=== PATIENT | male | born 1965 | race Two or more races ===

== ENCOUNTER 2016-11-27 05:22 | Observation (INO) | payer OTHER ==
[2016-11-27] MEDS ORDERED: NS 1,000 ML IV ONE (05:38)
[2016-11-27] MEDS ORDERED: HALOPERIDOL LACT 5 MG/ML INJ IVP ONE (05:38)
--- NOTE | 2016-11-27 05:39 | EDPHY ---
H & P Stated Complaint: NAUSE VOMITING PAST 5 HRS, HX GASTROPHORISSI - Personal History Current Tetanus/Diphtheria Vaccine: Yes Current Tetanus Diphtheria and Acellular Pertussis (TDAP): Yes - Medical/Surgical History Hx Asthma: No Hx Chronic Respiratory Disease: No Hx Diabetes: Yes Hx Cardiac Disease: No Hx Renal Disease: No Hx Cirrhosis: No Hx Alcoholism: No Hx HIV/AIDS: No Other PMH: GASTROPARISIS - Social History Smoking Status: Never smoked HPI/ROS: Chief Complaint: Abdominal pain, nausea, vomiting HPI: 51-year-old male with a history of type 2 diabetes and gastroparesis is presenting worsening nausea vomiting this morning which is similar to her prior episodes. Patient states that he moved to [place] 1 week ago from [facility]. He states that he often has to be to be admitted to the hospital every several months for episodes of nausea and vomiting. Has gastroparesis secondary to his type 2 diabetes. States that he has been having issues for about 6 years. No fevers or chills. Does use medical marijuana which he states helps his symptoms. No hematemesis. No diarrhea or constipation. No melena. No chest pain or shortness of breath ROS: 10 point Review of Systems is negative except as noted in the HPI. PMH: Gastroparesis, type 2 diabetes Medications: Insulin, marijuana Allergies: Penicillin Social History: No smoking, no alcohol, daily medical marijuana Family History: non-contributory Physical Exam: Gen: Awake, Alert, No Distress HEENT: Nose: no rhinorrhea Eyes: PERRLA, EOMI Mouth: Moist mucosa Neck: Supple, no JVD Chest: nontender, lungs clear to auscultation Heart: S1, S2 normal, no murmur Abd: Soft, mild diffuse tenderness, nonsurgical, no guarding Back: no CVA tenderness, no midline tenderness Ext: no edema, non-tender Skin: no rash Neuro: CN II-XII intact, Sensation grossly intact, Strength 5/5 in bilateral upper and lower extremities (Derrell Bowen) Constitutional: Initial Vital Signs Temperature (C) 36.9 C 11/27/16 05:23 Heart Rate 93 11/27/16 05:23 Respiratory Rate 20 11/27/16 05:23 Blood Pressure 141/93 H 11/27/16 05:23 O2 Sat (%) 95 11/27/16 05:23 O2 Delivery Mode Room Air Allergies/Adverse Reactions: penicillin G Allergy (Verified 11/27/16 05:26) Home Medications: Medication Instructions Recorded Medical Marijuana 11/27/16 Medical Decision Making ED Course/Re-evaluation: 51-year-old male with a history of gastroparesis and vomiting syndrome. Patient will be given Haldol and IV fluids initially and reassess. Patient is continuing to complain of nausea after receiving Haldol but he did have a. Where he was resting and sleeping comfortably. I have ordered Zofran for him. Patient will be signed out to Dr. Ruiz pending improvement if his symptoms or final disposition. (Derrell Bowen) This patient was signed over to me at shift change. He has already received Haldol and Zofran IV for persistent vomiting. 7:45 a.m.- Reglan and Benadryl IV given for persistent dry heaves. 8:35 am- still vomiting, Ativan 1 mg IV ordered. Regular insulin 6 units IV given for hyperglycemia. Will admit to the hospitalist service. (Lyn Ruiz ) Differential Diagnosis: Differential diagnosis includes though it is not limited to DKA, appendicitis, cholecystitis, diverticulitis, pyelonephritis, bowel perforation, small bowel obstruction. (Lyn Ruiz) - Data Points Laboratory Results: Laboratory Results 11/27/16 06:05 11/27/16 06:05 11/27/16 11/27/16 06:05 06:05 WBC 11.14 10^3/uL H 10^3/uL (3.80-9.50) RBC 5.34 10^6/uL 10^6/uL (4.40-6.38) Hgb 16.4 g/dL g/dL (13.7-17.5) Hct 47.0 % % (40.0-51.0) MCV 88.0 fL fL (81.5-99.8) MCH 30.7 pg pg (27.9-34.1) MCHC 34.9 g/dL g/dL (32.4-36.7) RDW 12.9 % % (11.5-15.2) Plt Count 218 10^3/uL 10^3/uL (150-400) MPV 12.6 fL H fL (8.7-11.7) Neut % (Auto) 66.3 % % (39.3-74.2) Lymph % (Auto) 22.8 % % (15.0-45.0) [place] % (Auto) 8.3 % % (4.5-13.0) Eos % (Auto) 1.4 % % (0.6-7.6) Baso % (Auto) 0.8 % % (0.3-1.7) Nucleat RBC Rel Count 0.0 % % (0.0-0.2) Absolute Neuts (auto) 7.38 10^3/uL H 10^3/uL (1.70-6.50) Absolute Lymphs (auto) 2.54 10^3/uL 10^3/uL (1.00-3.00) Absolute Monos (auto) 0.93 10^3/uL H 10^3/uL (0.30-0.80) Absolute Eos (auto) 0.16 10^3/uL 10^3/uL (0.03-0.40) Absolute Basos (auto) 0.09 10^3/uL 10^3/uL (0.02-0.10) Absolute Nucleated RBC 0.00 10^3/uL 10^3/uL (0-0.01) Immature Gran % 0.4 % % (0.0-1.1) Immature Gran # 0.04 10^3/uL 10^3/uL (0.00-0.10) Sodium 139 mEq/L mEq/L (134-144) Potassium 3.7 mEq/L mEq/L (3.5-5.2) Chloride 103 mEq/L mEq/L (97-110) Carbon Dioxide 22 mEq/l mEq/l (22-31) Anion Gap 14 mEq/L mEq/L (8-16) BUN 16 mg/dL mg/dL (7-23) Creatinine 0.7 mg/dL mg/dL (0.7-1.3) Estimated GFR > 60 Glucose 374 mg/dL H mg/dL (70-100) Calcium 9.7 mg/dL mg/dL (8.5-10.4) Medications Given: Discontinued Medications Diphenhydramine HCl (Benadryl Injection) 25 mg IVP EDNOW ONE Stop: 11/27/16 07:47 Last Admin: 11/27/16 08:07 Dose: 25 mg Haloperidol Lactate (Haldol Injection) 2.5 mg IVP EDNOW ONE Stop: 11/27/16 05:39 Last Admin: 11/27/16 06:00 Dose: 2.5 mg Sodium Chloride (Ns) 1,000 mls @ 0 mls/hr IV ONCE ONE PRN Reason: Wide Open Stop: 11/27/16 05:39 Last Admin: 11/27/16 06:00 Dose: 1,000 mls Lorazepam (Ativan Injection) 1 mg IVP EDNOW ONE Stop: 11/27/16 08:38 Last Admin: 11/27/16 08:44 Dose: 1 mg Metoclopramide HCl (Reglan Injection) 10 mg IVP EDNOW ONE Stop: 11/27/16 07:47 Last Admin: 11/27/16 08:09 Dose: 10 mg Ondansetron HCl (Zofran) 4 mg IVP EDNOW ONE Stop: 11/27/16 06:53 Last Admin: 11/27/16 06:55 Dose: 4 mg Departure - Departure Disposition: [facility] Inpatient Acute Clinical Impression: Intractable vomiting Qualifiers: Vomiting type: cyclical vomiting Nausea presence: with nausea Qualified Code(s) : G43.A1 - Cyclical vomiting, intractable Diabetes Qualifiers: Diabetes mellitus type: type 2 Diabetes mellitus complication status: with hyperglycemia Condition: Fair Referrals: NONE *PRIMARY CARE P,. [Primary Care Provider] - As per Instructions
[2016-11-27 06:12] LABS: % IMMATURE GRANULYOCYTES 0.4 % (0.0-1.1); ABSOLUTE IMMATURE GRANULOCYTES 0.04 10^3/uL (0.00-0.10); ADD DIFF? NO; ADD MORPH? NO; ADD SCAN? NO; ATYPICAL LYMPHOCYTE FLAG 0 (0-99); FRAGMENT RBC FLAG 0 (0-99); HEMOGLOBIN 16.4 g/dL (13.7-17.5); LEFT SHIFT FLG 0 (0-99); LIPEMIA HEMOLYSIS FLAG 90 (0-99); MEAN CELL HEMOGLOBIN 30.7 pg (27.9-34.1); MEAN CELL HEMOGLOBIN CONCENTR. 34.9 g/dL (32.4-36.7); MEAN PLATELET VOLUME 12.6 fL (8.7-11.7); PLATELET CLUMPS FLAG 0 (0-99); PLATELET COUNT 218 10^3/uL (150-400); RED BLOOD CELL COUNT 5.34 10^6/uL (4.40-6.38); RED CELL DISTRIBUTION WIDTH 12.9 % (11.5-15.2)
[2016-11-27 06:25] LABS: ANION GAP 14 mEq/L (8-16); CALCIUM 9.7 mg/dL (8.5-10.4); CARBON DIOXIDE 22 mEq/l (22-31); CHLORIDE 103 mEq/L (97-110); CREATININE 0.7 mg/dL (0.7-1.3); GLOMERULAR FILTRATION RATE > 60; GLUCOSE 374 mg/dL (70-100); POTASSIUM 3.7 mEq/L (3.5-5.2); SODIUM 139 mEq/L (134-144)
[2016-11-27] MEDS ORDERED: ONDANSETRON 4 MG/2 ML VIAL IVP ONE (06:52)
[2016-11-27] MEDS ORDERED: METOCLOPRAMIDE 10 MG/2 ML VIAL IVP ONE (07:46)
[2016-11-27] MEDS ORDERED: LORazepam 2 MG/ML INJ IVP ONE (08:37)
[2016-11-27] MEDS ORDERED: INSULIN REGULAR HUMAN 100 UNIT/ML IVP ONE (09:00)
[2016-11-27] MEDS ORDERED: OLANZapine DISINTEGR 5 MG TAB PO ONE (09:27)
--- NOTE | 2016-11-27 11:33 | PDGENHP ---
History and Physical History and Physical: Chief complaint: Intractable nausea and vomiting History of present illness: The patient is a 51-year-old male w/ PMH diabetes mellitus and gastroparesis and medical noncompliance who is being admitted for intractable nausea, vomiting , abdominal pain, and diarrhea that started yesterday. He cannot quantify episodes of vomiting, saying they have been "countless." Vomitus is described as yellow and brown. Denies blood in stool. Denies eating bad or questionable food such as mayonnaise dishes. Had chicken and pasta yesterday. Abdominal pain is worst in midepigastrium but is diffuse. Characterized as crampy and severe. Symptoms are better w/ "Dilaudid, Zofran, and compazine all at the same time." Symptoms are worse with hot, spicy food. He says this is a recurrent issue that started recurrently 5 years ago (but he did not always have diarrhea). He has gone to other hospitals for this in the past, mostly [facility] in [place]. Pt started smoking marijuana about 3 yrs ago to try to help w/ the recurrent vomiting. When he was told marijuana could contribute to his vomiting, he had tried abstaining from marijuana use 3 separate times in the past for up to 1.5 weeks at a time. He has had similar episodes in the past. Twice a month x 6 years. Has tried Reglan, which does not help. Has not tried using antidepressants. Has not seen a GI doctor for this. Has seen PCP in [place] in the past. He has not established a new doctor here. Past medical history: diabetes mellitus type 2 w/ peripheral neuropathy and gastroparesis and vision loss. Past surgical history: none. Medications: none. Was taking 75/25 insulin, but ran out of it a month ago. Denies having been on HTN or cholesterol medicine. Allergies: PCN - itching. Social history: denies alcohol use, tobacco use. Uses marijuana daily. Family history: all are healthy. , lives with and teenage son. They moved to [place] this last week. Review of systems: Gen: +fatigue, fever/chills. Head: no CASAS. No head trauma. Eyes: No vision changes. +chronic vision impairment from diabetes. Throat: +mild sore throat. +mild cough. (from vomiting). CV: no CP. no tachycardia. Resp: no SOB. no wheeze. GI: +abd pain, nausea, vomiting, diarrhea. no blood in stool. : no blood in urine or pain w/ urination. Heme/lymph: no leg swelling or swollen LNs. Skin: no rash or new lesions. Physical exam: General: The patient is a middle-aged male who is somnolent and in no acute distress. HEENT: normocephalic, extraocular movements intact, conjunctivae clear, no lesions on face. Nares and oral mucosa pink and dry. Neck: trachea midline, no visible masses, no external lesions. CV: +S1/S2, RRR, no MRG. Resp: unlabored, CTAB no RRW. Abd: soft and nondistended. Bowel sounds are present. Diffusely tender, worse in mid epigastrium. No rebound tenderness or guarding. No rigidity. Musculoskeletal: Slow, unsteady gait. Normal muscle bulk and tone. Neuro: cranial nerves II XII grossly intact. Intact gross motor and sensory function. Psych: appropriate mood/ blunted affect. Skin: no pallor. Vitals: Reviewed Labs: personally reviewed and interpreted. Other Data: none. Impression and plan: Abdominal pain w/ intractable nausea, vomiting, and diarrhea - likely Acute Gastroenteritis Dehydration, 2/2 above Generalized weakness, 2/2 above Diabetes Mellitus type 2 with gastroparesis, peripheral neuropathy, retinopathy Medical noncompliance Marijuana use -IVF. -Clear liquid diet, ADAT. -prn antiemetics, analgesics. -counseled pt on the importance of medical compliance. -restarting insulin - pt cannot remember how much he used to take. Starting low , will likely need adjustment. -Check lipase and LFT. -Counseled pt about how marijuana can cause hyperemesis and that it takes at least 2 weeks of not consuming marijuana to notice an effect. -VTE ppx - ambulatory. -Code status - full. DISPO: Observation in [facility] for <2 midnight stay anticipated.
[2016-11-27] MEDS ORDERED: OXYCODONE/APAP 5/325 TAB PO PRN (12:13)
[2016-11-27] MEDS ORDERED: METOCLOPRAMIDE 10 MG/2 ML VIAL IVP PRN (12:13)
[2016-11-27] MEDS ORDERED: D50W 25 GM/50 ML SYR IVP PRN (12:13)
[2016-11-27] MEDS ORDERED: ACETAMINOPHEN 325 MG TAB PO PRN (12:13)
[2016-11-27] MEDS ORDERED: ONDANSETRON DISINTEGRATING 4 MG TAB PO PRN (12:13)
[2016-11-27] MEDS ORDERED: PROTOCOL MAGNESIUM 1 DOSE IV PRN (12:39)
[2016-11-27] MEDS ORDERED: PROTOCOL POTASSIUM 1 DOSE MISC PRN (12:39)
[2016-11-27] MEDS: HYDROmorphONE/DILAUDID 1 MG/ML SYR IVP PRN ×3 (13:43→21:44)
[2016-11-27] MEDS: ONDANSETRON 4 MG/2 ML VIAL IVP PRN ×3 (13:43→21:44)
[2016-11-27 15:52] LABS: ALBUMIN 4.5 g/dL (3.5-5.0); BILIRUBIN,TOTAL 0.5 mg/dL (0.1-1.4); BILIRUBIN-CONJUGATED 0.3 mg/dL (0.0-0.5); BILIRUBIN-UNCONJUGATED 0.2 mg/dL (0.0-1.1); MAGNESIUM 1.7 mg/dL (1.6-2.3); TOTAL PROTEIN 7.6 g/dL (6.3-8.2)
[2016-11-27] MEDS: INSULIN LISPRO 100 UNIT/ML SC SCH (17:33)
[2016-11-27 18:29] LABS: POTASSIUM 4.3 mEq/L (3.5-5.2)
[2016-11-27] MEDS ORDERED: INSULIN GLARGINE 100 UNITS/ML SYRINGE SC SCH (21:00)
[2016-11-27] MEDS: NS W/ 20 KCl/L 1,000 ML IV SCH (21:45)
[2016-11-28] MEDS: HYDROmorphONE/DILAUDID 1 MG/ML SYR IVP PRN (03:05)
[2016-11-28] MEDS: ONDANSETRON 4 MG/2 ML VIAL IVP PRN (03:06)
[2016-11-28] MEDS: NS W/ 20 KCl/L 1,000 ML IV SCH (06:11)
[2016-11-28 06:15] LABS: % IMMATURE GRANULYOCYTES 0.3 % (0.0-1.1); ABSOLUTE IMMATURE GRANULOCYTES 0.04 10^3/uL (0.00-0.10); ADD DIFF? NO; ADD MORPH? NO; ADD SCAN? NO; ATYPICAL LYMPHOCYTE FLAG 0 (0-99); FRAGMENT RBC FLAG 0 (0-99); HEMATOCRIT 42.4 % (40.0-51.0); HEMOGLOBIN 14.6 g/dL (13.7-17.5); LEFT SHIFT FLG 0 (0-99); LIPEMIA HEMOLYSIS FLAG 90 (0-99); MEAN CELL HEMOGLOBIN 30.9 pg (27.9-34.1); MEAN CELL HEMOGLOBIN CONCENTR. 34.4 g/dL (32.4-36.7); MEAN CELL VOLUME 89.8 fL (81.5-99.8); MEAN PLATELET VOLUME 12.5 fL (8.7-11.7); PLATELET CLUMPS FLAG 0 (0-99); PLATELET COUNT 162 10^3/uL (150-400); RED BLOOD CELL COUNT 4.72 10^6/uL (4.40-6.38); RED CELL DISTRIBUTION WIDTH 12.8 % (11.5-15.2)
[2016-11-28 06:36] LABS: ANION GAP 9 mEq/L (8-16); CALCIUM 8.8 mg/dL (8.5-10.4); CARBON DIOXIDE 22 mEq/l (22-31); CHLORIDE 105 mEq/L (97-110); CREATININE 0.7 mg/dL (0.7-1.3); GLOMERULAR FILTRATION RATE > 60; GLUCOSE 175 mg/dL (70-100); MAGNESIUM 1.6 mg/dL (1.6-2.3); POTASSIUM 4.2 mEq/L (3.5-5.2); SODIUM 136 mEq/L (134-144)
[2016-11-28] MEDS: INSULIN LISPRO 100 UNIT/ML SC SCH ×2 (07:52→11:54)
[2016-11-28] MEDS ORDERED: MAGNESIUM SULF 1 GM/DEXTROSE 100 ML IV ONE (08:13)
[2016-11-28 11:47] VITALS: BP 113/76; PULSE 82; RESP 16; TEMP 98.6; O2SAT 99
--- NOTE | 2016-11-28 12:56 | PDDCSUM ---
Discharge Summary Discharge Summary: Date of Admission: [] Date of Discharge: [] Discharge Diagnoses: [] Admission Diagnoses: [] Consultants: [] Hospital Course: [] Physical Exam: [] Condition: [] Discharged to: [] Pertinent tests/labs/imaging: [] Medications: [] Special instructions: [] Follow up: [] [</>] 30 minutes of total time was spent on counseling and coordination of care for this patient's discharge.
== END 2016-11-28 13:46 | disposition home or self-care (01) ==
LOC: F3E 11:26
PROVIDERS: ADMIT Internal Medicine; ATTEND Internal Medicine
DX: E11.43 Type 2 diabetes mellitus with diabetic autonomic (poly)neuropathy (principal); K31.84 Gastroparesis; E86.0 Dehydration; E11.319 Type 2 diabetes mellitus with unspecified diabetic retinopathy without macular edema; H35.00 Unspecified background retinopathy; E11.42 Type 2 diabetes mellitus with diabetic polyneuropathy; G62.9 Polyneuropathy, unspecified; F12.90 Cannabis use, unspecified, uncomplicated; Z79.4 Long term (current) use of insulin; Z91.14 Patient's other noncompliance with medication regimen
CPT/HCPCS: 96361; 96374; 96375; 99285; G0378; J1170; J1200; J1815; J2060; J2405; J2765; J3475

== ENCOUNTER 2016-11-29 16:57 | Observation (INO) | payer OTHER ==
[2016-11-29] MEDS ORDERED: HALOPERIDOL LACT 5 MG/ML INJ IVP ONE (17:13)
--- NOTE | 2016-11-29 17:36 | EDPHY ---
H & P Stated Complaint: Gastroperisis dc'd yesterday Time Seen by Provider: 11/29/16 17:10 HPI/ROS: CHIEF COMPLAINT: nausea, vomiting HISTORY OF PRESENT ILLNESS: 51-year-old male who was discharged from the hospital yesterday for intractable nausea and vomiting with history of type 2 diabetes and gastroparesis noncompliant with his medications. Patient moved to [place] from [place] 1 week ago, he has not taken his insulin for 1 month. Patient reports episodes of intractable nausea, vomiting and abdominal pain that occur almost monthly requiring a 3 day stay in the hospital usually. Patient reports he was discharged home yesterday and was feeling fine until he ate which made his symptoms return. Pt denies fevers. He reports his pain is typical and no different than it usually is. He is requesting IV Dilaudid, Zofran and Compazine all at the same time. Patient reports he started smoking marijuana for these symptoms 2 years ago. He smokes daily. It helps with his nausea. REVIEW OF SYSTEMS: A comprehensive 10 point review of systems is otherwise negative aside from elements mentioned in the history of present illness. Source: Patient Exam Limitations: No limitations - Personal History Current Tetanus/Diphtheria Vaccine: Unsure Current Tetanus Diphtheria and Acellular Pertussis (TDAP): Unsure - Medical/Surgical History Hx Asthma: No Hx Chronic Respiratory Disease: No Hx Diabetes: Yes Hx Cardiac Disease: No Hx Renal Disease: No Hx Cirrhosis: No Hx Alcoholism: No Hx HIV/AIDS: No Hx Splenectomy or Spleen Trauma: No Other PMH: GASTROPARISIS r/t dm 2 poorly controlled - Social History Smoking Status: Never smoked Constitutional: Initial Vital Signs Temperature (C) 37.2 C 11/29/16 17:01 Heart Rate 75 11/29/16 17:01 Respiratory Rate 16 11/29/16 17:01 Blood Pressure 127/76 H 11/29/16 17:01 O2 Sat (%) 99 11/29/16 17:01 O2 Delivery Mode Room Air Allergies/Adverse Reactions: penicillin G Allergy (Verified 11/27/16 05:26) Home Medications: Medication Instructions Recorded Insulin NPH Hum/Reg Insulin Hm 7 unit SQ BID #10 ml 11/28/16 [Novolin 70-30 100 Unit/ml Vial] [place], Insulin Disposable 1 each MC BID #100 dis.needle 11/28/16 [Unifine Pentips] Syringe [Syringe, Insulin] 1 syr SQ BID #100 ea 11/28/16 Medical Decision Making ED Course/Re-evaluation: IV established, CBC and chemistry panel obtained, blood sugars 265, otherwise labs are unremarkable. Patient is given 5 mg of IV Haldol. He reports he is still having significant nausea and pain and is requesting Dilaudid. I have discussed the patient that I do not give narcotics for chronic abdominal pain and vomiting. Patient was given 25 mg of Benadryl and 50 mcg of intranasal ketamine. On re-examination he reports he is feeling better. I discussed discharging him in sending him home oral medications and patient reports he will be right back in the emergency department if I discharge him home. Patient says he has had this happen to him for many years and he is positive he will not be okay if I discharge him home. Patient will be admitted to the hospitalist. I have spoken with Dr. Costa. 1 L normal saline is hanging. - Data Points Laboratory Results: Laboratory Results 11/29/16 17:31 11/29/16 17:31 11/29/16 11/29/16 17:31 17:31 WBC 11.54 10^3/uL H 10^3/uL (3.80-9.50) RBC 5.28 10^6/uL 10^6/uL (4.40-6.38) Hgb 16.3 g/dL g/dL (13.7-17.5) Hct 46.0 % % (40.0-51.0) MCV 87.1 fL fL (81.5-99.8) MCH 30.9 pg pg (27.9-34.1) MCHC 35.4 g/dL g/dL (32.4-36.7) RDW 12.9 % % (11.5-15.2) Plt Count 183 10^3/uL 10^3/uL (150-400) MPV 12.4 fL H fL (8.7-11.7) Neut % (Auto) 71.3 % % (39.3-74.2) Lymph % (Auto) 18.0 % % (15.0-45.0) [place] % (Auto) 9.9 % % (4.5-13.0) Eos % (Auto) 0.1 % L % (0.6-7.6) Baso % (Auto) 0.4 % % (0.3-1.7) Nucleat RBC Rel Count 0.0 % % (0.0-0.2) Absolute Neuts (auto) 8.22 10^3/uL H 10^3/uL (1.70-6.50) Absolute Lymphs (auto) 2.08 10^3/uL 10^3/uL (1.00-3.00) Absolute Monos (auto) 1.14 10^3/uL H 10^3/uL (0.30-0.80) Absolute Eos (auto) 0.01 10^3/uL L 10^3/uL (0.03-0.40) Absolute Basos (auto) 0.05 10^3/uL 10^3/uL (0.02-0.10) Absolute Nucleated RBC 0.00 10^3/uL 10^3/uL (0-0.01) Immature Gran % 0.3 % % (0.0-1.1) Immature Gran # 0.04 10^3/uL 10^3/uL (0.00-0.10) Sodium 134 mEq/L mEq/L (134-144) Potassium 3.9 mEq/L mEq/L (3.5-5.2) Chloride 96 mEq/L L mEq/L (97-110) Carbon Dioxide 23 mEq/l mEq/l (22-31) Anion Gap 15 mEq/L mEq/L (8-16) BUN 11 mg/dL mg/dL (7-23) Creatinine 0.8 mg/dL mg/dL (0.7-1.3) Estimated GFR > 60 Glucose 265 mg/dL H mg/dL (70-100) Calcium 10.3 mg/dL D mg/dL (8.5-10.4) Total Bilirubin 1.5 mg/dL H D mg/dL (0.1-1.4) Conjugated Bilirubin 0.3 mg/dL mg/dL (0.0-0.5) Unconjugated Bilirubin 1.2 mg/dL H mg/dL (0.0-1.1) AST 18 IU/L IU/L (17-59) ALT 33 IU/L IU/L (21-72) Alkaline Phosphatase 85 IU/L IU/L (38-126) Total Protein 7.7 g/dL g/dL (6.3-8.2) Albumin 4.6 g/dL g/dL (3.5-5.0) Lipase 33.0 IU/L IU/L (23-300) Medications Given: Discontinued Medications Diphenhydramine HCl (Benadryl Injection) 25 mg IVP EDNOW ONE Stop: 11/29/16 17:45 Last Admin: 11/29/16 17:56 Dose: 25 mg Haloperidol Lactate (Haldol Injection) 5 mg IVP EDNOW ONE Stop: 11/29/16 17:14 Last Admin: 11/29/16 17:33 Dose: 5 mg Sodium Chloride (Ns) 1,000 mls @ 0 mls/hr IV ONCE ONE; Wide Open PRN Reason: Protocol Stop: 11/29/16 19:22 Last Admin: 11/29/16 19:30 Dose: 1,000 mls Ketamine HCl (Ketamine) 50 mg NASAL EDNOW ONE Stop: 11/29/16 17:45 Last Admin: 11/29/16 17:56 Dose: 50 mg Departure - Departure Disposition: [facility] Inpatient Acute Clinical Impression: Intractable vomiting Qualifiers: Vomiting type: cyclical vomiting Nausea presence: with nausea Qualified Code(s) : G43.A1 - Cyclical vomiting, intractable Condition: Fair Referrals: NONE *PRIMARY CARE P,. [Primary Care Provider] - As per Instructions
[2016-11-29] MEDS ORDERED: KETAMINE 500 MG/10 ML VIAL NASAL ONE (17:44)
[2016-11-29 17:51] LABS: % IMMATURE GRANULYOCYTES 0.3 % (0.0-1.1); ABSOLUTE IMMATURE GRANULOCYTES 0.04 10^3/uL (0.00-0.10); ADD DIFF? NO; ADD MORPH? NO; ADD SCAN? NO; ATYPICAL LYMPHOCYTE FLAG 0 (0-99); FRAGMENT RBC FLAG 0 (0-99); HEMOGLOBIN 16.3 g/dL (13.7-17.5); LEFT SHIFT FLG 0 (0-99); LIPEMIA HEMOLYSIS FLAG 90 (0-99); MEAN CELL HEMOGLOBIN 30.9 pg (27.9-34.1); MEAN CELL HEMOGLOBIN CONCENTR. 35.4 g/dL (32.4-36.7); MEAN CELL VOLUME 87.1 fL (81.5-99.8); MEAN PLATELET VOLUME 12.4 fL (8.7-11.7); PLATELET CLUMPS FLAG 0 (0-99); PLATELET COUNT 183 10^3/uL (150-400); RED BLOOD CELL COUNT 5.28 10^6/uL (4.40-6.38); RED CELL DISTRIBUTION WIDTH 12.9 % (11.5-15.2)
[2016-11-29 18:11] LABS: ALANINE AMINOTRANSFERASE 33 IU/L (21-72); ALBUMIN 4.6 g/dL (3.5-5.0); ALKALINE PHOSPHATASE 85 IU/L (38-126); ANION GAP 15 mEq/L (8-16); ASPARTATE AMINOTRANSFERASE 18 IU/L (17-59); BILIRUBIN,TOTAL 1.5 mg/dL (0.1-1.4); BILIRUBIN-CONJUGATED 0.3 mg/dL (0.0-0.5); BILIRUBIN-UNCONJUGATED 1.2 mg/dL (0.0-1.1); CALCIUM 10.3 mg/dL (8.5-10.4); CARBON DIOXIDE 23 mEq/l (22-31); CHLORIDE 96 mEq/L (97-110); CREATININE 0.8 mg/dL (0.7-1.3); GLOMERULAR FILTRATION RATE > 60; GLUCOSE 265 mg/dL (70-100); POTASSIUM 3.9 mEq/L (3.5-5.2); SODIUM 134 mEq/L (134-144); TOTAL PROTEIN 7.7 g/dL (6.3-8.2)
[2016-11-29] MEDS ORDERED: NS 1,000 ML IV ONE ×2 (19:21→20:49)
[2016-11-29] MEDS ORDERED: LORazepam 2 MG/ML INJ IVP PRN (20:49)
[2016-11-29] MEDS ORDERED: ACETAMINOPHEN 325 MG TAB PO PRN (20:49)
[2016-11-29] MEDS ORDERED: NS 1,000 ML IV SCH (21:00)
[2016-11-29 21:32] LABS: ANION GAP 10 mEq/L (8-16); CALCIUM 8.8 mg/dL (8.5-10.4); CARBON DIOXIDE 23 mEq/l (22-31); CHLORIDE 102 mEq/L (97-110); CREATININE 0.6 mg/dL (0.7-1.3); GLOMERULAR FILTRATION RATE > 60; GLUCOSE 231 mg/dL (70-100); POTASSIUM 3.9 mEq/L (3.5-5.2); SODIUM 135 mEq/L (134-144)
[2016-11-29] MEDS: ONDANSETRON DISINTEGRATING 4 MG TAB PO SCH (22:08)
[2016-11-29] MEDS: PROMETHAZINE HCL 25 MG/ML INJ IVP SCH (23:16)
--- NOTE | 2016-11-29 23:20 | PDGENHP ---
History and Physical - Chief Complaint Vomiting - History of Present Illness 51 yo M w/ IDDM dx'd 12 years ago c/b gastroparesis and neuropathy readmitted after recent discharge for intractable nausea and vomiting. Patient recently admitted for his usual N/V symptoms. He was discharged yesterday but was unable to tolerate PO at home. He continues to have nausea, frequent non-bloody vomiting, and diffuse abdominal pain. He reports having similar symptoms twice per month for the last 6 years. He has had numerous tests in the past and states the only thing he remembers being abnormal is a gastric emptying study that showed gastroparesis. He smokes significant amounts of MJ daily and consumes about 1 oz per week. History Information - Allergies/Home Medication List Allergies/Adverse Reactions: penicillin G Allergy (Verified 11/29/16 19:42) Unknown Home Medications: Esomeprazole Magnesium [Nexium] 20 mg PO DAILY 11/29/16 [Last Taken 11/27/16] Insulin NPH Hum/Reg Insulin Hm [Novolin 70-30 100 Unit/ml Vial] 10 unit SQ BID 11/29/16 [Last Taken 11/27/16] I have personally reviewed and updated: family history, medical history - Past Medical History diabetes type 2 Additional medical history: Cyclical N/V - Surgical History Reports: no pertinent surgical hx - Family History Positive for: cancer, diabetes type II Additional family history: Denies family hx of gastrointestinal disease - Social History Smoking Status: Never smoked Alcohol Use: None Drug Use: Marijuana (1 oz weekly) Review of Systems ROS: 10pt was reviewed & negative except for what was stated in HPI & below Physical Exam Temp Pulse Resp BP Pulse Ox 37.3 C 88 16 152/84 H 96 11/29/16 20:25 11/29/16 20:25 11/29/16 20:25 11/29/16 20:25 11/29/16 20:25 Constitutional: appears nourished, uncomfortable Eyes: PERRL, EOMI Ears, Nose, Mouth, Throat: moist mucous membranes, hearing normal Cardiovascular: regular rate and rhythym, no murmur, rub, or gallop Respiratory: no respiratory distress, clear to auscultation Gastrointestinal: normoactive bowel sounds, tenderness (Diffuse), No guarding, No rebound Skin: warm, no rashes or abrasions Musculoskeletal: full muscle strength, no muscle tenderness Neurologic: AAOx3, CN II-XII Intact Psychiatric: interacting appropriately, not anxious Lab Data & Imaging Review 11/29/16 17:31 11/29/16 21:02 WBC 11.54 10^3/uL (3.80-9.50) H 11/29/16 17:31 RBC 5.28 10^6/uL (4.40-6.38) 11/29/16 17:31 Hgb 16.3 g/dL (13.7-17.5) 11/29/16 17:31 Hct 46.0 % (40.0-51.0) 11/29/16 17:31 MCV 87.1 fL (81.5-99.8) 11/29/16 17:31 MCH 30.9 pg (27.9-34.1) 11/29/16 17:31 MCHC 35.4 g/dL (32.4-36.7) 11/29/16 17:31 RDW 12.9 % (11.5-15.2) 11/29/16 17:31 Plt Count 183 10^3/uL (150-400) 11/29/16 17:31 MPV 12.4 fL (8.7-11.7) H 11/29/16 17:31 Neut % (Auto) 71.3 % (39.3-74.2) 11/29/16 17:31 Lymph % (Auto) 18.0 % (15.0-45.0) 11/29/16 17:31 [place] % (Auto) 9.9 % (4.5-13.0) 11/29/16 17:31 Eos % (Auto) 0.1 % (0.6-7.6) L 11/29/16 17:31 Baso % (Auto) 0.4 % (0.3-1.7) 11/29/16 17:31 Nucleat RBC Rel Count 0.0 % (0.0-0.2) 11/29/16 17:31 Absolute Neuts (auto) 8.22 10^3/uL (1.70-6.50) H 11/29/16 17:31 Absolute Lymphs (auto) 2.08 10^3/uL (1.00-3.00) 08/07/17 17:31 Absolute Monos (auto) 1.14 10^3/uL (0.30-0.80) H 11/29/16 17:31 Absolute Eos (auto) 0.01 10^3/uL (0.03-0.40) L 11/29/16 17:31 Absolute Basos (auto) 0.05 10^3/uL (0.02-0.10) 11/29/16 17:31 Absolute Nucleated RBC 0.00 10^3/uL (0-0.01) 11/29/16 17:31 Immature Gran % 0.3 % (0.0-1.1) 11/29/16 17:31 Immature Gran # 0.04 10^3/uL (0.00-0.10) 11/29/16 17:31 Sodium 135 mEq/L (134-144) 11/29/16 21:02 Potassium 3.9 mEq/L (3.5-5.2) 11/29/16 21:02 Chloride 102 mEq/L (97-110) 11/29/16 21:02 Carbon Dioxide 23 mEq/l (22-31) 11/29/16 21:02 Anion Gap 10 mEq/L (8-16) 11/29/16 21:02 BUN 9 mg/dL (7-23) 11/29/16 21:02 Creatinine 0.6 mg/dL (0.7-1.3) L 11/29/16 21:02 Estimated GFR > 60 11/29/16 21:02 Glucose 231 mg/dL (70-100) H 11/29/16 21:02 Calcium 8.8 mg/dL (8.5-10.4) 11/29/16 21:02 Total Bilirubin 1.5 mg/dL (0.1-1.4) H D 11/29/16 17:31 Conjugated Bilirubin 0.3 mg/dL (0.0-0.5) 11/29/16 17:31 Unconjugated Bilirubin 1.2 mg/dL (0.0-1.1) H 11/29/16 17:31 AST 18 IU/L (17-59) 11/29/16 17:31 ALT 33 IU/L (21-72) 11/29/16 17:31 Alkaline Phosphatase 85 IU/L (38-126) 11/29/16 17:31 Total Protein 7.7 g/dL (6.3-8.2) 11/29/16 17:31 Albumin 4.6 g/dL (3.5-5.0) 11/29/16 17:31 Lipase 33.0 IU/L (23-300) 11/29/16 17:31 Assessment & Plan Assessment: 51 yo M w/ IDDM readmitted after recent discharge with ongoing nausea and vomiting. Plan: 1. Intractable nausea/vomiting - Reviewed recent admission records where patient was treated supportively with IVF and anti-emetics. Considerations of diagnosis include cyclical vomiting syndrome, gastroparesis, and cannabis hyperemesis syndrome. Patient does state that gastric emptying study was abnormal in the past. Noting long history of diabetes, this seems reasonable. However, he does smoke marijuana heavily as well, which is surely not helping. Of note, he says he was previously on metoclopramide but this was discontinued due to dystonic reaction. - IVF, anti-emetics scheduled + PRN - May benefit from erythromycin and/or GI consultation 2. IDDM - Takes insulin 70/30 10u BID as an outpatient. Will manage here with sliding scale for now noting minimal PO intake. Diet - Clears, ADAT Code - Full Ppx - Low risk, ambulate TID Dispo - Admit to observation
[2016-11-30] MEDS: ONDANSETRON DISINTEGRATING 4 MG TAB PO SCH ×4 (01:35→14:45)
[2016-11-30 05:06] VITALS: TEMP 98.8
[2016-11-30] MEDS: PROMETHAZINE HCL 25 MG/ML INJ IVP SCH ×2 (05:10→16:33)
[2016-11-30] MEDS ORDERED: HALOPERIDOL 0.5 MG TAB PO PRN (08:47)
[2016-11-30] MEDS ORDERED: HALOPERIDOL LACT 5 MG/ML INJ IVP PRN (08:47)
[2016-11-30] MEDS ORDERED: POLYETHYLENE GLYCOL 3350 17 GM PKT PO PRN (08:48)
[2016-11-30] MEDS ORDERED: BISACODYL 10 MG SUPP PR PRN (08:48)
[2016-11-30] MEDS ORDERED: MAGNESIUM HYDROXIDE 30 ML UDCUP PO PRN (08:48)
[2016-11-30] MEDS ORDERED: LACTULOSE 20 GM/30 ML UDCUP PO PRN (08:48)
[2016-11-30] MEDS ORDERED: INSULIN 70/30 HUMAN 100 UNITS/ML SYR SC SCH (09:00)
[2016-11-30] MEDS ORDERED: SENNOSIDES/DOCUSATE SODIUM TAB PO SCH (09:00)
[2016-11-30] MEDS ORDERED: NON-FORMULARY NEW DRUG (Esomeprazole Magnesium [Nexium] 20 MG) PO SCH (09:00)
[2016-11-30] MEDS ORDERED: PANTOPRAZOLE SODIUM 40 MG TAB PO SCH (09:00)
[2016-11-30] MEDS ORDERED: PROCHLORPERAZINE MALEATE 10 MG TAB PO PRN (09:03)
[2016-11-30] MEDS ORDERED: MAGNESIUM CITRATE 300 ML BOTTLE PO ONE (09:03)
[2016-11-30] MEDS ORDERED: BISACODYL 5 MG EC TAB PO ONE (09:06)
[2016-11-30] MEDS ORDERED: BISACODYL 5 MG EC TAB PO PRN (09:06)
[2016-11-30 13:04] LABS: % IMMATURE GRANULYOCYTES 0.3 % (0.0-1.1); ABSOLUTE IMMATURE GRANULOCYTES 0.03 10^3/uL (0.00-0.10); ADD DIFF? NO; ADD MORPH? NO; ADD SCAN? NO; ATYPICAL LYMPHOCYTE FLAG 0 (0-99); FRAGMENT RBC FLAG 0 (0-99); HEMATOCRIT 43.9 % (40.0-51.0); HEMOGLOBIN 15.6 g/dL (13.7-17.5); LEFT SHIFT FLG 0 (0-99); LIPEMIA HEMOLYSIS FLAG 90 (0-99); MEAN CELL HEMOGLOBIN 31.3 pg (27.9-34.1); MEAN CELL HEMOGLOBIN CONCENTR. 35.5 g/dL (32.4-36.7); MEAN CELL VOLUME 88.2 fL (81.5-99.8); MEAN PLATELET VOLUME 12.1 fL (8.7-11.7); PLATELET CLUMPS FLAG 0 (0-99); PLATELET COUNT 149 10^3/uL (150-400); RED BLOOD CELL COUNT 4.98 10^6/uL (4.40-6.38); RED CELL DISTRIBUTION WIDTH 12.9 % (11.5-15.2)
[2016-11-30 13:25] LABS: ALANINE AMINOTRANSFERASE 30 IU/L (21-72); ALBUMIN 4.1 g/dL (3.5-5.0); ALKALINE PHOSPHATASE 64 IU/L (38-126); ANION GAP 13 mEq/L (8-16); ASPARTATE AMINOTRANSFERASE 16 IU/L (17-59); BILIRUBIN,TOTAL 1.5 mg/dL (0.1-1.4); BILIRUBIN-CONJUGATED 0.3 mg/dL (0.0-0.5); BILIRUBIN-UNCONJUGATED 1.2 mg/dL (0.0-1.1); CALCIUM 9.2 mg/dL (8.5-10.4); CARBON DIOXIDE 22 mEq/l (22-31); CHLORIDE 102 mEq/L (97-110); CREATININE 0.7 mg/dL (0.7-1.3); GLOMERULAR FILTRATION RATE > 60; GLUCOSE 189 mg/dL (70-100); POTASSIUM 3.6 mEq/L (3.5-5.2); SODIUM 137 mEq/L (134-144)
--- NOTE | 2016-11-30 16:11 | PDDCSUM ---
Discharge Summary Discharge Summary: DISCHARGE SUMMARY FOLLOW-UP ITEMS: Establish outpatient gastroenterology care DATE OF ADMISSION: 11/29/2016 DATE OF DISCHARGE: 11/30/2016 DISCHARGE DIAGNOSES: 1. Acute nausea and vomiting 2. Suspected gastroparesis 3. Suspected Gilbert's syndrome CONSULTATIONS: None PROCEDURES / IMAGING: None CHIEF COMPLAINT: Acute nausea and vomiting SUBJECTIVE: Patient is feeling well at time of discharge, he has moved his bowels, his nausea and vomiting have stabilized PHYSICAL EXAM ON DISCHARGE: Systolic blood pressure is 100, heart rate 70, afebrile overnight, satting well on room air, alert awake oriented x3, bowel sounds are present, there is no abdominal guarding LABS ON DISCHARGE: White blood cell count 54923, hemoglobin 15.6, creatinine 0.7, potassium 3.6, total bilirubin 1.5, unconjugated bilirubin 1.2, rest of liver panel unremarkable HOSPITAL COURSE BY PROBLEM: 1. Acute nausea and vomiting. The patient presented with acute nausea and vomiting most likely secondary to gastroparesis in the setting of diabetes mellitus. The patient reports that he has had extensive GI workup in the outpatient setting, and he recently relocated here from [place]. The patient's physical exam was not concerning for peritonitis, and no additional imaging was indicated. Received supportive management with IV fluids, oral and IV antiemetics and pain medications. This is his 2nd presentation for the same issue over the past 4 days. Situation was initially stabilized and he was discharged by Dr. Whatley over the weekend. On this presentation, his situation rapidly stabilized, by including extensive array of antiemetic medications. After trial in air, the patient has stabilized on oral Zofran, oral Compazine, oral Ativan. We have recommended that he take these medications in this order, respectively. We have off so recommended that he utilize a laxative daily so that he has regular bowel movements and constipation does not exacerbate his issue. He has moved his bowels prior to discharge, and he will utilize MiraLax daily at home. It should be noted that the patient is voiding Reglan given that it produced a dystonic reaction in the past. With the patient really needs is consistent outpatient follow-up and to be established with both the primary care provider and co founder and ceo. We have provided the patient with referrals and he is very interested in establishing care. It should be noted that the patient reports experiences these symptoms once or twice per month, and that historically he has had a primary care provider who would bring him into the office for IV fluids, and then discharge back home, in order to support the patient and avoid hospitalizations. The patient is interested in a similar care plan if 1 is able to be provided to him. DISCHARGE MEDICATIONS: Please see official discharge medication reconciliation sheet in chart , Zofran as needed, Compazine as needed, low-dose Ativan as needed, 20 tablets prescribed. MiraLax daily. DISCHARGE INSTRUCTIONS: Please establish care at [facility] will lamonte Dorsey the [facility].
[2016-11-30 16:35] VITALS: BP 113/68; PULSE 91; RESP 16; O2SAT 96
== END 2016-11-30 17:45 | disposition home or self-care (01) ==
LOC: F3E 20:22
PROVIDERS: ADMIT Internal Medicine; ATTEND Internal Medicine
DX: R11.2 Nausea with vomiting, unspecified (principal); F12.90 Cannabis use, unspecified, uncomplicated; Z88.0 Allergy status to penicillin
CPT/HCPCS: G0378; J1200; J1815; J2060; J2550; 96374

== ENCOUNTER 2017-01-19 10:44 | Inpatient (IN) | payer OTHER ==
[2017-01-19] MEDS ORDERED: PROMETHAZINE HCL 25 MG/ML INJ IVP ONE (11:16)
[2017-01-19] MEDS ORDERED: ONDANSETRON 4 MG/2 ML VIAL IVP ONE (11:16)
[2017-01-19] MEDS ORDERED: METOCLOPRAMIDE 10 MG/2 ML VIAL IVP ONE (11:16)
[2017-01-19] MEDS ORDERED: NS 1,000 ML IV ONE ×2 (11:16)
--- NOTE | 2017-01-19 11:23 | EDPHY ---
H & P Time Seen by Provider: 01/19/17 10:57 HPI/ROS: CHIEF COMPLAINT: Vomiting, abdominal pain Limitations: pt is reluctant or feels too bad to provide clinical history HISTORY OF PRESENT ILLNESS: 51-year-old male with a history of diabetes and cyclic vomiting syndrome presents with vomiting and abdominal pain. Onset of generalized abdominal pain last evening, associated with multiple episodes of vomiting. The pain is constant and severe, similar to prior episodes of cyclic vomiting syndrome. Compazine and Dilaudid usually helps his symptoms. Multiple prior emergency department visits and admissions in [place] for similar symptoms. Admitted to [facility] in 11/2016 for gastroparesis. Discharged home on Compazine, Zofran and Ativan. He is a daily marijuana user. REVIEW OF SYSTEMS: Constitutional: No fever, no chills, no recent illness Eyes: No visual changes ENT: No sore throat Respiratory: No cough, no shortness of breath Cardiac: No chest pain Genitourinary: no dysuria Musculoskeletal: No leg pain or swelling Skin: No rash Neurological: No headache Psychiatric: no agitation Past Medical/Surgical History: Diabetes, type II Gastroparesis Cyclic vomiting syndrome Social History: Recently moved to [place]. Smoking Status: Never smoked Physical Exam: General Appearance: Alert, eyes closed, mumbling speech Eyes: Pupils equal and round, no conjunctival pallor or injection ENT, Mouth: Mucous membranes moist Neck: Normal inspection Respiratory: Lungs are clear to auscultation Cardiovascular: Regular rate and rhythm Gastrointestinal: Abdomen is soft, diffuse tenderness, normal bowel sounds Neurological: A&O, nonfocal exam Skin: Warm and dry, no rash Extremities: Nontender, no pedal edema Psychiatric: flat affect Constitutional: Initial Vital Signs Temperature (C) 36.6 C 01/19/17 10:45 Heart Rate 101 H 01/19/17 10:45 Respiratory Rate 18 01/19/17 10:45 Blood Pressure 131/95 H 01/19/17 10:45 O2 Sat (%) 99 01/19/17 10:45 O2 Delivery Mode Room Air Allergies/Adverse Reactions: penicillin G Allergy (Verified 11/29/16 19:42) Unknown Home Medications: Medication Instructions Recorded Insulin NPH Hum/Reg Insulin Hm 5 unit SQ BID@,11/29/16 [Novolin 70-30 100 Unit/ml Vial] Medical Decision Making ED Course/Re-evaluation: This patient presents with gastroparesis/cyclic vomiting syndrome. IV normal saline 2 L given, as well as Reglan, Phenergan and Zofran IV. I do not feel that abdominal imaging is indicated at this point. Persistent dry heaves and feeling miserable. Ativan 1mg IV given. Abd exam unchanged. Laboratory tests reviewed and reveal metabolic acidosis and hyperglycemia. He is a type 2 diabetic and these laboratory findings are likely secondary to dehydration; doubt DKA given that he is a type 2 diabetic. An ABG was performed to rule out DKA. Arterial pH is 7.38; no evidence of DKA. Regular Insulin 10 units IV given. The 2nd L of IV fluids infusing. I will repeat Chem 7 after the ABG and insulin. Abd exam remains benign. Pt continues to feel very nauseated and weak. Abd exam unchanged. The hospitalist service was consulted for admission. Pt has difficult IV access. PICC line ordered for IVF/medication needs during hospitalization. Differential Diagnosis: Differential diagnosis includes though it is not limited to DKA, hypoglycemia, appendicitis, cholecystitis, diverticulitis, pyelonephritis, bowel perforation, small bowel obstruction. - Data Points Laboratory Results: Laboratory Results 01/19/17 11:20 01/19/17 11:20 Medications Given: Enoxaparin Sodium (Lovenox) 40 mg SC DAILY YAYO Stop: 07/19/17 08:59 Last Admin: 01/20/17 08:10 Dose: 40 mg Sodium Chloride (Ns) 1,000 mls @ 200 mls/hr IV CONT YAYO Stop: 01/20/17 20:14 Last Admin: 01/19/17 22:40 Dose: 1,000 mls Insulin Glargine (Lantus Syringe) 20 units SC DAILY YAYO Stop: 07/18/17 15:44 Last Admin: 01/20/17 08:08 Dose: 20 units Insulin Human Lispro (Humalog Lispro) 0 unit SC TIDMEAL YAYO PRN Reason: Protocol Stop: 07/18/17 17:59 Last Admin: 01/20/17 08:09 Dose: 8 i.unit Ondansetron HCl (Zofran) 4 mg IVP Q4HRS PRN PRN Reason: Nausea/Vomiting, Can't Take PO Stop: 07/18/17 15:07 Last Admin: 01/20/17 05:48 Dose: 4 mg Ondansetron HCl (Zofran Odt) 4 mg PO Q4HRS PRN PRN Reason: Nausea/Vomiting, Use 1st Stop: 07/18/17 15:07 Last Admin: 01/20/17 10:17 Dose: 4 mg Oxycodone HCl (Oxycodone Ir) 10 mg PO Q4HRS PRN PRN Reason: Pain, Severe Able to Take PO Stop: 01/30/17 09:33 Last Admin: 01/20/17 10:16 Dose: 10 mg Discontinued Medications Hydromorphone HCl (Dilaudid) 0.2 - 0.4 mg IVP Q4HRS PRN PRN Reason: Pain, Severe Unable to Take PO Stop: 01/29/17 15:07 Last Admin: 01/20/17 06:46 Dose: 0.4 mg Sodium Chloride (Ns) 1,000 mls @ 0 mls/hr IV EDNOW ONE; Wide Open PRN Reason: Protocol Stop: 01/19/17 11:17 Last Admin: 01/19/17 11:38 Dose: 1,000 mls Sodium Chloride (Ns) 1,000 mls @ 0 mls/hr IV EDNOW ONE; Wide Open PRN Reason: Protocol Stop: 01/19/17 11:17 Last Admin: 01/19/17 12:35 Dose: 1,000 mls Insulin Human Regular (Humulin R) 10 unit IVP EDNOW ONE Stop: 01/19/17 12:17 Last Admin: 01/19/17 12:34 Dose: 10 unit Lorazepam (Ativan Injection) 1 mg IVP EDNOW ONE Stop: 01/19/17 12:11 Last Admin: 01/19/17 12:30 Dose: 1 mg Lorazepam (Ativan Injection) 0.5 - 1 mg IVP Q6 PRN PRN Reason: Anxiety, Unable to Take PO Stop: 07/18/17 20:25 Last Admin: 01/19/17 21:07 Dose: 1 mg Metoclopramide HCl (Reglan Injection) 10 mg IVP EDNOW ONE Stop: 01/19/17 11:17 Last Admin: 01/19/17 11:39 Dose: 10 mg Ondansetron HCl (Zofran) 4 mg IVP EDNOW ONE Stop: 01/19/17 11:17 Last Admin: 01/19/17 11:39 Dose: 4 mg Promethazine HCl (Phenergan) 12.5 mg IVP EDNOW ONE Stop: 01/19/17 11:17 Last Admin: 01/19/17 11:39 Dose: 12.5 mg Promethazine HCl (Phenergan) 6.25 - 12.5 mg IVP Q6HRS PRN PRN Reason: Nausea/Vomiting, Use 2nd Stop: 07/18/17 15:07 Last Admin: 01/20/17 02:50 Dose: 12.5 mg Departure - Departure Disposition: [facility] In[facility] Acute Clinical Impression: Dehydration Cyclic vomiting syndrome Qualifiers: Vomiting Intractability: intractable Nausea presence: with nausea Qualified Code(s): G43.A1 - Cyclical vomiting, intractable Diabetes Qualifiers: Diabetes mellitus type: type 2 Diabetes mellitus complication status: with hyperglycemia Diabetes mellitus mcc insulin use: with mcc use Qualified Code(s): E11.65 - Type 2 diabetes mellitus with hyperglycemia Condition: Fair
[2017-01-19 11:54] LABS: ALANINE AMINOTRANSFERASE 28 IU/L (21-72); ALBUMIN 4.9 g/dL (3.5-5.0); ALKALINE PHOSPHATASE 104 IU/L (38-126); ANION GAP 23 mEq/L (8-16); ASPARTATE AMINOTRANSFERASE 30 IU/L (17-59); BILIRUBIN,TOTAL 1.1 mg/dL (0.1-1.4); BILIRUBIN-CONJUGATED 0.5 mg/dL (0.0-0.5); BILIRUBIN-UNCONJUGATED 0.6 mg/dL (0.0-1.1); CALCIUM 10.5 mg/dL (8.5-10.4); CARBON DIOXIDE 14 mEq/l (22-31); CHLORIDE 102 mEq/L (97-110); CREATININE 0.7 mg/dL (0.7-1.3); GLOMERULAR FILTRATION RATE > 60; GLUCOSE 500 mg/dL (70-100); POTASSIUM 5.1 mEq/L (3.5-5.2); SODIUM 139 mEq/L (134-144); SPECIMEN HEMOLYSIS 142; TOTAL PROTEIN 8.5 g/dL (6.3-8.2)
[2017-01-19] MEDS ORDERED: LORazepam 2 MG/ML INJ IVP ONE (12:10)
[2017-01-19] MEDS ORDERED: INSULIN REGULAR HUMAN 100 UNIT/ML IVP ONE (12:16)
[2017-01-19 12:34] LABS: BASE EXCESS -8.3 mEq/L (-2.5-2.5); BICARBONATE 15 mEq/L (22-26); MEASURED OXYGEN SATURATION 96 % (92-95); PCO2 25 mmHg (34-38); PO2 86 mmHg (65-75); TCO2 15 mEq/L (23-27)
[2017-01-19] MEDS ORDERED: ALTEPLASE 2 MG VIAL IVP PRN (13:44)
[2017-01-19] MEDS ORDERED: ACETAMINOPHEN 325 MG TAB PO PRN (15:08)
[2017-01-19 15:29] LABS: BASE EXCESS -6.3 mEq/L (-2.5-2.5); BICARBONATE 17 mEq/L (22-26); MEASURED OXYGEN SATURATION 95 % (92-95); PCO2 28 mmHg (34-38); PO2 76 mmHg (65-75); TCO2 17 mEq/L (23-27)
[2017-01-19] MEDS ORDERED: D50W 25 GM/50 ML SYR IVP PRN (15:33)
[2017-01-19] MEDS: INSULIN GLARGINE 100 UNITS/ML SYRINGE SC SCH (16:18)
--- NOTE | 2017-01-19 16:30 | GHP ---
[f rep st] HISTORY AND PHYSICAL DATE OF ADMISSION: 01/19/2017 HISTORY OF PRESENT ILLNESS: The patient is a 51-year-old gentleman with a history of diabetes and a few recent presentations to the ER for nausea and vomiting. He is relatively new to town. It sounds like this was a problem for him previously in [place]. The patient acknowledges daily marijuana use and multiple hot showers per day. It sounds like from a previous discharge summary, it was suggeste d the patient perhaps has cannabis hyperemesis syndrome. When I see the patient, the patient notes that he has not eaten. He has been having nausea and vomit ing for at least 2 days, has not eaten. The patient was in a position and not particularly ans wering questions with his eyes closed. This is similar to presentation how he was when the ER physic tristan saw him. Reviewing previous admissions, this sounds like it was similar presentation. The patie nt does note some abdominal pain. He has had no hematemesis or coffee-ground emesis. No shortness o f breath. Regarding his diabetes, his med recon says NPH twice a day. It is not clear if he has type 1 or type 2 diabetes from the notes or from the information the patient was giving me. REVIEW OF SYSTEMS: Complete 10-point review of systems conducted, negative except as noted in the HP I. PAST MEDICAL HISTORY: 1. Diabetes. A previous note suggests type 2. 2. Peripheral neuropathy. 3. Gastroparesis. 4. Vision loss. It sounds like a month ago, he went without insulin for a month. In fact, he did t hat without presenting for DKA so strongly suggestive of type 2 physiology. ALLERGIES: Penicillin. HOME MEDICATIONS: NPH insulin, esomeprazole, lorazepam, ondansetron. SOCIAL HISTORY: No alcohol. Daily marijuana. From [place], now living here. PHYSICAL EXAM: VITAL SIGNS: Temp 36.6, blood pressure 131/95, pulse 101, breathing 18 times a minut e, 99% on room air. GENERAL: No acute distress. Somnolent but arousable. HEENT: Sclerae are anic teric. Oropharynx clear. Mucous membranes moist. NECK: Supple without lymphadenopathy or JVD. JAMES NGS: Clear to auscultation bilaterally. HEART: S1, S2. Not tachycardic. ABDOMEN: Soft. Bowel s ounds are present. There is no rebound or guarding. LOWER EXTREMITIES: No edema. Calves are nonte nder. SKIN: Without rash. NEUROLOGIC: Nonfocal. LABS: The CBC was rejected. An ABG on presentation: His pH 7.39 with a pCO2 of 28, pO2 of 76, and a bicarb of 17. Repeat study showed a pH of 7.38 with a pCO2 of 25, a pO2 of 86, and a serum bicarb of 15. Sodium 139, potassium 5.1, chloride 102, bicarb 14. BUN , creatinine 0.7. Anion g ap is elevated at 23. Glucose is 500. Calcium is 10.5. I have discussed the case with Dr. Nelly Ruiz. ASSESSMENT/PLAN: A 51-year-old gentleman presents with abdominal pain, nausea, vomiting, anion gap a cidosis. 1. Anion gap acidosis. This is with hyperglycemia concerning for potential diabetic ketoacidosis. Noted, however, is a normal serum pH. I suspect the patient has ketoacidosis from not eating as oppo sed to diabetic ketoacidosis with metabolism of free fatty acids. We will repeat a metabolic panel. I think we can hold off on intensive care unit admission and insulin drip. I will administer him sl iding scale insulin and NPH insulin now. 2. Nausea, vomiting. I suspect that this is cannabis hyperemesis syndrome. We will provide intrave nous antiemetics. I would recommend moderation to cessation of use. Given his symptoms, we will pro vide intravenous Phenergan. 3. Abdominal pain. Probably secondary to vomiting. 4. Diabetes. I will check a hemoglobin A1c. I think it is also reasonable to check a C-peptide, ma y not come back during this admission. I have suspicion this patient will return to the hospital wit h some regularity, so we will go ahead and at least understand what type of diabetes he has. 5. Prophylaxis. Low molecular weight heparin. 6. Disposition. This patient will need greater than 2 midnights given anion gap acidosis and nausea , vomiting. /[id number]/MODL
[2017-01-19] MEDS: NS 1,000 ML IV SCH ×2 (17:30→22:40)
[2017-01-19] MEDS: INSULIN LISPRO 100 UNIT/ML SC SCH (17:34)
[2017-01-19] MEDS: ONDANSETRON DISINTEGRATING 4 MG TAB PO PRN (18:41)
[2017-01-19] MEDS: PROMETHAZINE HCL 25 MG/ML INJ IVP PRN (19:45)
[2017-01-19] MEDS ORDERED: LORazepam 2 MG/ML INJ IVP PRN (20:26)
[2017-01-19 21:43] LABS: % IMMATURE GRANULYOCYTES 0.5 % (0.0-1.1); ABSOLUTE IMMATURE GRANULOCYTES 0.08 10^3/uL (0.00-0.10); ADD DIFF? NO; ADD MORPH? NO; ADD SCAN? NO; ATYPICAL LYMPHOCYTE FLAG 0 (0-99); FRAGMENT RBC FLAG 0 (0-99); HEMATOCRIT 46.2 % (40.0-51.0); HEMOGLOBIN 16.2 g/dL (13.7-17.5); LEFT SHIFT FLG 0 (0-99); LIPEMIA HEMOLYSIS FLAG 90 (0-99); MEAN CELL HEMOGLOBIN 30.8 pg (27.9-34.1); MEAN CELL HEMOGLOBIN CONCENTR. 35.1 g/dL (32.4-36.7); MEAN CELL VOLUME 87.8 fL (81.5-99.8); MEAN PLATELET VOLUME 12.7 fL (8.7-11.7); PLATELET CLUMPS FLAG 0 (0-99); PLATELET COUNT 168 10^3/uL (150-400); RED BLOOD CELL COUNT 5.26 10^6/uL (4.40-6.38); RED CELL DISTRIBUTION WIDTH 12.5 % (11.5-15.2)
[2017-01-19 22:34] LABS: HEMOGLOBIN A1C 11.4 % (4.0-6.0)
[2017-01-19] MEDS: ONDANSETRON 4 MG/2 ML VIAL IVP PRN (22:42)
[2017-01-19 23:21] LABS: ANION GAP 15 mEq/L (8-16); CALCIUM 9.3 mg/dL (8.5-10.4); CARBON DIOXIDE 19 mEq/l (22-31); CHLORIDE 105 mEq/L (97-110); CREATININE 0.6 mg/dL (0.7-1.3); GLOMERULAR FILTRATION RATE > 60; GLUCOSE 222 mg/dL (70-100); POTASSIUM 3.8 mEq/L (3.5-5.2); SODIUM 139 mEq/L (134-144)
[2017-01-20] MEDS: PROMETHAZINE HCL 25 MG/ML INJ IVP PRN (02:50)
[2017-01-20] MEDS: HYDROmorphONE/DILAUDID 1 MG/ML INJ IVP PRN ×2 (02:57→06:46)
[2017-01-20 04:20] LABS: % IMMATURE GRANULYOCYTES 0.5 % (0.0-1.1); ABSOLUTE IMMATURE GRANULOCYTES 0.07 10^3/uL (0.00-0.10); ADD DIFF? NO; ADD MORPH? NO; ADD SCAN? NO; ATYPICAL LYMPHOCYTE FLAG 0 (0-99); FRAGMENT RBC FLAG 0 (0-99); HEMATOCRIT 41.8 % (40.0-51.0); HEMOGLOBIN 14.3 g/dL (13.7-17.5); LEFT SHIFT FLG 0 (0-99); LIPEMIA HEMOLYSIS FLAG 90 (0-99); MEAN CELL HEMOGLOBIN 30.8 pg (27.9-34.1); MEAN CELL HEMOGLOBIN CONCENTR. 34.2 g/dL (32.4-36.7); MEAN CELL VOLUME 90.1 fL (81.5-99.8); PLATELET CLUMPS FLAG 0 (0-99); PLATELET COUNT 150 10^3/uL (150-400); RED BLOOD CELL COUNT 4.64 10^6/uL (4.40-6.38); RED CELL DISTRIBUTION WIDTH 12.6 % (11.5-15.2)
[2017-01-20 04:28] LABS: ANION GAP 13 mEq/L (8-16); CALCIUM 8.5 mg/dL (8.5-10.4); CARBON DIOXIDE 18 mEq/l (22-31); CHLORIDE 108 mEq/L (97-110); CREATININE 0.7 mg/dL (0.7-1.3); GLOMERULAR FILTRATION RATE > 60; GLUCOSE 219 mg/dL (70-100); POTASSIUM 4.2 mEq/L (3.5-5.2); SODIUM 139 mEq/L (134-144)
[2017-01-20] MEDS: ONDANSETRON 4 MG/2 ML VIAL IVP PRN (05:48)
[2017-01-20] MEDS: INSULIN GLARGINE 100 UNITS/ML SYRINGE SC SCH (08:08)
[2017-01-20] MEDS: INSULIN LISPRO 100 UNIT/ML SC SCH ×3 (08:09→17:00)
[2017-01-20] MEDS: ENOXAPARIN 40 MG/0.4 ML SYR SC SCH (08:10)
--- NOTE | 2017-01-20 09:40 | HOSPPROG ---
Hospitalist Progress Note Assessment/Plan: 51 yo M w uncontrolled dm, suspected gastroparesis here w n/v/abd pain as well as anion gap metabolic acidosis AGMA: not dka gap normalized, acidosis remains suspect starvation ketosis that has improved abd pain: suspected gastroparesis per him, he has been diagonosed w this previously 1. blood sugar control 2. antiemetics 3. hold motility agents for now given improvement overnight pain: prn oxycodone dc IV dilaudid DM: uncontrolled continue lantus/lispro dietary consult proph: lmwh dispo: inpatient home when able to take adequate PO Subjective: much more alert. able to eat a bit Objective: Vital Signs Temp Pulse Resp BP Pulse Ox 36.6 C 108 H 18 95/73 L 94 01/20/17 08:34 01/20/17 08:34 01/20/17 08:34 01/20/17 08:34 01/20/17 08:34 Laboratory Results 01/20/17 03:45 01/20/17 03:45 01/19/17 01/20/17 01/21/17 05:59 05:59 05:59 Intake Total 4480 Output Total 2175 Balance 2305 - Physical Exam Constitutional: no apparent distress, appears nourished Eyes: PERRL, anicteric sclera Ears, Nose, Mouth, Throat: moist mucous membranes, hearing normal Cardiovascular: regular rate and rhythym, no murmur, rub, or gallop Respiratory: no respiratory distress, no rales or rhonchi Gastrointestinal: normoactive bowel sounds, soft, non-tender abdomen, No guarding, No rebound Genitourinary: No fernandez in urethra Skin: warm, normal color Musculoskeletal: full muscle strength, no muscle tenderness Neurologic: AAOx3 ICD10 Worksheet Patient Problems: Problems Problem Status Onset Cyclic vomiting syndrome Acute Diabetes Acute Intractable vomiting Acute
[2017-01-20] MEDS: oxyCODONE IR 5 MG TAB PO PRN ×4 (10:16→22:18)
[2017-01-20] MEDS: ONDANSETRON DISINTEGRATING 4 MG TAB PO PRN ×4 (10:17→22:18)
--- NOTE | 2017-01-20 10:25 | ASMTCASEMG ---
Living Arrangements What is your living Answers: With Spouse arrangement? Who do you live with? Type Of Residence What kind of residence do Answers: House you live in? Discharge Plan Comments Coordination Status Comments Notes: Chart reviewed and discussed POC w/ ANGEL Us, pt is a 51 y/o man admitted w/ intractable vomiting and hyperglycemia. Pt has moved here from [place] recently. Pt will most likely discharge independent when medically stable w/ supportive . No therapies ordered at this time. CM available for changes. Date Signed: 01/20/2017 10:24 AM Electronically Signed By:WILNER Smith
[2017-01-20] MEDS: PROMETHAZINE HCL 25 MG TAB PO PRN (19:41)
[2017-01-21] MEDS: PROMETHAZINE HCL 25 MG TAB PO PRN (02:32)
[2017-01-21] MEDS: oxyCODONE IR 5 MG TAB PO PRN ×2 (02:32→06:35)
[2017-01-21 05:41] VITALS: TEMP 98.2
[2017-01-21 07:12] VITALS: BP 146/86; PULSE 87; RESP 18; O2SAT 96
[2017-01-21] MEDS: INSULIN LISPRO 100 UNIT/ML SC SCH (07:55)
[2017-01-21] MEDS: INSULIN GLARGINE 100 UNITS/ML SYRINGE SC SCH (07:58)
[2017-01-21] MEDS: ENOXAPARIN 40 MG/0.4 ML SYR SC SCH (07:58)
--- NOTE | 2017-01-21 09:26 | HOSPPROG ---
Hospitalist Progress Note Assessment/Plan: 51 yo M w uncontrolled dm, suspected gastroparesis here w n/v/abd pain as well as anion gap metabolic acidosis AGMA: not dka gap normalized, acidosis remains suspect starvation ketosis that has improved abd pain: suspected gastroparesis per him, he has been diagonosed w this previously 1. blood sugar control 2. antiemetics 3. hold motility agents for now given improvement overnight pain: prn oxycodone dc IV dilaudid DM: uncontrolled continue lantus/lispro dietary consult proph: lmwh dispo: home today > 30 minutes Subjective: hungry. ready for dc Objective: Vital Signs Temp Pulse Resp BP Pulse Ox 36.8 C 87 18 146/86 H 96 01/21/17 07:08 01/21/17 07:08 01/21/17 07:08 01/21/17 07:08 01/21/17 07:08 Laboratory Results 01/20/17 03:45 01/20/17 03:45 01/20/17 01/21/17 01/22/17 05:59 05:59 05:59 Intake Total 4480 700 Output Total 2175 Balance 2305 700 - Physical Exam Constitutional: no apparent distress, appears nourished Eyes: PERRL, anicteric sclera Ears, Nose, Mouth, Throat: moist mucous membranes, hearing normal Cardiovascular: regular rate and rhythym, no murmur, rub, or gallop Respiratory: no respiratory distress, no rales or rhonchi Gastrointestinal: normoactive bowel sounds, soft, non-tender abdomen Genitourinary: No fernandez in urethra Skin: warm, normal color Musculoskeletal: no muscle tenderness Neurologic: AAOx3 ICD10 Worksheet Patient Problems: Problems Problem Status Onset Cyclic vomiting syndrome Acute Dehydration Acute Diabetes Acute Intractable vomiting Acute
--- NOTE | 2017-01-21 13:05 | GDS ---
[f rep st] DISCHARGE SUMMARY Please see admission history and physical by Dr. Kevin Wilson. DISCHARGE DIAGNOSES: 1. Suspected diabetic gastroparesis. 2. Uncontrolled diabetes. 3. Anion gap metabolic acidosis, now resolved. HOSPITAL COURSE: The patient presented with abdominal pain, anion gap acidosis. It was not felt to be DKA despite his hyperglycemia. He resolved with subcutaneous insulin. He received Phenergan. He has been given the diagnosis of gastroparesis, and I suspect this is the answer. He did not have a gastric emptying study here. Given the patient's A1c of 11, I increased his insulin Novolin 70/30 of 10 units b.i.d. to 12 units b .i.d. I encouraged him to follow up with a primary care physician. /[id number]/MODL
--- NOTE | 2017-01-21 16:18 | ASDISCHSUM ---
Discharge Information Plan Status:Home with No Needs Medically Cleared to Leave:01/21/2017 Discharge Date:01/21/2017 11:35 AM CM D/C Disposition: ADT D/C Disposition:Home, Routine, Self-Care Projected Discharge Date:01/21/2017 12:00 AM Transportation at D/C: Discharge Delay Reason: Follow-Up Date:01/21/2017 12:00 AM Discharge Slot: Final Diagnosis: Placement Information Patient Contact Information Contact Name:BELLE Relationship: Address:[address] [address] Work Phone: City:[place] Alternate Phone: [facility]/Zip Code:[place] [address] Email: Financial Information Financial Class: Primary Plan Desc:MEDICARE INPATIENT Primary Plan Number:[id number] Secondary Plan Desc: Secondary Plan Number: Assessment Information [facility] Initial CM Assessment Living Arrangements What is your living Answers: With Spouse arrangement? Who do you live with? Type Of Residence What kind of residence do Answers: House you live in? Discharge Plan Comments Coordination Status Comments Notes: Chart reviewed and discussed POC w/ ANGEL Us, pt is a 51 y/o man admitted w/ intractable vomiting and hyperglycemia. Pt has moved here from [place] recently. Pt will most likely discharge independent when medically stable w/ supportive . No therapies ordered at this time. CM available for changes. Date Signed: 01/20/2017 10:24 AM Electronically Signed By:WILNER Smith Intervention Information Intervention Type:*IM-Signed Date of Service:01/21/2017 04:10 PM Patient Type:Inpatient Staff Member:Destinee Schwartz Hours: Discipline: Severity: Comment:
== END 2017-01-21 11:35 | disposition home or self-care (01) | DRG 74 ==
LOC: F2W 16:02
PROVIDERS: ADMIT Internal Medicine; ATTEND Internal Medicine
PROC: 02HV33Z Insertion of Infusion Device into Superior Vena Cava, Percutaneous Approach (ICD-10-PCS; principal; 2017-01-19)
DX: E11.43 Type 2 diabetes mellitus with diabetic autonomic (poly)neuropathy (principal); E11.65 Type 2 diabetes mellitus with hyperglycemia; F12.90 Cannabis use, unspecified, uncomplicated; E87.2 Acidosis; Z79.4 Long term (current) use of insulin
CPT/HCPCS: 84681-90; 96374; C1751; J1170; J1650; J1815; J2060; J2405; J2550; J2765

== ENCOUNTER 2017-03-05 08:44 | Inpatient (IN) | payer OTHER ==
[2017-03-05] MEDS: ONDANSETRON DISINTEGRATING 4 MG TAB PO ONE ×2 (08:57→11:44)
[2017-03-05] MEDS ORDERED: PROMETHAZINE HCL 25 MG/ML INJ IVP ONE (09:14)
[2017-03-05] MEDS ORDERED: HYDROmorphONE/DILAUDID 1 MG/ML INJ IVP ONE (09:14)
--- NOTE | 2017-03-05 09:16 | EDPHY ---
H & P Stated Complaint: n/v/d diaphoresis. symptoms 24 hrs. iddm gastro paresis Time Seen by Provider: 03/05/17 09:05 HPI/ROS: CHIEF COMPLAINT: Vomiting HISTORY OF PRESENT ILLNESS: Patient is a 51-year-old man with a history of poorly controlled diabetes and gastroparesis admitted 2 months ago for the same. He is complaining of 2 days abdominal cramping and vomiting. He has been unable to take his insulin. He has done an able to eat or drink. He has not had a fever. No chest pain or shortness of breath. REVIEW OF SYSTEMS: Constitutional: denies: chills, fever, recent illness, recent injury EENTM: denies: blurred vision, double vision, nose congestion Respiratory: denies: cough, shortness of breath Cardiac: denies: chest pain, irregular heart rate, lightheadedness, palpitations Gastrointestinal/Abdominal: See HPI Genitourinary: denies: dysuria, frequency, hematuria, pain Musculoskeletal: denies: joint pain, muscle pain Skin: denies: lesions, rash, jaundice, bruising Neurological: denies: headache, numbness, paresthesia, tingling, dizziness, weakness Hematologic/Lymphatic: denies: blood clots, easy bleeding, easy bruising Immunologic/allergic: denies: HIV/AIDS, transplant EXAM: GENERAL: Moderate distress HEAD: Atraumatic, normocephalic. EYES: Pupils equal round and reactive to light, extraocular movements intact, sclera anicteric, conjunctiva are normal. ENT: TMs normal, nares patent, oropharynx clear without exudates. Moist mucous membranes. NECK: Normal range of motion, supple without lymphadenopathy or JVD. LUNGS: Breath sounds clear to auscultation bilaterally and equal. No wheezes rales or rhonchi. HEART: Regular rate and rhythm without murmurs, rubs or gallops. ABDOMEN: Soft, mild diffuse tenderness, normoactive bowel sounds. No guarding , no rebound. No masses appreciated. BACK: No CVA tenderness, no spinal tenderness, step-offs or deformities EXTREMITIES: Normal range of motion, no pitting or edema. No clubbing or cyanosis. NEUROLOGICAL: Cranial nerves II through XII grossly intact. Normal speech, normal gait. 5/5 strength, normal movement in all extremities, normal sensation PSYCH: Normal mood, normal affect. SKIN: Warm, dry, normal turgor, no visible rashes or lesions. Source: Patient Exam Limitations: No limitations - Personal History Current Tetanus/Diphtheria Vaccine: Unsure Current Tetanus Diphtheria and Acellular Pertussis (TDAP): Unsure - Medical/Surgical History Hx Asthma: No Hx Chronic Respiratory Disease: No Hx Diabetes: Yes Hx Cardiac Disease: No Hx Renal Disease: No Hx Cirrhosis: No Hx Alcoholism: No Hx HIV/AIDS: No Hx Splenectomy or Spleen Trauma: No Other PMH: GASTROPARISIS r/t dm 2 poorly controlled, periph neuropathy - Family History Significant Family History: No pertinent family hx - Social History Smoking Status: Never smoked Alcohol Use: Sober Drug Use: None Constitutional: Initial Vital Signs Temperature (C) 36.9 C 03/05/17 08:54 Heart Rate 90 03/05/17 08:54 Respiratory Rate 22 H 03/05/17 08:54 Blood Pressure 141/90 H 03/05/17 08:54 O2 Sat (%) 99 03/05/17 08:54 O2 Delivery Mode Room Air Allergies/Adverse Reactions: penicillin G Allergy (Verified 03/05/17 08:56) Unknown Home Medications: Medication Instructions Recorded Insulin 70/30 Human [Novolin 70/30 7 unit SC DAILY@03/05/17 (*)] Insulin NPH Hum/Reg Insulin Hm 12 unit SQ DAILY@07 03/05/17 [Novolin 70-30 100 Unit/ml Vial] Ondansetron Odt [Zofran Odt 4 mg 4 mg PO Q4HRS PRN #10 tab 03/06/17 (*)] Promethazine HCl [Phenergan 25mg 25 mg PO Q6 PRN #5 tab 03/06/17 (*)] Medical Decision Making ED Course/Re-evaluation: 9:50 a.m. we discussed the patient's lab results. He is feeling much better with Phenergan and fluids. I will add insulin. He has an anion gap of 20. He likely has mild DKA in the setting of gastroparesis. The patient states that he usually takes him 3 days minimum to recover and he is requesting hospitalization. I have paged the hospitalist service. 10:00 a.m. I discussed the case with Dr. Mani Huynh who recommends admission to the ICU an insulin drip. Differential Diagnosis: Partial list of the Differential diagnosis considered include but were not limited to; gastroparesis, DKA, dehydration, hyponatremia and although unlikely based on the history and physical exam, I also considered obstruction, ischemia, volvulus, appendicitis. Critical Care Time: Critical care time spent by Dr. Claire raines exclusive with this patient was 35 minutes, exclusive of the PA time exclusive of procedures. The organ system that was at risk was endocrine and I gave IV fluids, medications, consultation and admission to prevent worsening of the patient's condition - Data Points Laboratory Results: Laboratory Results 03/05/17 09:15 03/05/17 09:15 Medications Given: Discontinued Medications Enoxaparin Sodium (Lovenox) 40 mg SC DAILY YAYO Stop: 09/02/17 08:59 Last Admin: 03/06/17 08:22 Dose: 40 mg Hydromorphone HCl (Dilaudid) 1 mg IVP EDNOW ONE Stop: 03/05/17 09:15 Last Admin: 03/05/17 09:28 Dose: 1 mg Hydromorphone/Sodium Chloride (Hydromorphone) 0.2 - 0.4 mg IVP Q4 PRN PRN Reason: Pain, Severe Unable to Take PO Stop: 03/15/17 11:51 Last Admin: 03/06/17 08:01 Dose: 0.4 mg Sodium Chloride (Ns) 1,000 mls @ 0 mls/hr IV ONCE ONE; Wide Open PRN Reason: Protocol Stop: 03/05/17 09:11 Last Admin: 03/05/17 10:33 Dose: 1,000 mls Sodium Chloride (Ns) 1,000 mls @ 0 mls/hr IV ONCE ONE; Wide Open PRN Reason: Protocol Stop: 03/05/17 09:52 Last Admin: 03/05/17 11:43 Dose: Not Given Insulin Human Regular 100 unit / Miscellaneous Medication 1 ea/ Sodium Chloride 101 mls @ 6 mls/hr IV EDNOW ONE PRN Reason: Protocol Stop: 03/06/17 02:57 Last Admin: 03/05/17 11:44 Dose: Not Given Sodium Chloride (Ns) 1,000 mls @ 125 mls/hr IV CONT YAYO Stop: 09/01/17 11:44 Last Admin: 03/06/17 10:32 Dose: 1,000 mls Erythromycin Lactobionate 250 (mg/ Sodium Chloride) 105 mls @ 105 mls/hr IV Q6HRS [facility] PRN Reason: Protocol Stop: 04/04/17 11:59 Last Admin: 03/06/17 11:49 Dose: 105 mls Insulin Human Isoph/Insulin Regular (Humulin 70/30 Syringe) 12 units SC DAILY@ 07 [facility] Stop: 09/02/17 06:59 Last Admin: 03/06/17 08:22 Dose: 12 units Insulin Human Isoph/Insulin Regular (Humulin 70/30 Syringe) 7 units SC DAILY@ 19 [facility] Stop: 09/01/17 18:59 Last Admin: 03/05/17 19:23 Dose: 7 units Insulin Human Lispro (Humalog Lispro) 0 unit SC TIDMEAL [facility] PRN Reason: Protocol Stop: 09/01/17 11:59 Last Admin: 03/06/17 11:58 Dose: Not Given Insulin Human NPH (Humulin N Syringe) 8 units SC ONCE ONE Stop: 03/05/17 11:41 Last Admin: 03/05/17 12:16 Dose: 8 units Insulin Human Regular (Humulin R) 10 unit IVP EDNOW ONE Stop: 03/05/17 09:52 Last Admin: 03/05/17 10:25 Dose: 10 units Metoclopramide HCl (Reglan Injection) 10 mg IVP Q6HRS [facility] Stop: 09/01/17 11:59 Last Admin: 03/06/17 11:49 Dose: 10 mg Ondansetron HCl (Zofran Odt) 4 mg PO EDNOW ONE Stop: 03/05/17 08:51 Last Admin: 03/05/17 11:44 Dose: Not Given Ondansetron HCl (Zofran) 4 mg IVP Q4HRS PRN PRN Reason: Nausea/Vomiting, Can't Take PO Stop: 09/01/17 11:39 Last Admin: 03/06/17 08:01 Dose: 4 mg Ondansetron HCl (Zofran Odt) 4 mg PO Q4HRS PRN PRN Reason: Nausea/Vomiting, Use 1st Stop: 09/01/17 11:39 Last Admin: 03/06/17 00:36 Dose: 4 mg Promethazine HCl (Phenergan) 25 mg IVP EDNOW ONE Stop: 03/05/17 09:15 Last Admin: 03/05/17 09:27 Dose: 25 mg Promethazine HCl (Phenergan) 6.25 - 12.5 mg IVP Q6HRS PRN PRN Reason: Nausea/Vomiting, Use 2nd Stop: 09/01/17 11:39 Last Admin: 03/06/17 08:28 Dose: 12.5 mg Departure - Departure Disposition: [facility] Acute Clinical Impression: Gastroparesis, Dehydration, Hyperglycemia, Acidosis Condition: Critical
[2017-03-05 09:27] LABS: % IMMATURE GRANULYOCYTES 0.6 % (0.0-1.1); ABSOLUTE IMMATURE GRANULOCYTES 0.06 10^3/uL (0.00-0.10); ADD DIFF? NO; ADD MORPH? NO; ADD SCAN? NO; ATYPICAL LYMPHOCYTE FLAG 0 (0-99); FRAGMENT RBC FLAG 0 (0-99); HEMATOCRIT 48.2 % (40.0-51.0); LEFT SHIFT FLG 0 (0-99); LIPEMIA HEMOLYSIS FLAG 90 (0-99); MEAN CELL HEMOGLOBIN CONCENTR. 37.3 g/dL (32.4-36.7); MEAN CELL VOLUME 85.6 fL (81.5-99.8); MEAN PLATELET VOLUME 11.9 fL (8.7-11.7); PLATELET CLUMPS FLAG 0 (0-99); PLATELET COUNT 197 10^3/uL (150-400); RED BLOOD CELL COUNT 5.63 10^6/uL (4.40-6.38); RED CELL DISTRIBUTION WIDTH 12.5 % (11.5-15.2)
[2017-03-05] MEDS: NS 1,000 ML IV ONE ×2 (09:30→10:33)
[2017-03-05 09:42] LABS: ANION GAP 20 mEq/L (8-16); CALCIUM 9.9 mg/dL (8.5-10.4); CARBON DIOXIDE 21 mEq/l (22-31); CHLORIDE 102 mEq/L (97-110); CREATININE 0.7 mg/dL (0.7-1.3); GLOMERULAR FILTRATION RATE > 60; GLUCOSE 367 mg/dL (70-100); MAGNESIUM 1.7 mg/dL (1.6-2.3); POTASSIUM 3.8 mEq/L (3.5-5.2); SODIUM 143 mEq/L (134-144)
[2017-03-05] MEDS ORDERED: INSULIN REGULAR HUMAN 100 UNIT/ML IVP ONE (09:51)
[2017-03-05] MEDS ORDERED: NS 1,000 ML IV ONE (09:51)
[2017-03-05] MEDS ORDERED: INSULIN REGULAR HUMAN 100 UNIT, COSIGN. REQUIRED 1 EA in NS 100 ML IV ONE (10:08)
[2017-03-05] MEDS ORDERED: INSULIN NPH HUMAN 100 UNITS/ML SYRINGE SC ONE (11:40)
[2017-03-05] MEDS ORDERED: ONDANSETRON DISINTEGRATING 4 MG TAB PO PRN (11:40)
[2017-03-05] MEDS ORDERED: HYDROmorphONE/DILAUDID 1 MG/ML INJ IVP PRN (11:40)
[2017-03-05] MEDS ORDERED: D50W 25 GM/50 ML SYR IVP PRN (11:47)
[2017-03-05 11:55] LABS: CALCULATED OXYGEN SATURATION 89 % (92-95); O2 CONCENTRATIION 21 % (0-100)
[2017-03-05] MEDS: INSULIN LISPRO 100 UNIT/ML SC SCH ×2 (12:15→17:37)
[2017-03-05] MEDS: METOCLOPRAMIDE 10 MG/2 ML VIAL IVP SCH ×3 (12:16→23:31)
--- NOTE | 2017-03-05 12:38 | GHP ---
[f rep st] HISTORY AND PHYSICAL DATE OF ADMISSION: 03/05/2017 HISTORY OF PRESENT ILLNESS: The patient is a 51-year-old gentleman with a history of poorly-controll ed diabetes and suspected gastroparesis who presents with nausea and vomiting. He takes insulin inte rmittently. He notes that he has not taken insulin in a couple days. He confirms type [address]us. He has had nausea and vomiting for a couple of days. It sounds like he has moderately heavy m arijuana use which he takes when he has abdominal pain, which he has now, although he notes he has be en tapering. He also takes a number of hot showers per day. It sounds like he has been cutting down his doses. He was admitted here to this hospital about a month ago with similar presentations as well as 2 times in November. He has recently relocated here from [place]. During that last hospitalization, after a day of IV fluids without insulin drip, the patient turned around and was doing quite well. The patient denies fever, chills, or diarrhea. His last bowel movement was this morning. He is havi ng nausea and vomiting as discussed earlier. He maybe has some urinary symptoms such as urgency and frequency. He has been checking his sugars at home. They were in the 300s. He does not have cough or shortness of breath. He has no history of coronary disease. He does not have lower extremity gio a or rash on his skin. REVIEW OF SYSTEMS: Complete 10-point review of systems conducted and negative except as noted in the HPI. PAST MEDICAL HISTORY: 1. Type 2 diabetes. 2. Peripheral neuropathy. 3. Gastroparesis. 4. Vision loss. ALLERGIES: Penicillin. MEDICATIONS: NPH insulin, esomeprazole, lorazepam, and ondansetron. SOCIAL HISTORY: No alcohol. Daily marijuana. From [place]. Now Living here on disability. FAMILY HISTORY: Reviewed and unremarkable. PHYSICAL EXAMINATION: VITAL SIGNS: Temp 37, blood pressure 141/90, pulse 90, breathing 22 times a m inute, 99% on room air. GENERAL: Uncomfortable. Curled up in a ball. Sclerae anicteric. Orophary nx clear. Mucous membranes moist. NECK: Supple. No lymphadenopathy or JVD. LUNGS: Clear to ausc ultation bilaterally. HEART: S1, S2. Not tachycardic. ABDOMEN: Soft. It is diffusely tender. T here is no rebound or guarding. EXTREMITIES: Lower extremities are without edema. Calves nontender . SKIN: Without rash. NEUROLOGIC: Nonfocal. LABS: ABG performed just now shows a pH 7.34 with a pCO2 of 33, PO2 of 58, bicarb of 18. On er 2016, C-peptide 2.0, which is a normal value. His white count is 9.77, hematocrit 48, platele ts are 197,000, sodium 143, potassium 3.8, chloride 102, bicarb 21, BUN 14, creatinine 0.7. His anio n gap is elevated at 20. His glucose is 367. Calcium, phosphorus, and magnesium are normal. COMMENT: I discussed the case with Dr. Harpreet Rangel. IMAGING: There is no imaging today. ASSESSMENT/PLAN: 51-year-old gentle with type 2 diabetes presents with nausea, vomiting, and anion g ap acidosis. 1. Anion gap acidosis. This is not diabetic ketoacidosis. The patient has type 2 diabetes, as evid enced by the abstention from insulin and the absence of diabetic ketoacidosis and history of a normal C-peptide, which is consistent with endogenous insulin production. Therefore, we will avoid insulin drip. I will manage him with subcutaneous insulin. 2. Gastroparesis. I suspect this patient has diabetic gastroparesis, although also included in the differential is cannabis hyperemesis syndrome. The patient states he presents to this hospital with some regularity, so will order a gastric emptying study to verify the diagnosis. For now, will start him on scheduled Reglan and some scheduled erythromycin. 3. Nausea and vomiting as above. I suspect will use intravenous Phenergan and intravenous Zofran. 4. Question cannabis hyperemesis syndrome. It certainly seems like that may be what is going on, al though diabetic gastroparesis is more common. Will see what his gastric emptying study shows. 5. Prophylaxis. Low molecular weight heparin indicated. 6. Anion gap acidosis. This is ketosis not diabetic ketoacidosis. /[id number]/MODL
--- NOTE | 2017-03-05 13:11 | PDMN ---
Medical Necessity Medical necessity: C/M review: est. > 2 MN LOS for eval and TX of acute anion gap acidosis, gastroparesis - suspect diabetic gastroparesis, nausea and vomiting, question cannabis hyperemesis syndrome requiring planned 03/07/2017 gastric emptying nuclear medicine study ongoing IV fluids, IV Erythromycin, comorbid poorly controlled type 2 diabetes, peripheral neuropathy, vision loss, hx gastroparesis per H/P.
[2017-03-05] MEDS: ERYTHROMYCIN LACTOBIONATE 250 MG in NS 100 ML IV SCH ×3 (13:46→23:31)
[2017-03-05] MEDS: HYDROmorphone HCL/NS/PF 0.4 MG/2 ML SYR IVP PRN ×2 (15:29→19:30)
[2017-03-05] MEDS: PROMETHAZINE HCL 25 MG/ML INJ IVP PRN (17:37)
[2017-03-05 17:58] LABS: ANION GAP 19 mEq/L (8-16); CALCIUM 8.9 mg/dL (8.5-10.4); CARBON DIOXIDE 22 mEq/l (22-31); CHLORIDE 106 mEq/L (97-110); CREATININE 0.5 mg/dL (0.7-1.3); GLOMERULAR FILTRATION RATE > 60; GLUCOSE 230 mg/dL (70-100); POTASSIUM 3.9 mEq/L (3.5-5.2); SODIUM 147 mEq/L (134-144)
[2017-03-05] MEDS ORDERED: INSULIN 70/30 HUMAN 100 UNITS/ML SYR SC SCH (19:00)
[2017-03-05] MEDS: ONDANSETRON 4 MG/2 ML VIAL IVP PRN (19:23)
[2017-03-05] MEDS: NS 1,000 ML IV SCH (20:23)
[2017-03-06] MEDS: HYDROmorphone HCL/NS/PF 0.4 MG/2 ML SYR IVP PRN ×3 (00:36→08:01)
[2017-03-06] MEDS: ONDANSETRON 4 MG/2 ML VIAL IVP PRN ×2 (01:46→08:01)
[2017-03-06 03:56] VITALS: PULSE 68; O2SAT 98
[2017-03-06] MEDS: METOCLOPRAMIDE 10 MG/2 ML VIAL IVP SCH ×2 (05:24→11:49)
[2017-03-06] MEDS: ERYTHROMYCIN LACTOBIONATE 250 MG in NS 100 ML IV SCH ×2 (05:24→11:49)
[2017-03-06 05:43] LABS: ANION GAP 17 mEq/L (8-16); CALCIUM 9.1 mg/dL (8.5-10.4); CARBON DIOXIDE 14 mEq/l (22-31); CHLORIDE 104 mEq/L (97-110); CREATININE 0.7 mg/dL (0.7-1.3); GLOMERULAR FILTRATION RATE > 60; GLUCOSE 178 mg/dL (70-100); POTASSIUM 3.9 mEq/L (3.5-5.2); SODIUM 135 mEq/L (134-144)
[2017-03-06] MEDS ORDERED: INSULIN 70/30 HUMAN 100 UNITS/ML SYR SC SCH (07:00)
[2017-03-06 08:18] VITALS: RESP 14
[2017-03-06] MEDS: INSULIN LISPRO 100 UNIT/ML SC SCH ×2 (08:22→11:58)
[2017-03-06] MEDS: PROMETHAZINE HCL 25 MG/ML INJ IVP PRN (08:28)
[2017-03-06] MEDS ORDERED: ENOXAPARIN 40 MG/0.4 ML SYR SC SCH (09:00)
[2017-03-06] MEDS: NS 1,000 ML IV SCH (10:32)
[2017-03-06 11:23] LABS: COLOR YELLOW; LEUKOCYTE ESTERASE,URINE NEGATIVE (NEGATIVE); NITRITE,URINE NEGATIVE (NEGATIVE)
[2017-03-06 11:29] LABS: MUCUS TRACE /lpf (NONE-1+); RBC,URINE NONE SEEN /hpf (0-3)
[2017-03-06 11:44] VITALS: BP 130/55; TEMP 98.5
--- NOTE | 2017-03-06 12:22 | GDS ---
[f rep st] DISCHARGE SUMMARY DISCHARGE DIAGNOSES: 1. Nausea vomiting due to suspected diabetic gastroparesis. 2. Improving anion gap metabolic acidosis. CONSULTANTS: None. HOSPITAL COURSE AND STAY BY PROBLEM: Nausea and vomiting: The patient was admitted to the hospital where he received some IV erythromycin and Reglan. On hospital day #1, the patient tells me he feels much better and is able to tolerate p.o. I offered him further hospitalization however he tells me he is able to the eat, and thinks he can control symptoms outside of the hospital by eating small david quent meals. He had been on Reglan in the past but was stopped due to some tardive dyskinesias. PHYSICAL EXAM: VITAL SIGNS: On day of discharge, blood pressure 138/55, pulse of 68, respiratory ra te 14, O2 saturation 98% on room air. GENERAL: No acute distress. HEART: S1, S2. LUNGS: Clear. ABDOMEN: Soft, nontender, nondistended. No guarding or rebound tenderness. Normoactive bowel soun ds. LABS AND STUDIES DONE THIS HOSPITAL STAY: None. DISCHARGE MEDICATIONS: Please refer to discharge medication reconciliation [facility] [place] [facility] for details. Be low is a preliminary list. NEW MEDICATIONS ON HOSPITAL DISCHARGE: 1. Zofran 4 mg ODT p.o. q.4 hours p.r.n. nausea and vomiting. 2. Phenergan 25 mg p.o. q.6 hours p.r.n. nausea and vomiting. DISCHARGE INSTRUCTIONS: The patient was discharged from the hospital where he was urged to establish care with a primary care provider. He did recently move from [place]. [facility] if he is unable to tolerate anything by mouth. /[id number]/MODL
--- NOTE | 2017-03-06 14:43 | ASDISCHSUM ---
Discharge Information Plan Status:Home with No Needs Medically Cleared to Leave: Discharge Date:03/06/2017 01:50 PM CM D/C Disposition:Home, Routine, Self-Care ADT D/C Disposition:Home, Routine, Self-Care Projected Discharge Date:03/06/2017 01:50 PM Transportation at D/C: Discharge Delay Reason: Follow-Up Date:03/06/2017 01:50 PM Discharge Slot: Final Diagnosis: Placement Information Patient Contact Information Contact Name:BELLE Relationship: Address:[address] [address] Work Phone: City:[place] Alternate Phone: [facility]/Zip Code:[place] [address] Email: Financial Information Financial Class:[facility] Primary Plan Desc:MEDICARE OUTPATIENT Primary Plan Number:[id number] Secondary Plan Desc: Secondary Plan Number: Assessment Information Intervention Information
== END 2017-03-06 13:50 | disposition home or self-care (01) | DRG 74 ==
LOC: F2N 10:48 → OBSVTOIN 11:40 → F3E 19:59
PROVIDERS: ADMIT Family Medicine; ATTEND Internal Medicine
DX: E11.43 Type 2 diabetes mellitus with diabetic autonomic (poly)neuropathy (principal); E87.2 Acidosis; H54.7 Unspecified visual loss; Z79.4 Long term (current) use of insulin
CPT/HCPCS: 82947-QW; 96374; J1170; J1364; J1650; J1815; J2405; J2550; J2765

== ENCOUNTER 2017-07-03 07:38 | Inpatient (IN) | payer OTHER ==
[2017-07-03] MEDS ORDERED: ONDANSETRON 4 MG/2 ML VIAL IVP ONE (07:51)
[2017-07-03] MEDS ORDERED: NS 1,000 ML IV ONE ×2 (07:51→09:14)
[2017-07-03] MEDS ORDERED: LORazepam 2 MG/ML INJ IVP ONE (08:17)
[2017-07-03] MEDS ORDERED: HALOPERIDOL LACT 5 MG/ML INJ ONE (08:21)
[2017-07-03] MEDS ORDERED: HALOPERIDOL LACT 5 MG/ML INJ IVP ONE (08:21)
[2017-07-03 08:23] LABS: PLATELET COUNT 210 10^3/uL (150-400)
--- NOTE | 2017-07-03 08:24 | EDPHY ---
H & P Smoking Status: Never smoked Time Seen by Provider: 07/03/17 08:01 HPI/ROS: CHIEF COMPLAINT: Abdominal pain, vomiting, diarrhea, abdominal pain HISTORY OF PRESENT ILLNESS: 51-year-old male presents to the emergency department by private vehicle with multiple episodes of vomiting and diarrhea since yesterday. The patient has a history of gastroparesis. He states that he has these episodes "once a month". He smokes marijuana heavily. He has had 6 episodes of watery diarrhea. No blood. No hematemesis. No fevers or chills. No back pain. No chest pain or difficulty breathing. No headache. Patient is also type 2 diabetic and is supposed to be taking insulin although his states that he has not been taking this for months. The patient was admitted to the hospital February 2017 with similar symptoms including DKA. REVIEW OF SYSTEMS: Constitutional: No fever, no chills. Eyes: No double or blurry vision. ENT: No sore throat. Respiratory: No cough, no shortness of breath. Cardiac: No chest pain. Gastrointestinal: Abdominal pain, vomiting, diarrhea Genitourinary: No dysuria. Musculoskeletal: No neck or back pain. Skin: No rashes. Neurological: No headache. (Rosina Del Real) Past Medical/Surgical History: Gastroparesis, type 2 diabetic on insulin noncompliant (Rosina Del Real) Social History: , recently moved [place] (Rosina Del Real) Physical Exam: General Appearance: Lethargic. at bedside. Afebrile. 140/82, 97% on room air. Eyes: Pupils equal and round. Extraocular motions are all intact. ENT: Mouth: Mucous membranes dry appearing Respiratory: No wheezing, rhonchi, or rales, lungs are clear to auscultation. Cardiovascular: Regular rate and rhythm. Gastrointestinal: Abdomen is soft. Diffusely tender to palpate. There is no masses, rebound or guarding noted. Neurological: Alert and oriented x 3, cranial nerves II through XII grossly intact Skin: Warm and dry, no rashes. Musculoskeletal: Nontender to palpate along the cervical, thoracic or lumbar spine. Neck is supple. Extremities: Full range of motion and no peripheral edema. Psychiatric: Patient is oriented X 3, there is no agitation. (Rosina Del Real) Constitutional: Initial Vital Signs Temperature (C) 36.5 C 07/03/17 07:44 Heart Rate 67 07/03/17 07:44 Respiratory Rate 18 07/03/17 07:44 Blood Pressure 140/82 H 07/03/17 07:44 O2 Sat (%) 97 07/03/17 07:44 O2 Delivery Mode Room Air O2 (L/minute) 2 Allergies/Adverse Reactions: penicillin G Allergy (Verified 03/05/17 08:56) Unknown Home Medications: Medication Instructions Recorded NK [No Known Home Meds] 07/03/17 Medical Decision Making ED Course/Re-evaluation: 51-year-old male with a known history of gastroparesis, type 2 diabetic noncompliant with insulin, presents with multiple episodes of vomiting and diarrhea. Clinically the patient appears very dehydrated. He received 2 L of IV normal saline. His glucose was 411. His CO2 was 17. Calculated anion gap was 20. The patient has been seen multiple times for this. He was most recently admitted in February of 2017. I did speak with Dr. Kevin Wilson, hospitalist, about this patient. He did not feel that the patient was in DKA. He recommended 20 units of subcutaneous Lantus insulin. The patient will be admitted to Dr. Kevin Wilson to the medical-surgical floor. The patient does not have an acute abdomen. I do not think imaging studies are indicated. The case was discussed with Dr. Felipe Chatman, secondary supervising physician, who did not directly evaluate the patient but agrees with treatment and plan. ( Rosina Del Real) I did not see this patient while he was in emergency department. However his care was discussed with the PA while the patient was in the department. I agree with treatment plan and management (Felipe Chatman) Differential Diagnosis: Including but not limited to hyperglycemia, dehydration, gastroparesis, noncompliant with medication, hyperemesis cannabinoid syndrome, cyclical vomiting syndrome, DKA (Rosina Del Real) - Data Points Laboratory Results: Laboratory Results 07/03/17 07:55 07/03/17 07:55 Medications Given: Sodium Chloride (Ns) 1,000 mls @ 125 mls/hr IV CONT YAYO Stop: 12/30/17 11:14 Last Admin: 07/03/17 11:35 Dose: 1,000 mls Insulin Human Lispro (Humalog Lispro) 0 unit SC TIDMEAL YAYO PRN Reason: Protocol Stop: 12/30/17 11:59 Last Admin: 07/04/17 07:55 Dose: 4 units Metoclopramide HCl (Reglan Injection) 10 mg IVP QID YAYO Stop: 12/30/17 20:59 Last Admin: 07/04/17 05:14 Dose: 10 mg Ondansetron HCl (Zofran) 4 mg IVP Q4HRS PRN PRN Reason: Nausea/Vomiting, Can't Take PO Stop: 12/30/17 11:00 Last Admin: 07/03/17 23:09 Dose: 4 mg Ondansetron HCl (Zofran Odt) 4 mg PO Q4HRS PRN PRN Reason: Nausea/Vomiting, Use 1st Stop: 12/30/17 11:00 Last Admin: 07/03/17 11:35 Dose: 4 mg Promethazine HCl (Phenergan) 6.25 - 12.5 mg IVP Q6HRS PRN PRN Reason: Nausea/Vomiting, Use 2nd Stop: 12/30/17 11:00 Last Admin: 07/04/17 01:56 Dose: 12.5 mg Discontinued Medications Haloperidol Lactate (Haldol Injection) 5 mg IVP EDNOW ONE Stop: 07/03/17 08:22 Last Admin: 07/03/17 08:34 Dose: 5 mg Haloperidol Lactate (Haldol Injection) 2.5 mg IVP ONCE ONE Stop: 07/04/17 04:54 Last Admin: 07/04/17 05:14 Dose: 2.5 mg Sodium Chloride (Ns) 1,000 mls @ 0 mls/hr IV ONCE ONE PRN Reason: Wide Open Stop: 07/03/17 07:52 Last Admin: 07/03/17 07:57 Dose: 1,000 mls Sodium Chloride (Ns) 1,000 mls @ 0 mls/hr IV ONCE ONE PRN Reason: Wide Open Stop: 07/03/17 09:15 Last Admin: 07/03/17 09:16 Dose: 1,000 mls Insulin Glargine (Lantus Syringe) 20 units SC EDNOW ONE Stop: 07/04/17 10:09 Last Admin: 07/03/17 10:53 Dose: 20 units Insulin Human Regular (Humulin R) 10 unit IVP EDNOW ONE Stop: 07/03/17 10:05 Last Admin: 07/03/17 11:12 Dose: Not Given Lorazepam (Ativan Injection) 1 mg IVP EDNOW ONE Stop: 07/03/17 08:18 Last Admin: 07/03/17 08:34 Dose: 1 mg Ondansetron HCl (Zofran) 4 mg IVP EDNOW ONE Stop: 07/03/17 07:52 Last Admin: 07/03/17 07:57 Dose: 4 mg Departure - Departure Disposition: [facility] Acute Clinical Impression: Hyperglycemia, Gastroparesis, Dehydration Diabetes Qualifiers: Diabetes mellitus type: type 2 Diabetes mellitus terminal superintendent insulin use: unspecified terminal superintendent insulin use status Diabetes mellitus complication status: with unspecified complications Qualified Code(s): E11.8 - Type 2 diabetes mellitus with unspecified complications Condition: Fair
[2017-07-03] MEDS ORDERED: INSULIN REGULAR HUMAN 100 UNIT/ML UNIT IVP ONE (10:04)
[2017-07-03] MEDS ORDERED: D50W 25 GM/50 ML SYR IVP PRN (11:00)
[2017-07-03] MEDS ORDERED: ACETAMINOPHEN 325 MG TAB PO PRN (11:01)
[2017-07-03] MEDS: ONDANSETRON DISINTEGRATING 4 MG TAB PO PRN (11:35)
[2017-07-03] MEDS: INSULIN LISPRO 100 UNIT/ML SC SCH ×2 (11:35→18:16)
[2017-07-03] MEDS: NS 1,000 ML IV SCH (11:35)
[2017-07-03] MEDS: PROMETHAZINE HCL 25 MG/ML INJ IVP PRN (13:25)
--- NOTE | 2017-07-03 15:00 | GHP ---
[f rep st] HISTORY AND PHYSICAL DATE OF ADMISSION: 07/03/2017 HISTORY OF PRESENT ILLNESS: The patient is a 51-year-old gentleman with a history of suspected diabe tic gastroparesis, poorly-controlled diabetes, who presents with nausea, vomiting, abdominal pain. Ana Paula phoenix has not taken insulin in months. When I see the patient he is somnolent as he often is in his pres entation. He has had no hematemesis, no coffee-ground emesis. No fever or chills. He was able to eat this mor jared. REVIEW OF SYSTEMS: Complete 10-point review of systems conducted, negative except as noted in the HP I. PAST MEDICAL HISTORY: 1. Uncontrolled diabetes. This is type 2 physiology and he has had a positive C-peptide in the past . 2. Peripheral neuropathy. 3. Gastroparesis. 4. Vision loss. ALLERGIES: Penicillin. HOME MEDICATIONS: At this point are none. SOCIAL HISTORY: Rare tobacco. No alcohol. FAMILY HISTORY: Reviewed and unremarkable. PHYSICAL EXAMINATION: VITAL SIGNS: Temp 36.9, blood pressure 130/55, pulse 67, breathing 14 times a minute, 97 on room air. GENERAL: No acute distress. HEENT: Sclerae anicteric. Oropharynx clear. Mucous membranes moist. NECK: Supple. No lymphadenopathy or JVD. LUNGS: Clear to auscultation bilaterally. HEART: S1, S2. ABDOMEN: Soft, nontender, nondistended. LOWER EXTREMITIES: No edema , calves are nontender. SKIN: Without rash. NEUROLOGIC: Grossly nonfocal. LABS: White count 19.7, hematocrit 50, platelets are 210,000. He frequently has an elevated white c ount upon presentation. His VBG shows a pH 7.3, with a venous bicarb of 19. He does have an elevate d lactate 2.5. Sodium is 140, potassium 4.8, chloride 103, bicarb 17, BUN 18, creatinine 0.6, glucos e 411. A1c is pending. Beta hydroxybutyrate is elevated at 2. I Discussed case Dr. Rosina Del Real. ASSESSMENT/PLAN: 51-year-old gentleman presents with decompensated diabetic state, not diabetic keto acidosis. 1. Anion gap metabolic acidosis. This is starvation ketosis. He has received long-acting insulin a nd IV fluids. 2. Elevated lactate. This is probably secondary to relative hypoperfusion. He does not have sepsis . 3. Diabetes, uncontrolled. Start Lantus 20, with a high dose sliding scale. 4. Nausea and vomiting are consistent with diabetic gastroparesis. We will start him on Phenergan, Zofran and erythromycin. 5. Prophylaxis. Pharmacologic prophylaxis indicated low-molecular heparin. /[id number]/MODL
--- NOTE | 2017-07-03 15:24 | PDMN ---
Medical Necessity Medical necessity: C/M review: est. > 2 MN LOS for eval and TX of acute anion gap acidosis, elevated lactate, uncontrolled diabetes, abdominal pain, nausea / vomiting - consistent with diabetic gastroparesis requiring IV Erythromycin, IV fluids, IV Phenergan, IV Zofran, long acting subcutaneous insulin with high dose sliding scale insulin comorbid history of type 2 uncontrolled diabetes, peripheral neuropathy, gastroparesis, vision loss, patient has not taken insulin in months per H/P.
[2017-07-03] MEDS ORDERED: NS IV SCH (18:00)
[2017-07-03] MEDS ORDERED: ERYTHROMYCIN LACTOBIONATE IV SCH (18:00)
[2017-07-03] MEDS: ONDANSETRON 4 MG/2 ML VIAL IVP PRN ×2 (18:08→23:09)
--- NOTE | 2017-07-03 20:48 | CPEKG ---
Heart Rate: 53 RR Interval: 1132 P-R Interval: 136 QRSD Interval: 84 QT Interval: 396 QTC Interval: 372 P Orlando: 39 QRS Orlando: 21 T Wave Orlando: 21 EKG Severity - NORMAL ECG - EKG Impression: SINUS RHYTHM Electronically Signed By: Tyrell Waldrop 04-Jul-2017 06:52:23
[2017-07-03] MEDS: METOCLOPRAMIDE 10 MG/2 ML VIAL IVP SCH (21:01)
[2017-07-04] MEDS: PROMETHAZINE HCL 25 MG/ML INJ IVP PRN (01:56)
[2017-07-04] MEDS ORDERED: HALOPERIDOL LACT 5 MG/ML INJ IVP ONE (04:53)
[2017-07-04] MEDS: METOCLOPRAMIDE 10 MG/2 ML VIAL IVP SCH (05:14)
[2017-07-04] MEDS: INSULIN LISPRO 100 UNIT/ML SC SCH ×3 (07:55→18:00)
[2017-07-04] MEDS: ENOXAPARIN 40 MG/0.4 ML SYR SC SCH (09:42)
[2017-07-04] MEDS: LORazepam 2 MG/ML INJ IVP PRN (09:42)
[2017-07-04] MEDS: INSULIN GLARGINE 100 UNITS/ML UNIT SC SCH (09:42)
[2017-07-04] MEDS ORDERED: INSULIN GLARGINE 100 UNITS/ML UNIT SC ONE (10:08)
--- NOTE | 2017-07-04 10:20 | HOSPPROG ---
Hospitalist Progress Note Assessment/Plan: * DM II - uncontrolled - HgA1c 12.3 -patient non-complaint - off all meds - no PCP -now on Lantus - agreeable to continuation upon discharge * Diabetic gastroparesis - 5th hospitalization since moving here in October -intolerant of Reglan due to tardive dyskinesia -still minimal PO since admission -on IV reglan - likely need to DC soon -IV erythromycin on back order - not available -consult GI - discuss alternative options -? repeat work-up - all done previously in [place] - request records -possible cannabis hyperemesis - heavy use reported in past * Metabolic encephalopathy -somnolence improved * Dehydration - elevated lactate -continue IVF until PO Subjective: No PO yet. Reason for non-compliance states as "laziness" Objective: Vital Signs Temp Pulse Resp BP Pulse Ox 36.8 C 63 20 122/60 H 98 07/04/17 07:34 07/04/17 07:34 07/04/17 07:34 07/04/17 07:34 07/04/17 07:34 Laboratory Results 07/04/17 05:00 07/03/17 07/04/17 07/05/17 05:59 05:59 05:59 Intake Total 6054 Output Total 700 Balance 5354 OLD CHART REVIEW - multiple hospitalizations for gastroparesis, non compliance EKG viewed, my personal interpretation is - NSR, no ST Changes discuss case with Dr. Canchola - GI - Physical Exam Constitutional: no apparent distress, appears nourished, not in pain Cardiovascular: regular rate and rhythym, no murmur, rub, or gallop Respiratory: no respiratory distress, no rales or rhonchi, clear to auscultation Gastrointestinal: normoactive bowel sounds, soft, non-tender abdomen, no palpable masses Skin: no rashes or abrasions, no fluctuance, no induration Neurologic: AAOx3, sensation intact bilaterally Psychiatric: interacting appropriately, not anxious, not encephalopathic, thought process linear ICD10 Worksheet Patient Problems: Problems Problem Status Onset Dehydration Acute Diabetes Acute Gastroparesis Acute Hyperglycemia Acute Acidosis Acute Cyclic vomiting syndrome Acute Intractable vomiting Acute
--- NOTE | 2017-07-04 14:27 | ASMTCASEMG ---
Living Arrangements What is your living Answers: With Spouse arrangement? Who do you live with? Type Of Residence What kind of residence do Answers: House you live in? Discharge Plan Comments Coordination Status Comments Notes: Pt is a 51 y/o man admitted for hyperglycemia, dehydration and gastroparesis. CM spoke w/ Dr. Medellin regarding d/c POC. Dr. Medellin requested that CM obtains a new PCP for pt along w/ an appointment. CM met w/ pt for dispo planning. Pt is agreeable for CM to make a new PCP appointment. Pt has an appointment w/ Dr. Mchugh for 07/11 @ 10AM. CM inputted appointment into [facility]. Pt will most likely not have any other needs. No therapies ordered at this time. CM available for changes. Plan: Independent Date Signed: 07/04/2017 02:26 PM Electronically Signed By:WILNER Smith
[2017-07-04] MEDS: NS 1,000 ML IV SCH (19:44)
--- NOTE | 2017-07-04 20:32 | GCON ---
[f rep st] CONSULTATION Corrected report CHIEF COMPLAINT: Nausea and vomiting. REASON FOR CONSULTATION: I have been asked to see this 51-year-old gentleman by Dr. Kathrin Medellin for consultation regarding nausea and vomiting and history of gastroparesis. HISTORY OF PRESENT ILLNESS: This 51-year-old gentleman has poorly controlled diabetes and reported history of gastroparesis with recurrent episodes of nausea and vomiting. He has had several hospital admissions to [facility] for nausea and vomiting. He previously had been managed in [place]. Patient is very noncompliant with treatment of his diabetes. He does use insulin intermittently, but has not been on any particular treatment for diabetes recently. 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 Does moderately use heavy marijuana. He has normal bowel movements. At times can have diarrhea during attacks. He was previously admitted about a month ago with similar presentation, and two times in November. He has been managed with IV fluids. Blood sugar control with insulin and antiemetics. He has been treated with Reglan in the past, which caused symptoms of tardive dyskinesia. Does have an elevated hemoglobin A1c of around 12, with high blood sugars in the 300s. He has had full evaluation with right upper quadrant ultrasound, upper endoscopy, and gastric emptying study in [place]. PAST MEDICAL HISTORY: Remarkable for type 2 diabetes mellitus, peripheral neuropathy, gastroparesis, and reported vision loss. ALLERGIES: Penicillin. MEDICATIONS: Prior to admission: None. Previously had been on NPH insulin, omeprazole, lorazepam and ondansetron. SOCIAL HISTORY: Does use marijuana daily, is on disability. Does not drink alcohol. FAMILY HISTORY: Negative as it pertains to chief complaint. REVIEW OF SYSTEMS: Negative for 10 systems other than in the HPI. PHYSICAL EXAM: VITAL SIGNS: 131/69, heart rate 78, respiratory rate 18, 97% sat on room air. His temperature is 37.1 Celsius. GENERAL: An ill-appearing gentleman, lying in bed. HEENT: Normocephalic, atraumatic. EOMI. NECK: Supple. No cervical adenopathy. NECK: Supple. LUNGS: Clear. CARDIAC: Normal S1, S2, without murmur. ABDOMEN: Benign. No hepatosplenomegaly. Nontender. EXTREMITIES: Without clubbing, cyanosis, edema. SKIN: Warm, dry, and intact. NEUROLOGIC: Nonfocal. PSYCHIATRIC: Alert and oriented x3. Normal affect. LABORATORY DATA: White count 19.69, hemoglobin is 17.6, with hematocrit of 50.2 , MCV of 87.6, platelets of 210,000. Serum sodium 138, potassium 4.3, chloride 103, CO2 of 18, BUN of 16, creatinine 0.6, blood sugar of 199. IMPRESSION: A 51-year-old gentleman with poorly controlled diabetes. This is certainly contributing to his symptoms, with gastroparesis, nausea and vomiting. The patient needs better control of his insulin. 1. Continue IV hydration, antiemetics. 2. Would recommend initiation of erythromycin IV 250 mg q.6 hours. When taking p.o., can switch to 250 mg p.o. q.6. 3. Recommend Endocrinology consult. 4. Would avoid Reglan. 5. Dietary consult for gastroparetic diet, as well as diabetic diet. 6. Will need to review previous records from [place] regarding previous workup. May need to consider repeat ultrasound to rule out cholelithiasis contributing to his symptoms of nausea and vomiting. Will follow with you. Thank you for allowing us to participate in the care of this patient. /[id number]/MODL Vashti acc#, 07/08/17, milad PROCTOR
[2017-07-05] MEDS: NS 1,000 ML IV SCH ×2 (03:44→11:29)
[2017-07-05 05:18] LABS: PLATELET COUNT 131 10^3/uL (150-400)
[2017-07-05] MEDS: ENOXAPARIN 40 MG/0.4 ML SYR SC SCH ×2 (07:50→07:52)
[2017-07-05] MEDS: INSULIN GLARGINE 100 UNITS/ML UNIT SC SCH (07:50)
[2017-07-05] MEDS: INSULIN LISPRO 100 UNIT/ML SC SCH ×3 (07:52→17:19)
[2017-07-05] MEDS: ONDANSETRON DISINTEGRATING 4 MG TAB PO PRN (08:10)
[2017-07-05] MEDS: ONDANSETRON 4 MG/2 ML VIAL IVP PRN ×2 (08:11→16:58)
[2017-07-05] MEDS: PROMETHAZINE HCL 25 MG/ML INJ IVP PRN ×2 (09:25→16:58)
[2017-07-05] MEDS: LORazepam 2 MG/ML INJ IVP PRN ×2 (11:26→18:02)
--- NOTE | 2017-07-05 14:29 | SOAPPROG ---
SOAP Progress Note Assessment/Plan: Assessment: Nausea and vomiting. Still unable to keep NPO. Plan: 1. RUQ U/S 2. Will need to repeat GES 3. Plan on EGD on this admission if still cannot keep PO 4. Recommend Endocrinology and dietary consults 5. Avoid THC (marijuana). 6. Continue IV hydration and IV EES 07/05/17 14:29 Subjective: CC: Nausea and vomiting Poorly controlled diabetid with peripheral neuropathy. Recurrent nausea and vomiting. Does smoke frequent marijuana and is poorly compliant with diabetes. Objective: Vital Signs Temp Pulse Resp BP Pulse Ox 37.0 C 65 14 147/92 H 98 07/05/17 07:47 07/05/17 07:47 07/05/17 07:47 07/05/17 07:47 07/05/17 07:47 Laboratory Results 07/05/17 05:03 07/05/17 05:03 07/04/17 07/05/17 07/06/17 05:59 05:59 05:59 Intake Total 6044 3714 Output Total 700 Balance 5354 3714 Generic Name Dose Route Start Last Admin Trade Name Freq PRN Reason Stop Dose Admin Acetaminophen 650 mg 07/03/17 11:01 Tylenol PO 12/30/17 11:00 Q4HRS PRN Pain, Mild/Fever, Can Take PO Dextrose 25 gm 07/03/17 11:00 Dextrose 50% Syringe IVP 12/30/17 10:59 PRN PRN Hypoglycemia Enoxaparin Sodium 40 mg 07/04/17 09:00 07/05/17 07:52 Lovenox SC 12/31/17 08:59 Not Given DAILY YAYO Sodium Chloride 1,000 mls @ 125 mls/hr 07/03/17 11:15 07/05/17 11:29 Ns IV 12/30/17 11:14 1,000 mls CONT YAYO Administration Insulin Glargine 20 units 07/04/17 09:00 07/05/17 07:50 Lantus Syringe SC 12/31/17 08:59 20 units DAILY YAYO Administration Insulin Human Lispro 0 unit 07/03/17 12:00 07/05/17 12:57 Humalog Lispro SC 12/30/17 11:59 Not Given TIDMEAL YAYO Protocol Lorazepam 1 mg 07/04/17 04:54 07/05/17 11:26 Ativan Injection IVP 12/31/17 04:53 1 mg Q6HRS PRN Administration Anxiety, Unable to Take PO Ondansetron HCl 4 mg 07/03/17 11:01 07/05/17 08:11 Zofran IVP 12/30/17 11:00 4 mg Q4HRS PRN Administration Nausea/Vomiting, Can't Take PO Ondansetron HCl 4 mg 07/03/17 11:01 07/05/17 08:10 Zofran Odt PO 12/30/17 11:00 4 mg Q4HRS PRN Administration Nausea/Vomiting, Use 1st Promethazine HCl 6.25 - 12.5 mg 07/03/17 11:01 07/05/17 09:25 Phenergan IVP 12/30/17 11:00 12.5 mg Q6HRS PRN Administration Nausea/Vomiting, Use 2nd Discontinued Medications Generic Name Dose Route Start Last Admin Trade Name Freq PRN Reason Stop Dose Admin Haloperidol Lactate 5 mg 07/03/17 08:21 07/03/17 08:34 Haldol Injection IVP 07/03/17 08:22 5 mg EDNOW ONE Administration Haloperidol Lactate Confirm 07/03/17 08:21 Haldol Injection Administered 07/03/17 08:22 Dose 5 mg .ROUTE .STK-MED ONE Haloperidol Lactate 2.5 mg 07/04/17 04:53 07/04/17 05:14 Haldol Injection IVP 07/04/17 04:54 2.5 mg ONCE ONE Administration Sodium Chloride 1,000 mls @ 0 mls/hr 07/03/17 07:51 07/03/17 07:57 Ns IV 07/03/17 07:52 1,000 mls ONCE ONE Administration Wide Open Sodium Chloride 1,000 mls @ 0 mls/hr 07/03/17 09:14 07/03/17 09:16 Ns IV 07/03/17 09:15 1,000 mls ONCE ONE Administration Wide Open Insulin Glargine 20 units 07/04/17 10:08 07/03/17 10:53 Lantus Syringe SC 07/04/17 10:09 20 units EDNOW ONE Administration Insulin Human Regular 10 unit 07/03/17 10:04 07/03/17 11:12 Humulin R IVP 07/03/17 10:05 Not Given EDNOW ONE Lorazepam 1 mg 07/03/17 08:17 07/03/17 08:34 Ativan Injection IVP 07/03/17 08:18 1 mg EDNOW ONE Administration Metoclopramide HCl 10 mg 07/03/17 21:00 07/04/17 05:14 Reglan Injection IVP 12/30/17 20:59 10 mg QID YAYO Administration Ondansetron HCl 4 mg 07/03/17 07:51 07/03/17 07:57 Zofran IVP 07/03/17 07:52 4 mg EDNOW ONE Administration Physical Exam - Physical Exam General Appearance: alert, no apparent distress Respiratory: lungs clear, normal breath sounds Cardiac/Chest: normal peripheral pulses, regular rate, rhythm Abdomen: normal bowel sounds, soft, other (slight tenderness to plapation) Skin: warm/dry Neuro/Psych: alert, normal mood/affect, oriented x 3 ICD10 Worksheet Patient Problems: Problems Problem Status Onset Dehydration Acute Diabetes Acute Gastroparesis Acute Hyperglycemia Acute Acidosis Acute Cyclic vomiting syndrome Acute Intractable vomiting Acute
--- NOTE | 2017-07-05 15:18 | HOSPPROG ---
Hospitalist Progress Note Assessment/Plan: * DM II - uncontrolled - HgA1c 12.3 -patient non-complaint - off all meds - no PCP -now on Lantus - agreeable to continuation upon discharge * intractable nausea vomiting Diabetic gastroparesis versus cannabinoid hyperemesis syndrome - 5th hospitalization since moving here in October -intolerant of Reglan due to tardive dyskinesia -still minimal PO since admission -IV erythromycin on back order - not available -? repeat work-up - all done previously in [place] - request records * Metabolic encephalopathy -somnolence improved * Dehydration - elevated lactate -continue IVF until PO Disposition: Will continue inpatient care until he is able to eat. Consider GI consultation if not improving. Subjective: Patient continues to have severe bouts of nausea vomiting matter mainly worse in the morning. He has taken about 5 hot showers today. He has not been able to eat very much due to persistent low-grade nausea throughout the day. Objective: Vital Signs Temp Pulse Resp BP Pulse Ox 37.0 C 65 14 147/92 H 98 07/05/17 07:47 07/05/17 07:47 07/05/17 07:47 07/05/17 07:47 07/05/17 07:47 Laboratory Results 07/05/17 05:03 07/05/17 05:03 07/04/17 07/05/17 07/06/17 05:59 05:59 05:59 Intake Total 6054 3714 Output Total 700 Balance 5354 3714 - Physical Exam Constitutional: no apparent distress, appears nourished, not in pain Cardiovascular: regular rate and rhythym, no murmur, rub, or gallop Respiratory: no respiratory distress, no rales or rhonchi, clear to auscultation Gastrointestinal: normoactive bowel sounds, soft, non-tender abdomen, no palpable masses, No guarding, No rebound ICD10 Worksheet Patient Problems: Problems Problem Status Onset Intractable vomiting Acute Diabetes Acute Cyclic vomiting syndrome Acute Dehydration Acute Gastroparesis Acute Hyperglycemia Acute Acidosis Acute
[2017-07-06] MEDS: NS 1,000 ML IV SCH (00:11)
[2017-07-06] MEDS: LORazepam 2 MG/ML INJ IVP PRN ×3 (00:16→17:43)
[2017-07-06] MEDS ORDERED: NS 500 ML IV ONE (08:46)
[2017-07-06] MEDS ORDERED: fentaNYL 100 MCG/2 ML INJ ONE (09:01)
[2017-07-06] MEDS ORDERED: MIDAZOLAM 2 MG/2 ML VIAL ONE ×2 (09:01→09:18)
--- NOTE | 2017-07-06 09:30 | GIREPORT ---
[facility] - Endoscopy Department Patient Name: Felipe Lilly Procedure Date: 07/06/2017 9:12 AM Patient Type: Inpatient Attending MD/ ER Physician: Driss Canchola MD Procedure: Upper GI endoscopy Indications: Nausea with vomiting, diabetic, history of gastroparesis. Providers: Driss Canchola MD Medicines: Fentanyl 150 micrograms IV, Midazolam 8 mg IV Complications: No immediate complications. Description of Procedure: After obtaining informed consent, the endoscope was passed under direct vision. Throughout the procedure, the patient's blood pressure, pulse, and oxygen saturations were monitored continuously. The Endoscope was intro duced through the mouth, and advanced to the second part of duodenum. The [facility] er GI endoscopy was accomplished without difficulty. The patient tolerated th e procedure well. Findings: The examined esophagus was normal. The entire examined stomach was normal. Biopsies were taken with a cold forceps for histology. The examined duodenum was normal. Biopsies for histology were taken wit h a cold forceps for evaluation of celiac disease. Estimated Blood Loss: Estimated blood loss: none. Post Op Diagnosis: - Normal esophagus. - Normal stomach. Biopsied. - Normal examined duodenum. Biopsied. Recommendation: - Await pathology results. - Follow an antireflux regimen. - Advance diet as tolerated to 1800 chelle ADA diet. - Do a gastric emptying study. - Thank you for allowing me to participate in the care of your patient. Attending Participation: I personally performed the entire procedure. Driss Canchola MD Driss Canchola MD 07/06/2017 9:30:32 AM This report has been signed electronicallyDriss Canchola MD Number of Addenda: 0 Note Initiated On: 07/06/2017 9:12 AM [email or web address]
[2017-07-06] MEDS ORDERED: fentaNYL 100 MCG/2 ML INJ IVP ONE (09:37)
[2017-07-06] MEDS ORDERED: MIDAZOLAM 2 MG/2 ML VIAL IVP ONE (09:37)
--- NOTE | 2017-07-06 09:39 | PDPROPOC ---
Sedation Plan of Care ASA Classification: ASA 2 Planned drugs: fentanyl, midazolam Mallampati Score: Class 2 Mallampati Reference Image: Patient passed 3-3-2 rule?: Yes
[2017-07-06] MEDS: INSULIN LISPRO 100 UNIT/ML SC SCH ×3 (10:27→17:26)
[2017-07-06] MEDS: ENOXAPARIN 40 MG/0.4 ML SYR SC SCH (10:27)
[2017-07-06] MEDS: INSULIN GLARGINE 100 UNITS/ML UNIT SC SCH (11:08)
--- NOTE | 2017-07-06 13:25 | HOSPPROG ---
Hospitalist Progress Note Assessment/Plan: Patient is a 51-year-old male who presented the emergency room with nausea vomiting abdominal pain. He has known diabetes and has not been get insulin. In talking with them he has recently moved and losses glucometer. He has chronic issues with gastroparesis. Today is my 1st encounter with the patient. Chart reviewed. * DM II - uncontrolled - HgA1c 12.3 -patient non-complaint - off all meds - no PCP -now on Lantus - agreeable to continuation upon discharge -doing well with the lantus -placed on an ADA diet -asked nursing staff to give him a glucometer and review how to draw up insulin -have asked the pipe bowl paint trimmer to see him to teach him how to count carbohydrates * intractable nausea vomiting Diabetic gastroparesis versus cannabinoid hyperemesis syndrome - 5th hospitalization since moving here in October -had an upper GI today that is shows a normal esophagus, stomach and duodenum -to get a gastric emptying study -intolerant of Reglan due to tardive dyskinesia -he is anxious to leave today, but has tolerated very little oral intake/ drinking some fluids * Metabolic encephalopathy -resolved * Dehydration - elevated lactate -dc fluids today * hypokalemia -start electrolyte protocol Disposition: Will continue inpatient care until he is able to eat. Subjective: Felipe is feeling better overall, but still not able to eat much. Objective: Vital Signs Temp Pulse Resp BP Pulse Ox 36.9 C 61 16 110/70 95 07/06/17 09:32 07/06/17 10:21 07/06/17 10:21 07/06/17 10:21 07/06/17 10:21 Laboratory Results 07/05/17 05:03 07/05/17 05:03 07/05/17 07/06/17 07/07/17 05:59 05:59 05:59 Intake Total 3714 1230 Output Total 500 600 Balance 3714 730 -600 - Physical Exam Constitutional: no apparent distress, appears nourished, not in pain Eyes: PERRL Ears, Nose, Mouth, Throat: hearing normal Cardiovascular: regular rate and rhythym Respiratory: no respiratory distress Gastrointestinal: soft, non-tender abdomen, No normoactive bowel sounds ( hypoactive) Skin: warm Musculoskeletal: full muscle strength Neurologic: AAOx3 Psychiatric: interacting appropriately ICD10 Worksheet Patient Problems: Problems Problem Status Onset Dehydration Acute Diabetes Acute Gastroparesis Acute Hyperglycemia Acute Acidosis Acute Cyclic vomiting syndrome Acute Intractable vomiting Acute
[2017-07-06] MEDS ORDERED: PROTOCOL POTASSIUM 1 DOSE MISC PRN (15:24)
[2017-07-06] MEDS ORDERED: POTASSIUM CL 10 MEQ TAB PO ONE (21:19)
[2017-07-06 23:48] VITALS: O2SAT 97
[2017-07-07] MEDS: LORazepam 2 MG/ML INJ IVP PRN ×2 (05:41)
[2017-07-07] MEDS ORDERED: POTASSIUM CL 10 MEQ TAB PO ONE (07:36)
[2017-07-07 07:37] VITALS: BP 127/79; PULSE 51; RESP 18; TEMP 98.3
[2017-07-07] MEDS: INSULIN LISPRO 100 UNIT/ML SC SCH ×2 (08:16→12:46)
[2017-07-07] MEDS: ENOXAPARIN 40 MG/0.4 ML SYR SC SCH (08:20)
[2017-07-07] MEDS: INSULIN GLARGINE 100 UNITS/ML UNIT SC SCH (08:20)
[2017-07-07] MEDS: ONDANSETRON 4 MG/2 ML VIAL IVP PRN (10:34)
--- NOTE | 2017-07-07 13:26 | SOAPPROG ---
SOAP Progress Note Assessment/Plan: Assessment: Normal EGD and Normal U/S liver/GB GES pending. However prolonged procedure. Constipation. Start Miralax 17 grams daily. Plan: 1. Small frequent meals, gastroparesis diet (should have met with trailer mechanic) 2. EES 250 mg ac 3. Patient does have constipation. Would discharge home on Miralax 17 grams daily 4. Follow up with PCP or Endocrine for DM. 5. Avoid THC (marijuana). 6. Pantoprazole 4 mg daily 07/07/17 13:23 Subjective: CC: N and Vomiting Feeling better. Able to eat more. Having some constipation He feels as this contributes to his symptoms of nausea/vomiting. Objective: Vital Signs Temp Pulse Resp BP Pulse Ox 36.8 C 51 L 18 127/79 H 97 07/07/17 07:36 07/07/17 07:36 07/07/17 07:36 07/07/17 07:36 07/07/17 07:36 Laboratory Results 07/05/17 05:03 07/07/17 04:55 07/06/17 07/07/17 07/08/17 05:59 05:59 05:59 Intake Total 1230 Output Total 500 1000 Balance 730 -1000 Generic Name Dose Route Start Last Admin Trade Name Freq PRN Reason Stop Dose Admin Acetaminophen 650 mg 07/03/17 11:01 Tylenol PO 12/30/17 11:00 Q4HRS PRN Pain, Mild/Fever, Can Take PO Dextrose 25 gm 07/03/17 11:00 Dextrose 50% Syringe IVP 12/30/17 10:59 PRN PRN Hypoglycemia Enoxaparin Sodium 40 mg 07/04/17 09:00 07/07/17 08:20 Lovenox SC 12/31/17 08:59 Not Given DAILY YAYO Insulin Glargine 20 units 07/04/17 09:00 07/07/17 08:20 Lantus Syringe SC 12/31/17 08:59 20 units DAILY YAYO Administration Insulin Human Lispro 0 unit 07/03/17 12:00 07/07/17 12:46 Humalog Lispro SC 12/30/17 11:59 Not Given TIDMEAL YAYO Protocol Lorazepam 1 mg 07/04/17 04:54 07/07/17 05:41 Ativan Injection IVP 12/31/17 04:53 1 mg Q6HRS PRN Administration Anxiety, Unable to Take PO Ondansetron HCl 4 mg 07/03/17 11:01 07/07/17 10:34 Zofran IVP 12/30/17 11:00 4 mg Q4HRS PRN Administration Nausea/Vomiting, Can't Take PO Ondansetron HCl 4 mg 07/03/17 11:01 07/05/17 08:10 Zofran Odt PO 12/30/17 11:00 4 mg Q4HRS PRN Administration Nausea/Vomiting, Use 1st Potassium Chloride 1 dose 07/06/17 15:24 Protocol Potassium MISC 01/02/18 15:23 AD PRN Pt on Electrolyte Protocol Protocol Promethazine HCl 6.25 - 12.5 mg 07/03/17 11:01 07/05/17 16:58 Phenergan IVP 12/30/17 11:00 12.5 mg Q6HRS PRN Administration Nausea/Vomiting, Use 2nd Discontinued Medications Generic Name Dose Route Start Last Admin Trade Name Aronq PRN Reason Stop Dose Admin Fentanyl Confirm 07/06/17 09:01 Sublimaze Administered 07/06/17 09:02 Dose 200 mcg .ROUTE .STK-MED ONE Fentanyl 150 mcg 07/06/17 09:37 07/06/17 09:37 Sublimaze IVP 07/06/17 09:38 150 mcg .STK-MED ONE Administration Haloperidol Lactate 5 mg 07/03/17 08:21 07/03/17 08:34 Haldol Injection IVP 07/03/17 08:22 5 mg EDNOW ONE Administration Haloperidol Lactate Confirm 07/03/17 08:21 Haldol Injection Administered 07/03/17 08:22 Dose 5 mg .ROUTE .STK-MED ONE Haloperidol Lactate 2.5 mg 07/04/17 04:53 07/04/17 05:14 Haldol Injection IVP 07/04/17 04:54 2.5 mg ONCE ONE Administration Sodium Chloride 1,000 mls @ 0 mls/hr 07/03/17 07:51 07/03/17 07:57 Ns IV 07/03/17 07:52 1,000 mls ONCE ONE Administration Wide Open Sodium Chloride 1,000 mls @ 0 mls/hr 07/03/17 09:14 07/03/17 09:16 Ns IV 07/03/17 09:15 1,000 mls ONCE ONE Administration Wide Open Sodium Chloride 1,000 mls @ 125 mls/hr 07/03/17 11:15 07/06/17 00:11 Ns IV 12/30/17 11:14 1,000 mls CONT YAYO Administration Sodium Chloride 500 mls @ 25 mls/hr 07/06/17 08:46 07/06/17 10:28 Ns IV 07/07/17 04:45 Not Given ONCALL ONE Insulin Glargine 20 units 07/04/17 10:08 07/03/17 10:53 Lantus Syringe SC 07/04/17 10:09 20 units EDNOW ONE Administration Insulin Human Regular 10 unit 07/03/17 10:04 07/03/17 11:12 Humulin R IVP 07/03/17 10:05 Not Given EDNOW ONE Lorazepam 1 mg 07/03/17 08:17 07/03/17 08:34 Ativan Injection IVP 07/03/17 08:18 1 mg EDNOW ONE Administration Metoclopramide HCl 10 mg 07/03/17 21:00 07/04/17 05:14 Reglan Injection IVP 12/30/17 20:59 10 mg QID YAYO Administration Midazolam HCl Confirm 07/06/17 09:01 Versed Administered 07/06/17 09:02 Dose 6 mg .ROUTE .STK-MED ONE Midazolam HCl Confirm 07/06/17 09:18 Versed Administered 07/06/17 09:19 Dose 4 mg .ROUTE .STK-MED ONE Midazolam HCl 8 mg 07/06/17 09:37 07/06/17 09:37 Versed IVP 07/06/17 09:38 8 mg .STK-MED ONE Administration Ondansetron HCl 4 mg 07/03/17 07:51 07/03/17 07:57 Zofran IVP 07/03/17 07:52 4 mg EDNOW ONE Administration Potassium Chloride 30 meq 07/06/17 21:19 07/06/17 21:32 Klor-Con PO 07/06/17 21:20 30 meq ONCE ONE Administration Protocol Potassium Chloride 10 - 40 meq 07/07/17 07:36 07/07/17 08:20 Klor-Con PO 07/07/17 07:37 30 meq ONCE ONE Administration Protocol Physical Exam - Physical Exam General Appearance: alert, no apparent distress Respiratory: lungs clear, normal breath sounds Cardiac/Chest: regular rate, rhythm Abdomen: normal bowel sounds, non-tender, soft Skin: normal color, warm/dry Neuro/Psych: alert, normal mood/affect ICD10 Worksheet Patient Problems: Problems Problem Status Onset Dehydration Acute Diabetes Acute Gastroparesis Acute Hyperglycemia Acute Acidosis Acute Cyclic vomiting syndrome Acute Intractable vomiting Acute
--- NOTE | 2017-07-07 13:57 | HOSPPROG ---
Hospitalist Progress Note Assessment/Plan: Patient is a 51-year-old male who presented the emergency room with nausea vomiting abdominal pain. He has known diabetes and has not been get insulin. In talking with them he has recently moved and losses glucometer. He has chronic issues with gastroparesis. Today is my 1st encounter with the patient. Chart reviewed. * DM II - uncontrolled - HgA1c 12.3 -patient non-complaint - off all meds - no PCP (gave him 2 PCP to f/u with) -now on Lantus - agreeable to continuation upon discharge -doing well with the lantus -placed on an ADA diet -asked nursing staff to give him a glucometer and review how to draw up insulin/ he knows how to do both -the bakery products checker met with him how to count carbohydrates * intractable nausea vomiting Diabetic gastroparesis versus cannabinoid hyperemesis syndrome - 5th hospitalization since moving here in October -had an upper GI today that is shows a normal esophagus, stomach and duodenum -to get a gastric emptying study -intolerant of Reglan due to tardive dyskinesia -he is eating and drinking well -gastric emptying study is pending * Metabolic encephalopathy -resolved * Dehydration - elevated lactate -resolved * hypokalemia -start electrolyte protocol Disposition: dc home, spent 20 minutes explaining to Felipe s/sx of high and low blood sugars, the importance of monitoring, encouraged him to stop cannibas for a few weeks to see if vomiting and nausea resolve (he uses it to help w nausea) Subjective: Felipe is feeling well, ate his lunch, anxious to go home. Objective: Vital Signs Temp Pulse Resp BP Pulse Ox 36.8 C 51 L 18 127/79 H 97 07/07/17 07:36 07/07/17 07:36 07/07/17 07:36 07/07/17 07:36 07/07/17 07:36 Laboratory Results 07/05/17 05:03 07/07/17 04:55 07/06/17 07/07/17 07/08/17 05:59 05:59 05:59 Intake Total 1230 Output Total 500 1000 Balance 730 -1000 - Physical Exam Constitutional: no apparent distress, appears nourished, not in pain Eyes: PERRL Ears, Nose, Mouth, Throat: hearing normal Respiratory: no respiratory distress Skin: warm Musculoskeletal: full muscle strength Neurologic: AAOx3 Psychiatric: interacting appropriately, not anxious ICD10 Worksheet Patient Problems: Problems Problem Status Onset Acidosis Acute Cyclic vomiting syndrome Acute Dehydration Acute Diabetes Acute Gastroparesis Acute Hyperglycemia Acute Intractable vomiting Acute
[2017-07-07] MEDS ORDERED: POLYETHYLENE GLYCOL 3350 17 GM PKT PO SCH (14:00)
[2017-07-07] MEDS ORDERED: PANTOPRAZOLE SODIUM 40 MG TAB PO ONE (14:00)
--- NOTE | 2017-07-07 15:04 | ASMTCMCOM ---
CM Note CM Note Notes: Plan remains the same, pt will dc home w/support of when medically stable. CM available for any changes, pt given bus pass. DC Plan: Independent Date Signed: 07/07/2017 03:03 PM Electronically Signed By:Xochitl Ochoa RN
--- NOTE | 2017-07-07 15:09 | ASMTLACE ---
LACE Length of stay for Answers: 4-6 days current admission Acuity / Level of Answers: Yes Care: Did the patient have an inpatient admission? Comorbidities - select Answers: Diabetes (uncontrolled or all that apply controlled) # of Emergency department Answers: 3-4 visits in the last 6 months Score: 11 Date Signed: 07/07/2017 03:09 PM Electronically Signed By:Xochitl Ochoa RN
--- NOTE | 2017-07-07 17:14 | ASMTCMCOM ---
CM Note CM Note Notes: Pt left hospital before issue with precriptions could be resolved. medical records specialist spoke w/CM concerning pt was supposed to get RXs (Lantus and Erythromycin) from [facility] bedside service. Pt had told clinical staff that he had Medicare/Medicaid but when the pharmacist at [facility] ran his benefits, no Medicaid showed up and no drug benefits with Medicare. This was explained to pt by pharmacist as total charge for medications came to $960. Pt states "oh that's weird, I have a stack of paperwork at home." Pt stated he would come back tomorrow to get prescriptions. CM notified IMPREGNATING TANK OPERATOR and pharmacy to MAP medication, at least the Lantus but insulin is $200 and they cannot MAP it. CM called pt to discuss matter, pt's answered but connection was lost, CM called back and left message to call back. CM also notified Jennifer in financial counseling who only showed Medicare part A+B, she sent an Email to Elsa at [facility] to follow up with pt tomorrow. Date Signed: 07/07/2017 05:13 PM Electronically Signed By:Xochitl Ochoa RN
[2017-07-07] MEDS ORDERED: ERYTHROMYCIN BASE 250 MG TAB PO SCH (18:00)
--- NOTE | 2017-07-07 18:17 | GDS ---
[f rep st] DISCHARGE SUMMARY DISCHARGE DIAGNOSES: 1. Diabetes type 2 with a hemoglobin A1c of 12.3. 2. Intractable nausea and vomiting. 3. Metabolic encephalopathy. 4. Dehydration. 5. Hypokalemia. CONSULTATION: Dr. Driss Canchola. HISTORY: Briefly, the patient is a 51-year-old male who presented to the emergency room with nausea, vomiting, abdominal pain. He has known diabetes and has not been on insulin. In talking with the patient, he recently moved and lost his glucometer. He has chronic issues with gastroparesis. He was seen and evaluated by Dr. Canchola and had an abdominal ultrasound that showed a fatty liver, otherwise unremarkable. Subsequently, he had an upper GI endoscopy , which showed a normal esophagus, normal stomach and normal duodenum, and today prior to discharge he had a gastric emptying study that showed he has normal gastric emptying time. He was discharged home with detailed instructions and followup. Unfortunately, he left prior to getting his prescriptions for his diabetes, and other prescriptions to help with his nausea and ongoing vomiting. Case Management is attempting to reach him. HOSPITAL COURSE: 1. Diabetes type 2. Hemoglobin A1c is 12.3. He has been given a glucometer. The nursing staff has taught him how to draw up his insulin. He knows signs and symptoms of high blood sugar and low blood sugar. He is agreeable to continue this. Unfortunately, he left prior to getting the Lantus. 2. Intractable nausea and vomiting, possibly diabetic gastric paresis versus cannabis hyperemesis syndrome. This is his 5th hospitalization since moving here in October. He is intolerant of Reglan due to tardive dyskinesia. Today, he is doing much better. He is eating and drinking well. Recommendation was for him to be on erythromycin, MiraLAX, and a PPI. Recommendation is to abstain from Cannibis. 3. Metabolic encephalopathy, resolved. 4. Dehydration, resolved. 5. Hypokalemia, on electrolyte protocol. DISCHARGE CONDITION: Stable. Blood pressure is 127/79, heart rate 51, respiratory rate of 18, O2 saturation on room air is 97%, temperature is 36.8 Celsius. DISCHARGE MEDICATIONS: Please see the EMR. DISCHARGE INSTRUCTIONS: 1. To check his glucoses in the morning before meals and at night. Recommending a low carbohydrate diet. 2. I have given him names of primary care providers, as well as microfabrication engineer manager. I am hopeful that he will follow up with some of these providers to help with his care. He has an appointment with Dr. Mchugh next week. I left her a message about his discharge. 3. If he develops fever, chills, signs or symptoms of high or low blood sugar, to return to the ER. Greater than 30 minutes discharging and coordinating his care. /[id number]/MODL MTDD
== END 2017-07-07 15:33 | disposition home or self-care (01) | DRG 637 ==
LOC: OBSVTOIN 09:41 → F3E 11:07
PROVIDERS: ADMIT Internal Medicine; ATTEND Hospitalist
DX: E11.65 Type 2 diabetes mellitus with hyperglycemia (principal); E11.40 Type 2 diabetes mellitus with diabetic neuropathy, unspecified; R11.2 Nausea with vomiting, unspecified; G93.41 Metabolic encephalopathy; E86.0 Dehydration; E87.6 Hypokalemia; F12.90 Cannabis use, unspecified, uncomplicated; H54.7 Unspecified visual loss; Z91.14 Patient's other noncompliance with medication regimen; K59.00 Constipation, unspecified
CPT/HCPCS: 82947-QW; 96374; A9541; J1630; J1650; J1815; J2060; J2250; J2405; J2550; J2765; J3010

== ENCOUNTER 2017-08-13 04:51 | Observation (INO) | payer OTHER ==
[2017-08-13] MEDS ORDERED: NS 1,000 ML IV ONE ×2 (05:10→07:36)
[2017-08-13] MEDS ORDERED: ONDANSETRON 4 MG/2 ML VIAL IVP ONE (05:10)
--- NOTE | 2017-08-13 05:15 | EDPHY ---
H & P Stated Complaint: N/V ABD PAIN X 2 DAYS Time Seen by Provider: 08/13/17 05:13 HPI/ROS: Chief Complaint: Vomiting HPI: 51-year-old male with very poorly controlled type 2 diabetes is presenting with 2 days of nausea and vomiting. The patient states he has a history of gastroparesis however prior hospital admissions indicate that there is some question of also cannabinoid hyperemesis. Patient was admitted a little over a month ago and had extensive workup by gastroenterology I did not find any abnormalities in gastric emptying. At that time the patient left the hospital without he is Lantus prescription. He says he has not been taking any medications for his diabetes in the last month. He is continuing to use marijuana daily. He has also not followed up with primary care physician. No coffee grounds or blood in his vomit. No dark tarry stools. No fevers or chills. No chest pain or shortness of breath. Is having persistent moderate abdominal pain associated with vomiting. ROS: 10 point Review of Systems is negative except as noted in the HPI. PMH: Type 2 diabetes Social History: Chronic daily marijuana use Family History: non-contributory Physical Exam: Gen: Awake, Alert, No Distress HEENT: Nose: no rhinorrhea Eyes: PERRLA, EOMI Mouth: Dry mucous membranes Neck: Supple, no JVD Chest: nontender, lungs clear to auscultation Heart: S1, S2 normal, no murmur Abd: Soft, mild generalized tenderness, no guarding Back: no CVA tenderness, no midline tenderness Ext: no edema, non-tender Skin: no rash Neuro: CN II-XII intact, Sensation grossly intact, Strength 5/5 in bilateral upper and lower extremities - Personal History Current Tetanus Diphtheria and Acellular Pertussis (TDAP): Yes - Medical/Surgical History Hx Asthma: No Hx Chronic Respiratory Disease: No Hx Diabetes: Yes Hx Cardiac Disease: No Hx Renal Disease: No Hx Cirrhosis: No Hx Alcoholism: No Hx HIV/AIDS: No Hx Splenectomy or Spleen Trauma: No Other PMH: GASTROPARISIS r/t DM 2 poorly controlled, periph neuropathy - Social History Smoking Status: Never smoked Constitutional: Initial Vital Signs Temperature (C) 36.3 C 08/13/17 04:57 Heart Rate 97 08/13/17 04:57 Respiratory Rate 16 08/13/17 04:57 Blood Pressure 139/89 H 08/13/17 04:57 O2 Sat (%) 97 08/13/17 04:57 O2 Delivery Mode Room Air Allergies/Adverse Reactions: penicillin G Allergy (Verified 03/05/17 08:56) Unknown Home Medications: Medication Instructions Recorded Erythromycin Base [Otto-Tab] 250 mg PO TID #40 tab 07/07/17 Insulin Glargine [Lantus Syringe] 10 units SC DAILY #1 unit 07/07/17 Pantoprazole Sodium [Protonix 40mg 40 mg PO DAILY #60 tab 07/07/17 (*)] Polyethylene Glycol 3350 [Miralax 17 gm PO DAILY pkt 07/07/17 17 gm (*)] Syrge-Ndl,Ins 0.3 ml Half Felipe 1 each MC QID #60 disp.syrin 07/07/17 [Insulin Syringe] Medical Decision Making ED Course/Re-evaluation: Patient's laboratory evaluations show a leukocytosis with account of 22. Blood sugars four hundred fifty, he has a bicarb of 13. However looking at his records he has had this happen before rings coming in with intractable vomiting. This has been thought not to be secondary to DKA but rather to his dehydration and I tend to agree at this time. Patient is not a type 1 diabetic. He has not been taking any insulin for weeks. There is no obvious source of infection he does not have a left shift. I have ordered a urinalysis. Has not had any cough or shortness of breath. Patient will be given continued IV dehydration. I have admitted to Dr. Martinez, hospitalist for further hydration care. He also need to be restarted on his insulin. - Data Points Laboratory Results: Laboratory Results 08/13/17 05:57 08/13/17 05:57 08/13/17 08/13/17 05:57 05:57 WBC 22.29 10^3/uL H 10^3/uL (3.80-9.50) RBC 5.66 10^6/uL 10^6/uL (4.40-6.38) Hgb 17.4 g/dL g/dL (13.7-17.5) Hct 49.5 % % (40.0-51.0) MCV 87.5 fL fL (81.5-99.8) MCH 30.7 pg pg (27.9-34.1) MCHC 35.2 g/dL g/dL (32.4-36.7) RDW 12.5 % % (11.5-15.2) Plt Count 207 10^3/uL 10^3/uL (150-400) MPV 12.2 fL H fL (8.7-11.7) Neut % (Auto) 83.1 % H % (39.3-74.2) Lymph % (Auto) 9.5 % L % (15.0-45.0) Robeson % (Auto) 6.1 % % (4.5-13.0) Eos % (Auto) 0.1 % L % (0.6-7.6) Baso % (Auto) 0.4 % % (0.3-1.7) Nucleat RBC Rel Count 0.0 % % (0.0-0.2) Absolute Neuts (auto) 18.50 10^3/uL H 10^3/uL (1.70-6.50) Absolute Lymphs (auto) 2.12 10^3/uL 10^3/uL (1.00-3.00) Absolute Monos (auto) 1.37 10^3/uL H 10^3/uL (0.30-0.80) Absolute Eos (auto) 0.02 10^3/uL L 10^3/uL (0.03-0.40) Absolute Basos (auto) 0.10 10^3/uL 10^3/uL (0.02-0.10) Absolute Nucleated RBC 0.00 10^3/uL 10^3/uL (0-0.01) Immature Gran % 0.8 % % (0.0-1.1) Immature Gran # 0.18 10^3/uL H 10^3/uL (0.00-0.10) Sodium 140 mEq/L mEq/L (135-145) Potassium 4.4 mEq/L mEq/L (3.5-5.2) Chloride 106 mEq/L mEq/L (97-110) Carbon Dioxide 13 mEq/l L mEq/l (22-31) Anion Gap 21 mEq/L H mEq/L (8-16) BUN 14 mg/dL mg/dL (7-23) Creatinine 0.7 mg/dL mg/dL (0.7-1.3) Estimated GFR > 60 Glucose 482 mg/dL H mg/dL (70-100) Calcium 9.8 mg/dL mg/dL (8.5-10.4) Medications Given: Discontinued Medications Sodium Chloride (Ns) 1,000 mls @ 0 mls/hr IV ONCE ONE; Wide Open PRN Reason: Protocol Stop: 08/13/17 05:11 Last Admin: 08/13/17 05:46 Dose: 1,000 mls Ondansetron HCl (Zofran) 4 mg IVP EDNOW ONE Stop: 08/13/17 05:11 Last Admin: 08/13/17 05:46 Dose: 4 mg Departure - Departure Disposition: [facility] Inpatient Acute Clinical Impression: Intractable vomiting, Acidosis, Dehydration Condition: Fair Referrals: NONE *PRIMARY CARE P,. [Primary Care Provider] - As per Instructions
[2017-08-13 06:06] LABS: PLATELET COUNT 207 10^3/uL (150-400)
[2017-08-13] MEDS ORDERED: diphenhydrAMINE 25 MG CAP PO PRN (06:39)
[2017-08-13] MEDS ORDERED: ACETAMINOPHEN 325 MG TAB PO PRN (06:39)
[2017-08-13] MEDS ORDERED: METOCLOPRAMIDE 10 MG TAB PO PRN (06:39)
[2017-08-13] MEDS ORDERED: INSULIN LISPRO 100 UNIT/ML SC ONE (06:42)
[2017-08-13] MEDS ORDERED: METOCLOPRAMIDE 10 MG/2 ML VIAL IVP PRN (07:21)
[2017-08-13] MEDS ORDERED: METOCLOPRAMIDE 10 MG/2 ML VIAL ONE (07:22)
[2017-08-13] MEDS ORDERED: METOCLOPRAMIDE 10 MG/10 ML UDL ONE (07:22)
[2017-08-13] MEDS: ONDANSETRON 4 MG/2 ML VIAL IVP PRN ×4 (07:31→20:53)
[2017-08-13] MEDS ORDERED: METOCLOPRAMIDE 10 MG/2 ML VIAL IVP ONE (07:32)
--- NOTE | 2017-08-13 07:45 | PDGENHP ---
History and Physical - Chief Complaint Nausea vomiting abdominal pain - History of Present Illness Source-patient is able to answer majority of the questions. He is actively vomiting limiting history directly from the patient. Case was discussed with ED provider in EMR was reviewed. Patient has had recent hospitalizations this year for similar symptoms. HPI - this is a 51-year-old gentleman with past medical history significant for untreated on uncontrolled diabetes type 2 with associated peripheral neuropathy and retinopathy, heavy use of marijuana dependence previous suspicion for gastroparesis with recent normal gastric emptying study history of noncompliance who presents emergency department today with complaints of 2 days of intractable nausea vomiting. Patient denies any fevers or chills. No sick contacts. Possible of recent travel out of town but I cannot elicit any any further details at this time secondary to patient's nausea vomiting. Patient reports diarrhea in addition. He denies any melena hematochezia or hematemesis. He does note bilious emesis. Patient additionally is complaining of abdominal distension and abdominal pain centrally. He is also noting some epigastric and right upper quadrant abdominal pain. Patient also with a history of strong marijuana use and suspicion for cannabinoid hyperemesis syndrome. Patient reports he has been trying to titrate down on his use but continues to use on a daily basis heavily. Patient previously also with the evaluation with out abdominal ultrasound is negative for any evidence of cholelithiasis or acute cholecystitis. Patient denies any scleral icterus or jaundice. Patient has not been able to tolerate any orals to keep anything down for the last several days. Patient denies any antibiotic use in the last 90 days. History Information - Allergies/Home Medication List Allergies/Adverse Reactions: penicillin G Allergy (Verified 03/05/17 08:56) Unknown Home Medications: NK [No Known Home Meds] 08/13/17 [Last Taken Unknown] I have personally reviewed and updated: family history, medical history, social history, surgical history - Past Medical History diabetes type 2 Additional medical history: Cyclical N/V. Diabetes type 2 uncontrolled with associated peripheral neuropathy and retinopathy. Noncompliance with insulin therapy due to cost per patient. History of DKA. Marijuana dependence - Surgical History Reports: no pertinent surgical hx - Family History Positive for: cancer, diabetes type II, hypertension Additional family history: Denies family hx of gastrointestinal disease - Social History Smoking Status: Never smoked Alcohol Use: None Drug Use: Marijuana (Heavy daily use) Additional social history: Patient is lives with his . Cor status- full. Review of Systems Review of Systems: ROS: 10pt was reviewed & negative except for what was stated in HPI & below Constitutional: Reports: malaise. Denies: chills, fever, recent illness EENMT: Reports: no symptoms. Denies: double vision, nose congestion, sore throat Cardiac: Reports: no symptoms. Denies: chest pain, edema Respiratory: Denies: cough, shortness of breath Gastrointestinal: Reports: vomitting, abdominal pain (See HPI), diarrhea, nausea. Denies: black stools, rectal bleeding Genitourinary: Reports: no symptoms. Denies: dysuria, hematuria Muscolosketal: Reports: no symptoms Skin: Reports: no symptoms, other (Denies jaundice) Neurological: Reports: no symptoms Hematologic/Lymphatic: Reports: no symptoms Physical Exam Physical Exam: Selected Entries 08/13/17 04:57 Blood Pressure Automatic Method Heart Rate 97 Respiratory 16 Rate O2 Sat (%) 97 Temperature (C) 36.3 C Blood Pressure 139/89 H Mean Arterial 105 H Pressure (MAP) O2 Delivery Room Air Mode Temperature Oral Source Temp Pulse Resp BP Pulse Ox 36.3 C 66 16 152/86 H 98 08/13/17 04:57 08/13/17 06:40 08/13/17 06:40 08/13/17 06:40 08/13/17 06:40 Constitutional: uncomfortable, other (Patient appears acutely ill and fatigued. He is resting in the bed with his eyes closed. Intermittent vomiting.) Eyes: anicteric sclera, other (Limited exam secondary to patient keeping his eyes closed for most of the interview.) Ears, Nose, Mouth, Throat: dry mucous membranes, other (No nasal discharge), No poor dentition Cardiovascular: regular rate and rhythym, no murmur, rub, or gallop, pulses symmetric bilaterally, No edema Peripheral Pulses: 1+: dorsalis-pedis (R), dorsalis-pedis (L) Respiratory: no respiratory distress, clear to auscultation, reduced air movement (Decreased inspiratory effort due to abdominal pain and nausea), No expiratory wheeze, No inspiratory crackles Gastrointestinal: tenderness (Right upper quadrant abdominal pain.), arevalo's sign, distension, other (Hypoactive bowel sounds, soft abdomen but tender diffusely.), No hepatosplenomegally, No guarding Genitourinary: no bladder tenderness, No fernandez in urethra (.) Skin: warm, no rashes or abrasions, other (Pallor, chronic lower extremity skin changes.) Musculoskeletal: generalized weakness, other (Patient moves all extremities), No pain with ROM Neurologic: AAOx3, other (Grossly left nonfocal but limited secondary to patient 's abdominal pain and nausea), No facial droop Psychiatric: flat affect, other (Patient answers questions appropriately mostly yes no.) Lab Data & Imaging Review 08/13/17 05:57 08/13/17 05:57 WBC 22.29 10^3/uL (3.80-9.50) H 08/13/17 05:57 RBC 5.66 10^6/uL (4.40-6.38) 08/13/17 05:57 Hgb 17.4 g/dL (13.7-17.5) 08/13/17 05:57 Hct 49.5 % (40.0-51.0) 08/13/17 05:57 MCV 87.5 fL (81.5-99.8) 08/13/17 05:57 MCH 30.7 pg (27.9-34.1) 08/13/17 05:57 MCHC 35.2 g/dL (32.4-36.7) 08/13/17 05:57 RDW 12.5 % (11.5-15.2) 08/13/17 05:57 Plt Count 207 10^3/uL (150-400) 08/13/17 05:57 MPV 12.2 fL (8.7-11.7) H 08/13/17 05:57 Neut % (Auto) 83.1 % (39.3-74.2) H 08/13/17 05:57 Lymph % (Auto) 9.5 % (15.0-45.0) L 08/13/17 05:57 Nelson % (Auto) 6.1 % (4.5-13.0) 08/13/17 05:57 Eos % (Auto) 0.1 % (0.6-7.6) L 08/13/17 05:57 Baso % (Auto) 0.4 % (0.3-1.7) 08/13/17 05:57 Nucleat RBC Rel Count 0.0 % (0.0-0.2) 08/13/17 05:57 Absolute Neuts (auto) 18.50 10^3/uL (1.70-6.50) H 08/13/17 05:57 Absolute Lymphs (auto) 2.12 10^3/uL (1.00-3.00) 08/13/17 05:57 Absolute Monos (auto) 1.37 10^3/uL (0.30-0.80) H 08/13/17 05:57 Absolute Eos (auto) 0.02 10^3/uL (0.03-0.40) L 08/13/17 05:57 Absolute Basos (auto) 0.10 10^3/uL (0.02-0.10) 08/13/17 05:57 Absolute Nucleated RBC 0.00 10^3/uL (0-0.01) 08/13/17 05:57 Immature Gran % 0.8 % (0.0-1.1) 08/13/17 05:57 Immature Gran # 0.18 10^3/uL (0.00-0.10) H 08/13/17 05:57 Sodium 140 mEq/L (135-145) 08/13/17 05:57 Potassium 4.4 mEq/L (3.5-5.2) 08/13/17 05:57 Chloride 106 mEq/L (97-110) 08/13/17 05:57 Carbon Dioxide 13 mEq/l (22-31) L 08/13/17 05:57 Anion Gap 21 mEq/L (8-16) H 08/13/17 05:57 BUN 14 mg/dL (7-23) 08/13/17 05:57 Creatinine 0.7 mg/dL (0.7-1.3) 08/13/17 05:57 Estimated GFR > 60 08/13/17 05:57 Glucose 482 mg/dL (70-100) H 08/13/17 05:57 Calcium 9.8 mg/dL (8.5-10.4) 08/13/17 05:57 Urine Color YELLOW 08/13/17 06:37 Urine Appearance CLEAR 08/13/17 06:37 Urine pH 5.0 (5.0-7.5) 08/13/17 06:37 Ur Specific [place] 1.032 (1.002-1.030) H 08/13/17 06:37 Urine Protein NEGATIVE (NEGATIVE) 08/13/17 06:37 Urine Ketones 2+ (NEGATIVE) H 08/13/17 06:37 Urine Blood NEGATIVE (NEGATIVE) 08/13/17 06:37 Urine Nitrate NEGATIVE (NEGATIVE) 08/13/17 06:37 Urine Bilirubin NEGATIVE (NEGATIVE) 08/13/17 06:37 Urine Urobilinogen NEGATIVE EU (0.2-1.0) 08/13/17 06:37 Ur Leukocyte Esterase NEGATIVE (NEGATIVE) 08/13/17 06:37 Urine RBC 1-3 /hpf (0-3) 08/13/17 06:37 Urine WBC 1-3 /hpf (0-3) 08/13/17 06:37 Ur Epithelial Cells NONE SEEN /lpf (NONE-1+) 08/13/17 06:37 Urine Glucose 3+ (NEGATIVE) H 08/13/17 06:37 Assessment & Plan Assessment: 51-year-old gentleman with history of poorly-controlled diabetes with insulin noncompliance, marijuana dependence who presents emergency department with similar symptoms for previous full #Metabolic Acidosis (Acute) - patient with likely some underlying lactic acidosis related to severe dehydration. Will plan to repeat a BMP and after IV fluid hydration and check lactate at that time as well. Patient has a elevated white count but similar to previous presentations for severe high dehydration. At this time do not suspect DKA although patient has been without insulin for some time will a provide some subcutaneous on 15 units and repeat BMP in several hours. Patient will be NPO at this time. #Dehydration (Acute) - aggressive IV fluid hydration. #Intractable vomiting (Acute) - patient continues to have emesis despite Zofran. Will add Reglan. check lipase and LFTs. If elevated consider reimaging with abdominal ultrasound versus CT. Patient with diffuse tenderness to palpation. He is complaining acutely of some epigastric pain and right upper quadrant pain. Patient with questionable Arevalo sign as he has similar response with deep palpation at other sites of the abdomen. Previous ultrasound of the abdomen completed on 07/12/2017 he did not show any evidence of cholelithiasis or acute cholecystitis. Patient without any jaundice or scleral icterus. #Dm 2 uncontrolled with peripheral neuropathy and retinopathy - patient room was discharge with multiple prescriptions however he left the hospital per without cleaning the physical strips. Patient reports that Lantus at over 200 dollars per month is too expensive and on has not been able to fill his insulin prescriptions. Consider discharge with Novolin 70/30 at 27 dollars per bottle. Patient noted that this would be more manageable cost for him even if he had a dose twice daily. #Marijuana dependence - patient continues to use on a daily basis. Is previously discussed with him given his normal gastric emptying study that is nausea vomiting recurrent is more likely related to his marijuana use and not to gastroparesis. Once patient is able to have further discussion will need review of his symptoms and recommendation for marijuana cessation. FEN - continue with aggressive IV fluid hydration. Patient will be NPO until his nausea vomiting are improved. Electrolytes will be monitored replaced if needed. PPX-SCDs. Hold off on Lovenox pending repeat laboratory studies on and further evaluation of patient's abdominal pain. Cor status-full Disposition patient has been admitted observation status at this time to the medical floor. Anticipate less than 2 midnight stay.
[2017-08-13] MEDS: NS 1,000 ML IV SCH ×3 (09:30→23:47)
[2017-08-13] MEDS: ENOXAPARIN 40 MG/0.4 ML SYR SC SCH (09:30)
[2017-08-13] MEDS ORDERED: D50W 25 GM/50 ML VIAL IVP PRN (17:23)
[2017-08-13] MEDS: fentaNYL 100 MCG/2 ML INJ IVP PRN ×2 (17:52→20:52)
[2017-08-13] MEDS: INSULIN REGULAR HUMAN 100 UNIT/ML UNIT SC SCH ×2 (18:05→21:38)
[2017-08-14] MEDS: fentaNYL 100 MCG/2 ML INJ IVP PRN ×3 (01:27→09:24)
[2017-08-14] MEDS: ONDANSETRON 4 MG/2 ML VIAL IVP PRN ×3 (01:28→09:23)
[2017-08-14 04:52] LABS: PLATELET COUNT 168 10^3/uL (150-400)
[2017-08-14 07:48] VITALS: BP 114/69
[2017-08-14] MEDS: INSULIN REGULAR HUMAN 100 UNIT/ML UNIT SC SCH (07:59)
[2017-08-14] MEDS: ENOXAPARIN 40 MG/0.4 ML SYR SC SCH (09:28)
[2017-08-14] MEDS ORDERED: PROMETHAZINE HCL 25 MG TAB PO PRN (09:55)
--- NOTE | 2017-08-14 10:49 | ASMTCMCOM ---
CM Note CM Note Notes: CM chart revewi for discharge planning purposes. Patient admitted under observation via ED for intractable vomiting and dehydration has a hx of uncontrolled DM II. Patient to be discharged today, per RN patient to be discharged today independently. CM to follow for any CM needs. Date Signed: 08/14/2017 10:48 AM Electronically Signed By:Laura Andrade
--- NOTE | 2017-08-14 13:17 | ASDISCHSUM ---
Discharge Information Plan Status:Home with No Needs Medically Cleared to Leave:08/14/2017 Discharge Date:08/14/2017 11:21 AM CM D/C Disposition:Home, Routine, Self-Care ADT D/C Disposition:Home, Routine, Self-Care Projected Discharge Date:08/14/2017 12:00 AM Transportation at D/C:Family Discharge Delay Reason: Follow-Up Date:08/14/2017 12:00 AM Discharge Slot:1 - 8:01 am - 12:00 noon Final Diagnosis:Acute metabolic acidosis, Intractable Vomiting. Placement Information Patient Contact Information Contact Name:BELLE Relationship: Address:[address] [place] [address] Work Phone: [facility]:[place] Alternate Phone: [facility]/Zip Code:[place] [address] Email: Financial Information Financial Class:Medicare Primary Plan Desc:MEDICARE OUTPATIENT Primary Plan Number:[id number] Secondary Plan Desc: Secondary Plan Number: Assessment Information [facility] CM Progress Note CM Note CM Note Notes: CM chart revewi for discharge planning purposes. Patient admitted under observation via ED for intractable vomiting and dehydration has a hx of uncontrolled DM II. Patient to be discharged today, per RN patient to be discharged today independently. CM to follow for any CM needs. Date Signed: 08/14/2017 10:48 AM Electronically Signed By:Laura Andrade Case Management Discharge Plan Note Case Management Discharge Discharge Order Complete? Answers: Yes Patient to Obtain Answers: via Family Medications Transportation Arranged Answers: Family/Friends Family Notified Answers: Yes Discharge Comments Notes: Patient met with member prior to discharge (admitted under observation <24 hrs). IM given to patient and signed for receipt. Patient states his will be picking him up and will be support to patient at home. No further CM needs identified at this time, CM available should needs arise. D/C Plan: D/C home independently today. Date Signed: 08/14/2017 01:16 PM Electronically Signed By:Laura Andrade Intervention Information Intervention Type:*IM-Signed Date of Service:08/14/2017 10:49 AM Patient Type:Observation Staff Member:Laura Andrade Hours: Discipline: Severity: Comment:Patient given and signed the receipt o f IM, copy placed in back of chart.
--- NOTE | 2017-08-14 14:44 | GDS ---
[f rep st] DISCHARGE SUMMARY PRIMARY CARE PROVIDER: None currently established. Patient recently moved from [place] to [place]. DISCHARGE DIAGNOSES: 1. Suspected cannabis hyperemesis syndrome. 2. Uncontrolled diabetes mellitus type 2. HISTORY OF PRESENT ILLNESS: The patient is a pleasant 51-year-old gentleman with a past medical hist ory of uncontrolled diabetes mellitus type 2, who presented to the [facility] on 08/13/2017, with a complaint of intractable nausea with vomiting. The patient states that he had a previous history of gastroparesis. He states he had this diagnosis about 10 years ago from his doctor in [place]. He had recently been in the hospital 1 month ago with similar symptoms and h ad a gastric emptying study which was negative. He additionally underwent an endoscopy which was unr emarkable and an abdominal ultrasound as well, which did not show any etiologies of nausea and vomiti ng. He does use marijuana on a daily basis. He used this as he was told by his cousin that it would help with his symptoms related to gastroparesis. The patient does state that he takes several hot s howers during the day, which does help his symptoms. Considering the negative workup, regular mariju josé use and improvement with hot showers, it was felt that he likely had cannabinoid hyperemesis synd venita. I talked with him today on the day of discharge about stopping marijuana use and doing [facility] with the doctor here in [facility] to see how he does with this change. He seemed open to this r ecommendation and agreeable to not using marijuana for the time being. We did also have a discussion on his diabetes which is uncontrolled, with a hemoglobin A1c recently measured at 12. We discussed a trial of metformin, which it sounds like he tried previously but states it was not very helpful, bu t was agreeable to retry it. It does not sound like he had any abdominal symptoms or side effects fr om the metformin when tried previously. HOSPITAL COURSE BY PROBLEM: 1. Nausea and vomiting, improved today. Patient was able to tolerate eating breakfast without any d ifficulty. Likely cannabinoid hyperemesis syndrome, and patient will stop using marijuana at this ti me. 2. Acute dehydration. Patient was on IV fluids overnight, appears euvolemic today. 3. Metabolic acidosis. Resolving with a bicarb going from 13-21 today. 4. Leukocytosis, also resolving. Likely stress response from emesis, improving from 22-14 today. N o fevers noted. 5. Diabetes mellitus type 2, uncontrolled with a hemoglobin A1c of 12. I recommend starting a low d ose of metformin and establishing outpatient followup. I gave him 2 months worth of metformin josé miguel the hospital to allow adequate time and establishing with a primary care doctor here in town. 6. Marijuana use. I recommend that patient stop using at this time, to reassess his abdominal sympt oms. 7. Deep venous thrombosis prophylaxis. Patient was on Lovenox during this hospitalization. DISPOSITION: Patient appears stable for discharge home independently today. EXAM: VITAL SIGNS: On day of discharge, temperature 37.1, blood pressure 114/69, heart rate 80, res pirations 14, saturating 97% on room air. GENERAL: Patient appears comfortable. He is standing up, awake, alert, conversant, no acute distress. HEART: Regular, no murmurs. ABDOMEN: Nondistended, nontender. LUNGS: Clear on auscultation. : No Trevizo catheter in place. EXTREMITIES: No signif icant pitting edema. NOTABLE STUDIES: Labs on the day of discharge show white blood cell count 14, hemoglobin 14, platele ts 168. Sodium is 136, potassium 3.9, chloride 105, bicarb 21, BUN is 13, creatinine 0.6, glucose of 171. Hemoglobin A1c measured at 12.3 in June of 2017. DISCHARGE MEDICATIONS: 1. Metformin 500 mg 1 tablet twice a day. 2. Phenergan 25 mg tablet half to 1 tablet every 6 hours as needed for nausea. DISCHARGE INSTRUCTIONS: The patient is looking into establishing with a local primary care provider as he plans on staying in [place] moving forward, as he moved here with his son over the past severa l months. We did discuss options and I recommended a followup visit in 3-4 weeks for reassessment of his symptoms. 40 minutes of time dedicated to discharge efforts. /[id number]/MODL
[2017-08-14] MEDS ORDERED: metFORMIN HCL 500 MG TAB PO SCH (18:00)
== END 2017-08-14 11:21 | disposition home or self-care (01) ==
LOC: F3E 08:08
PROVIDERS: ADMIT Family Medicine; ATTEND Internal Medicine
DX: E86.0 Dehydration (principal); R11.2 Nausea with vomiting, unspecified; E87.2 Acidosis; E11.40 Type 2 diabetes mellitus with diabetic neuropathy, unspecified; E11.319 Type 2 diabetes mellitus with unspecified diabetic retinopathy without macular edema; F12.20 Cannabis dependence, uncomplicated; R10.9 Unspecified abdominal pain; R19.7 Diarrhea, unspecified; Z91.120 Patient's intentional underdosing of medication regimen due to financial hardship; Z88.0 Allergy status to penicillin
CPT/HCPCS: G0378; J1200; J1650; J1815; J2405; J2765; J3010; 96374

== ENCOUNTER 2017-08-15 19:37 | Emergency (ER) | payer OTHER ==
[2017-08-15] MEDS ORDERED: NS 1,000 ML IV ONE ×2 (20:46→21:31)
[2017-08-15] MEDS ORDERED: ONDANSETRON 4 MG/2 ML VIAL IVP ONE (20:56)
[2017-08-15 21:02] LABS: PLATELET COUNT 166 10^3/uL (150-400)
--- NOTE | 2017-08-15 21:31 | EDPHY ---
H & P Time Seen by Provider: 08/15/17 20:35 HPI/ROS: Chief complaint. Nausea vomiting HPI. 51-year-old male with history of gastroparesis and cyclic vomiting syndrome. Admitted August 13 and discharged yesterday. From review of the discharge note he was eating and feeling quite well. He says he developed nausea and vomiting upon discharge yesterday. He has diffuse abdominal pain. No diarrhea. Has been vomiting his Phenergan and metformin. No chest discomfort or trouble breathing. No fever ROS Constitutional. no fever/chills, no weakness Eyes. no problems with vision ENT. no sore throat, no nasal drainage Cardiovascular. no chest pain Respiratory. no shortness of breath, no cough Abdominal. Abdominal pain with nausea and vomiting . no problems urinating MS. no calf pain/swelling, no neck/back pain, no joint pain Skin. no rash Lymph. no swollen glands Neuro. no headache, no dizziness, no difficulty walking or with speech Past Medical/Surgical History: Gastroparesis, cyclic vomiting, noncompliance with his insulin, peripheral neuropathy, retinopathy Social History: Single, nonsmoker, no alcohol Smoking Status: Never smoked Physical Exam: General Appearance: Alert well-developed male mild distress vital signs are stable Eyes: Pupils equal and round no pallor or injection. ENT, Mouth: Mucous membranes are moist. Respiratory: There are no retractions, lungs are clear to auscultation. Cardiovascular: Regular rate and rhythm. Gastrointestinal: Abdomen is diffusely tender but nonfocal. No masses. normal bowel sounds Neurological: Awake and alert, sensory and motor exams grossly normal. Skin: Warm and dry, no rashes. Musculoskeletal: Neck is supple nontender. Extremities symmetrical, full range of motion. Psychiatric: Patient is oriented X 3, there is no agitation. Constitutional: Initial Vital Signs Temperature (C) 37.8 C 08/15/17 20:12 Heart Rate 94 08/15/17 20:12 Respiratory Rate 16 08/15/17 20:12 Blood Pressure 128/82 H 08/15/17 20:12 O2 Sat (%) 95 08/15/17 20:12 O2 Delivery Mode Room Air Allergies/Adverse Reactions: penicillin G Allergy (Verified 08/15/17 20:14) Unknown Home Medications: Medication Instructions Recorded Promethazine HCl [Phenergan 25mg 12.5 - 25 mg PO Q6HRS PRN #30 tab 08/14/17 (*)] metFORMIN HCL [Glucophage 500 mg 500 mg PO BIDMEAL #60 tab 08/14/17 (*)] Medical Decision Making Procedures: IV normal saline. Zofran ED Course/Re-evaluation: On re-evaluation at 9:30 p.m. Patient has had 1 L of saline. He is somewhat nauseated. He is given IV Phenergan. 10 30 patient is taking oral ice chips. 11:15 p.m. No further vomiting. Patient and I discussed laboratory evaluation, treatment plan including criteria for return importance of follow-up and further evaluation. He expresses understanding and agreement. Differential Diagnosis: Cyclic vomiting syndrome. Patient has received 2 L of fluid. He has urinated. He is taking oral ice chips. He has Phenergan at home. - Data Points Laboratory Results: Laboratory Results 08/15/17 20:35 08/15/17 20:35 08/15/17 08/15/17 20:35 20:35 WBC 10.60 10^3/uL H 10^3/uL (3.80-9.50) RBC 5.16 10^6/uL 10^6/uL (4.40-6.38) Hgb 15.9 g/dL g/dL (13.7-17.5) Hct 43.7 % % (40.0-51.0) MCV 84.7 fL fL (81.5-99.8) MCH 30.8 pg pg (27.9-34.1) MCHC 36.4 g/dL g/dL (32.4-36.7) RDW 12.3 % % (11.5-15.2) Plt Count 166 10^3/uL 10^3/uL (150-400) MPV 12.1 fL H fL (8.7-11.7) Neut % (Auto) 74.2 % % (39.3-74.2) Lymph % (Auto) 16.0 % % (15.0-45.0) [place] % (Auto) 9.2 % % (4.5-13.0) Eos % (Auto) 0.0 % L % (0.6-7.6) Baso % (Auto) 0.3 % % (0.3-1.7) Nucleat RBC Rel Count 0.0 % % (0.0-0.2) Absolute Neuts (auto) 7.86 10^3/uL H 10^3/uL (1.70-6.50) Absolute Lymphs (auto) 1.70 10^3/uL 10^3/uL (1.00-3.00) Absolute Monos (auto) 0.98 10^3/uL H 10^3/uL (0.30-0.80) Absolute Eos (auto) 0.00 10^3/uL L 10^3/uL (0.03-0.40) Absolute Basos (auto) 0.03 10^3/uL 10^3/uL (0.02-0.10) Absolute Nucleated RBC 0.00 10^3/uL 10^3/uL (0-0.01) Immature Gran % 0.3 % % (0.0-1.1) Immature Gran # 0.03 10^3/uL 10^3/uL (0.00-0.10) Sodium 136 mEq/L mEq/L (135-145) Potassium 3.7 mEq/L mEq/L (3.5-5.2) Chloride 101 mEq/L mEq/L (97-110) Carbon Dioxide 18 mEq/l L mEq/l (22-31) Anion Gap 17 mEq/L H mEq/L (8-16) BUN 9 mg/dL mg/dL (7-23) Creatinine 0.7 mg/dL mg/dL (0.7-1.3) Estimated GFR > 60 Glucose 235 mg/dL H mg/dL (70-100) Calcium 9.3 mg/dL mg/dL (8.5-10.4) Medications Given: Discontinued Medications Sodium Chloride (Ns) 1,000 mls @ 0 mls/hr IV EDNOW ONE; Wide Open PRN Reason: Protocol Stop: 08/15/17 20:47 Last Admin: 08/15/17 20:55 Dose: 1,000 mls Sodium Chloride (Ns) 1,000 mls @ 0 mls/hr IV EDNOW ONE; Wide Open PRN Reason: Protocol Stop: 08/15/17 21:32 Last Admin: 08/15/17 21:49 Dose: 1,000 mls Ondansetron HCl (Zofran) 4 mg IVP EDNOW ONE Stop: 08/15/17 20:57 Last Admin: 08/15/17 21:04 Dose: 4 mg Promethazine HCl (Phenergan) 12.5 mg IVP EDNOW ONE Stop: 08/15/17 21:36 Last Admin: 08/15/17 21:50 Dose: 12.5 mg Departure - Departure Disposition: Home, Routine, Self-Care Clinical Impression: Cyclic vomiting syndrome Qualifiers: Vomiting Intractability: non-intractable Nausea presence: with nausea Qualified Code(s): G43.A0 - Cyclical vomiting, not intractable Condition: Good Instructions: Cyclic Vomiting Syndrome (ED) Additional Instructions: Frequent, small sips fluids. Gradual diet advancement. Phenergan for nausea. Continue to take your metformin and have diabetic diet. Return for worsening symptoms. Recheck in 1 day if not improved Referrals: NONE *PRIMARY CARE P,. [Primary Care Provider] - As per Instructions Nick Patten MD [Medical Doctor] - 2-3 days, call for appt.
[2017-08-15] MEDS ORDERED: PROMETHAZINE HCL 25 MG/ML INJ IVP ONE (21:35)
[2017-08-15 23:38] VITALS: BP 129/86
== END 2017-08-15 23:38 | disposition home or self-care (01) ==
DX: G43.A0 Cyclical vomiting, in migraine, not intractable (principal); E86.9 Volume depletion, unspecified
CPT/HCPCS: 96361; 96374; 96375; 99284; J2405; J2550

== ENCOUNTER 2018-01-07 15:36 | Inpatient (IN) | payer OTHER ==
[2018-01-07] MEDS ORDERED: ONDANSETRON 4 MG/2 ML VIAL IVP ONE (15:55)
[2018-01-07] MEDS ORDERED: NS 1,000 ML IV ONE ×2 (15:55→23:30)
--- NOTE | 2018-01-07 15:59 | EDPHY ---
H & P Time Seen by Provider: 01/07/18 15:46 HPI/ROS: CHIEF COMPLAINT: Nausea vomiting HISTORY OF PRESENT ILLNESS: Patient is history of gastric paresis was last admitted in October of this year says his symptoms are identical. At 4:00 a.m. Yesterday awakened with nausea vomiting and abdominal pain similar to today's symptoms. Severe, worse with oral intake. Abdominal pain is diffuse not localized. No diarrhea. Does not have hematemesis or coffee-ground emesis. Worse with oral intake. REVIEW OF SYSTEMS: Eye: no change in vision, has retinopathy unchanged ENT: no sore throat Cardiac: no chest pain or syncope Pulmonary: no cough or SOB Abdomen: HPI Musculoskeletal: Diffuse myalgias. Skin: no rash Neuro: no headache, has peripheral neuropathy unchanged Constitutional: no fever : no urinary symptoms A comprehensive 10 point review of systems is otherwise negative aside from elements mentioned in the history of present illness. PAST MEDICAL HISTORY: Hypertension, diabetes, peripheral neuropathy, retinopathy. Social history: Marijuana use regular, negative for alcohol or tobacco General Appearance: Alert and conversant, cooperative. Eyes: No scleral icterus. ENT, Mouth: Dry mucous membranes Respiratory: Normal respiratory effort, breath sounds equal, lungs are clear to auscultation. Cardiovascular: Regular rate and rhythm. Gastrointestinal: Abdomen is soft and non tender. Neurological: Alert, face symmetric, normal motor and sensory in extremities. Skin: Warm and dry, no rashes. Musculoskeletal: No peripheral edema. Psychiatric: Not agitated. Emergency Department course/MDM: Saline hydration, Zofran 4 mg IV. Labs to include CBC chemistry and CPK. 1724: Discussed with Rayrosanneoft. Almost every previous emergency department visit required admission. Patient says he is too sick to go home. Admission hospitalist service for supportive care. Smoking Status: Never smoked Constitutional: Initial Vital Signs Temperature (C) 36.7 C 01/07/18 15:37 Heart Rate 93 01/07/18 15:37 Respiratory Rate 18 01/07/18 15:37 Blood Pressure 103/81 H 01/07/18 15:37 O2 Sat (%) 97 01/07/18 15:37 O2 Delivery Mode Room Air Allergies/Adverse Reactions: penicillin G Allergy (Verified 01/07/18 15:37) Unknown Home Medications: Medication Instructions Recorded Insulin Detemir [Levemir Flextouch] 20 unit SQ HS 11/14/17 metFORMIN SR [Glucophage XR 750 mg 750 mg PO BID 11/14/17 (*)] Medical Decision Making Differential Diagnosis: Differential considered including but not limited to DKA, gastric paresis, bowel obstruction, gastroenteritis - Data Points Laboratory Results: Laboratory Results 01/07/18 16:22 01/07/18 16:22 01/07/18 01/07/18 01/07/18 16:22 16:22 16:22 WBC 18.19 10^3/uL H 10^3/uL (3.80-9.50) RBC 5.60 10^6/uL 10^6/uL (4.40-6.38) Hgb 17.4 g/dL g/dL (13.7-17.5) Hct 48.2 % % (40.0-51.0) MCV 86.1 fL fL (81.5-99.8) MCH 31.1 pg pg (27.9-34.1) MCHC 36.1 g/dL g/dL (32.4-36.7) RDW 12.6 % % (11.5-15.2) Plt Count 207 10^3/uL 10^3/uL (150-400) MPV 12.5 fL H fL (8.7-11.7) Neut % (Auto) 93.3 % H % (39.3-74.2) Lymph % (Auto) 4.6 % L % (15.0-45.0) [place] % (Auto) 1.5 % L % (4.5-13.0) Eos % (Auto) 0.0 % L % (0.6-7.6) Baso % (Auto) 0.2 % L % (0.3-1.7) Nucleat RBC Rel Count 0.0 % % (0.0-0.2) Absolute Neuts (auto) 16.97 10^3/uL H 10^3/uL (1.70-6.50) Absolute Lymphs (auto) 0.83 10^3/uL L 10^3/uL (1.00-3.00) Absolute Monos (auto) 0.27 10^3/uL L 10^3/uL (0.30-0.80) Absolute Eos (auto) 0.00 10^3/uL L 10^3/uL (0.03-0.40) Absolute Basos (auto) 0.04 10^3/uL 10^3/uL (0.02-0.10) Absolute Nucleated RBC 0.00 10^3/uL 10^3/uL (0-0.01) Immature Gran % 0.4 % % (0.0-1.1) Immature Gran # 0.08 10^3/uL 10^3/uL (0.00-0.10) Sodium 138 mEq/L mEq/L (135-145) Potassium 4.8 mEq/L mEq/L (3.3-5.0) Chloride 99 mEq/L mEq/L (97-110) Carbon Dioxide 17 mEq/l L mEq/l (22-31) Anion Gap 22 mEq/L H mEq/L (8-16) BUN 14 mg/dL mg/dL (7-23) Creatinine 0.8 mg/dL mg/dL (0.7-1.3) Estimated GFR > 60 Glucose 392 mg/dL H mg/dL (70-100) Calcium 10.5 mg/dL H mg/dL (8.5-10.4) Total Bilirubin 1.1 mg/dL mg/dL (0.1-1.4) Conjugated Bilirubin 0.3 mg/dL mg/dL (0.0-0.5) Unconjugated Bilirubin 0.8 mg/dL mg/dL (0.0-1.1) AST 20 IU/L IU/L (17-59) ALT 30 IU/L IU/L (21-72) Alkaline Phosphatase 102 IU/L IU/L (38-126) Creatine Kinase 41 IU/L IU/L (0-224) Total Protein 8.1 g/dL g/dL (6.3-8.2) Albumin 5.1 g/dL H g/dL (3.5-5.0) Lipase 15 IU/L L IU/L (23-300) Beta-Hydroxybutyrate 2.18 mmol/L H mmol/L (0.02-0.27) Medications Given: Promethazine HCl (Phenergan) 12.5 mg IVP Q6HRS PRN PRN Reason: Nausea/Vomiting, Can't Take PO Stop: 07/06/18 18:19 Last Admin: 01/07/18 18:40 Dose: 12.5 mg Discontinued Medications Diphenhydramine HCl (Benadryl Injection) 25 mg IVP EDNOW ONE Stop: 01/07/18 16:09 Last Admin: 01/07/18 16:30 Dose: 25 mg Haloperidol Lactate (Haldol Injection) 2.5 mg IVP EDNOW ONE Stop: 01/07/18 16:09 Last Admin: 01/07/18 16:30 Dose: 2.5 mg Sodium Chloride (Ns) 1,000 mls @ 0 mls/hr IV EDNOW ONE; Wide Open PRN Reason: Protocol Stop: 01/07/18 15:56 Last Admin: 01/07/18 16:24 Dose: 1,000 mls Ondansetron HCl (Zofran) 4 mg IVP EDNOW ONE Stop: 01/07/18 15:56 Last Admin: 01/07/18 16:25 Dose: 4 mg Departure - Departure Disposition: [facility] Clinical Impression: Intractable vomiting Qualifiers: Vomiting type: cyclical vomiting Nausea presence: with nausea Qualified Code(s) : G43.A1 - Cyclical vomiting, intractable Hyperglycemia due to type 2 diabetes mellitus Qualifiers: Diabetes mellitus skilled nursing insulin 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
[2018-01-07] MEDS ORDERED: HALOPERIDOL LACT 5 MG/ML INJ IVP ONE (16:08)
[2018-01-07 16:34] LABS: PLATELET COUNT 207 10^3/uL (150-400)
[2018-01-07 16:44] LABS: CREATINE KINASE 41 IU/L (0-224)
[2018-01-07] MEDS ORDERED: ACETAMINOPHEN 325 MG TAB PO PRN (17:50)
[2018-01-07] MEDS ORDERED: ONDANSETRON 4 MG/2 ML VIAL IVP PRN (17:50)
[2018-01-07] MEDS ORDERED: PROMETHAZINE HCL 25 MG/ML INJ IVP PRN (18:20)
[2018-01-07] MEDS ORDERED: LORazepam 2 MG/ML INJ IVP PRN (18:22)
--- NOTE | 2018-01-07 18:49 | PDGENHP ---
History and Physical - Chief Complaint vomiting - History of Present Illness 52yo M with poorly controlled type 2 diabetes and numerous hospitalization in last year for vomiting/abdominal pain presents with 3 days of non-bloody vomiting and lower abdominal pain. Has also had a few episodes of loose stools over this time. + chills. No fevers, sick contacts, recent travel, recent antibiotics. He tried taking zofran and compazine at home but was unable to tolerate PO. He says this is very similar to prior episodes of n/v. They usually last 3 days or so but this wasn't resolving so came in. In the ED, he received anti-emetics but was felt unsafe to discharge home as not taking PO. Also, his blood glucose was elevated at 392 with an elevated anion gap at 22 and decreased bicarb at 17. Mr Lilly reports to me that he hasn 't taken his insulin or metformin in 2 days because he was feeling ill. I have reviewed prior records including recent dc summary by Suki Lebron from 10/2017 obs admission. Of note, he has had 4 obs admissions and 3 inpatient stays since 11/2016 for similar issues. He's had abdominal imaging that only really shows some hepatic steatosis, an EGD (06/2017) that was normal, negative H pylori testing/biopsies, and a normal gastric emptying study (06/2017). He attributes all his symptoms to gastroparesis, which he says was diagnosed in [place] prior to coming to [place], and is actually on disability for this. History Information - Allergies/Home Medication List Allergies/Adverse Reactions: penicillin G Allergy (Verified 01/07/18 15:37) Unknown Home Medications: Insulin Detemir [Levemir Flextouch] 20 unit SQ HS 11/14/17 [Last Taken 01/05/18] metFORMIN SR [Glucophage XR 750 mg (*)] 750 mg PO BID 11/14/17 [Last Taken 01/05] I have personally reviewed and updated: family history, medical history, social history, surgical history - Past Medical History Additional medical history: type 2 diabetes (c-peptide confirms) with peripheral neuropathy and retinopathy, marijuana dependence, medication non- compliance - Surgical History Reports: no pertinent surgical hx - Family History Positive for: cancer, diabetes type II, hypertension Additional family history: Denies family hx of gastrointestinal disease - Social History Smoking Status: Never smoked Alcohol Use: None Drug Use: Marijuana (smokes >1 time/day) Additional social history: Patient is and lives with and son. On disability for gastroparesis. Review of Systems Review of Systems: ROS: 10pt was reviewed & negative except for what was stated in HPI & below Physical Exam Physical Exam: Temp Pulse Resp BP Pulse Ox 37.4 C 74 18 139/72 H 99 01/07/18 18:38 01/07/18 18:38 01/07/18 18:38 01/07/18 18:38 01/07/18 18:38 Constitutional: no apparent distress, uncomfortable Eyes: PERRL, anicteric sclera, EOMI Ears, Nose, Mouth, Throat: moist mucous membranes, hearing normal, ears appear normal, no oral mucosal ulcers Cardiovascular: regular rate and rhythym, no murmur, rub, or gallop, No edema Respiratory: no respiratory distress, no rales or rhonchi, clear to auscultation Gastrointestinal: normoactive bowel sounds, tenderness (diffuse without rebound or gaurding), No hepatosplenomegally, No distension Genitourinary: no bladder fullness, no bladder tenderness Skin: warm, normal color, no rashes or abrasions, no fluctuance, no induration, No mottled Musculoskeletal: full muscle strength, no muscle tenderness, normal joint ROM, no joint effusions Neurologic: AAOx3, CN II-XII Intact, No weakness Psychiatric: interacting appropriately, not anxious, not encephalopathic, thought process linear Lab Data & Imaging Review 01/07/18 16:22 01/07/18 16:22 WBC 18.19 10^3/uL (3.80-9.50) H 01/07/18 16:22 RBC 5.60 10^6/uL (4.40-6.38) 01/07/18 16:22 Hgb 17.4 g/dL (13.7-17.5) 01/07/18 16:22 Hct 48.2 % (40.0-51.0) 01/07/18 16:22 MCV 86.1 fL (81.5-99.8) 01/07/18 16:22 MCH 31.1 pg (27.9-34.1) 01/07/18 16:22 MCHC 36.1 g/dL (32.4-36.7) 01/07/18 16:22 RDW 12.6 % (11.5-15.2) 01/07/18 16:22 Plt Count 207 10^3/uL (150-400) 01/07/18 16:22 MPV 12.5 fL (8.7-11.7) H 01/07/18 16:22 Neut % (Auto) 93.3 % (39.3-74.2) H 01/07/18 16:22 Lymph % (Auto) 4.6 % (15.0-45.0) L 01/07/18 16:22 [place] % (Auto) 1.5 % (4.5-13.0) L 01/07/18 16: Eos % (Auto) 0.0 % (0.6-7.6) L 01/07/18 16:22 Baso % (Auto) 0.2 % (0.3-1.7) L 01/07/18 16: Nucleat RBC Rel Count 0.0 % (0.0-0.2) 01/07/18 16: Absolute Neuts (auto) 16.97 10^3/uL (1.70-6.50) H 01/07/18 16:22 Absolute Lymphs (auto) 0.83 10^3/uL (1.00-3.00) L 01/07/18 16:22 Absolute Monos (auto) 0.27 10^3/uL (0.30-0.80) L 01/07/18 16:22 Absolute Eos (auto) 0.00 10^3/uL (0.03-0.40) L 01/07/18 16:22 Absolute Basos (auto) 0.04 10^3/uL (0.02-0.10) 01/07/18 16: Absolute Nucleated RBC 0.00 10^3/uL (0-0.01) 01/07/18 16: Immature Gran % 0.4 % (0.0-1.1) 01/07/18 16: Immature Gran # 0.08 10^3/uL (0.00-0.10) 01/07/18 16:22 Puncture Site VENOUS 01/07/18 18:25 Patient Temperature 37.0 DEGREES 01/07/18 18:25 VBG pH 7.37 (7.31-7.42) 01/07/18 18:25 VBG HCO3 18 mEQ/L (22-26) L 01/07/18 18:25 VBG Total CO2 18 mEq/L (21-27) L 01/07/18 18:25 VBG O2 Saturation 85 % (65-75) H 01/07/18 18:25 VBG Base Excess -6.3 mEq/L (-2.5-2.5) L 01/07/18 18:25 Mixed VBG pCO2 31 mmHg (40-44) L 01/07/18 18:25 Mixed VBG pO2 53 mmHG (35-40) H 01/07/18 18:25 Sodium 138 mEq/L (135-145) 01/07/18 16:22 Potassium 4.8 mEq/L (3.3-5.0) 01/07/18 16:22 Chloride 99 mEq/L (97-110) 01/07/18 16:22 Carbon Dioxide 17 mEq/l (22-31) L 01/07/18 16:22 Anion Gap 22 mEq/L (8-16) H 01/07/18 16:22 BUN 14 mg/dL (7-23) 01/07/18 16:22 Creatinine 0.8 mg/dL (0.7-1.3) 01/07/18 16:22 Estimated GFR > 60 01/07/18 16:22 Glucose 392 mg/dL (70-100) H 01/07/18 16:22 Calcium 10.5 mg/dL (8.5-10.4) H 01/07/18 16:22 Total Bilirubin 1.1 mg/dL (0.1-1.4) 01/07/18 16:22 Conjugated Bilirubin 0.3 mg/dL (0.0-0.5) 01/07/18 16:22 Unconjugated Bilirubin 0.8 mg/dL (0.0-1.1) 01/07/18 16:22 AST 20 IU/L (17-59) 01/07/18 16:22 ALT 30 IU/L (21-72) 01/07/18 16:22 Alkaline Phosphatase 102 IU/L (38-126) 01/07/18 16:22 Creatine Kinase 41 IU/L (0-224) 01/07/18 16:22 Total Protein 8.1 g/dL (6.3-8.2) 01/07/18 16:22 Albumin 5.1 g/dL (3.5-5.0) H 01/07/18 16:22 Lipase 15 IU/L (23-300) L 01/07/18 16:22 Beta-Hydroxybutyrate 2.18 mmol/L (0.02-0.27) H 01/07/18 16:22 Assessment & Plan Assessment: 52yo M with poorly controlled type 2 diabetes and numerous hospitalization in last year for vomiting/abdominal pain presents with 3 days of intractable vomiting and abdominal pain found to have metabolic acidosis. Plan: #Anion gap metabolic acidosis: Suspect starvation ketosis. He is not acidemic so not DKA. Will give him IVF and subQ insulin. #Acute emesis, abdominal pain: Not septic, LFTs/lipase normal. Previous extensive work up relatively unremarkable. He attributes to gastroparesis but had normal gastric emptying study recently. Instead, I suspect this is due to cannabis hyperemesis. Will treat with IV anti-emetics, pain medications, IVF. Discussed MJ cessation. Of note, he's had tardive dyskinesia with reglan in past. #Hyperglycemia with T2DM: A1c 12% in June. Hasn't taken insulin in last 2 days. As above, not in DKA. Will start long-acting insulin (glargine 20) and place on SSI. Holding metformin with acidosis although unlikely to be contributing. #Leukocytosis: Reactive in setting of above. Recheck in AM. #Marijuana dependence: I think this is root of above issues. He would likely benefit from resources on quitting or cognitive behavioral therapy. Diet: carb controlled VTE ppx: low risk, SCDs while in bed Code: full Dispo: admit under observation for management of above
[2018-01-07] MEDS ORDERED: D50W 25 GM/50 ML SYR IVP PRN (19:01)
[2018-01-07] MEDS: NS 1,000 ML IV SCH (19:34)
[2018-01-07] MEDS: ONDANSETRON DISINTEGRATING 4 MG TAB PO PRN (19:44)
[2018-01-07] MEDS: INSULIN GLARGINE 100 UNITS/ML UNIT SC SCH (21:12)
[2018-01-07] MEDS: PROMETHAZINE HCL 25 MG/ML INJ IVP PRN (23:18)
[2018-01-08 01:14] LABS: PLATELET COUNT 158 10^3/uL (150-400)
[2018-01-08] MEDS: HYDROmorphONE/DILAUDID 1 MG/ML INJ IVP PRN ×3 (01:37→19:46)
[2018-01-08] MEDS: NS 1,000 ML IV SCH (04:56)
[2018-01-08] MEDS: INSULIN LISPRO 100 UNIT/ML SC SCH ×3 (09:00→16:52)
--- NOTE | 2018-01-08 09:13 | ASMTCMCOM ---
CM Note CM Note Notes: 52yr old male admitted for N/V, Hyperglycemia. He has had 4 OBS admissions and 3 in-pt admits since 12/09 for this dx. Patient has a Hx of peripheral neuropathy, DM-2 and daily THC use. MD thinking that the THC might be the cause of dx. Patient is on disability for above, lives with his and son. May not have discharge needs. Date Signed: 01/08/2018 09:13 AM Electronically Signed By:Jocelyn Gustafson LCSW
[2018-01-08] MEDS: ONDANSETRON DISINTEGRATING 4 MG TAB PO PRN ×2 (09:27→16:52)
--- NOTE | 2018-01-08 11:15 | ASMTCMCOM ---
CM Note CM Note Notes: Patient given educational material on THC and cyclical vomitting. Date Signed: 01/08/2018 11:14 AM Electronically Signed By:Jocelyn Gustafson LCSW
--- NOTE | 2018-01-08 11:23 | HOSPPROG ---
Hospitalist Progress Note Assessment/Plan: 52yo M with poorly controlled type 2 diabetes and numerous hospitalization in last year for vomiting/abdominal pain presents with 3 days of intractable vomiting and abdominal pain found to have metabolic acidosis. First encounter, chart reviewed. Plan: #Anion gap metabolic acidosis: -Suspect starvation ketosis. He is not acidemic so not DKA. -Will give him IVF and subQ insulin. #Acute emesis, abdominal pain: -Not septic, LFTs/lipase normal. -Previous extensive work up relatively unremarkable. He attributes to gastroparesis but had normal gastric emptying study recently. -Instead, this is likely due to cannabis hyperemesis. -Will treat with IV anti-emetics, pain medications, IVF. -Discussed MJ cessation. Of note, he's had tardive dyskinesia with reglan in past. #Hyperglycemia with T2DM: -A1c 12% in June. Hasn't taken insulin in last 2 days. -As above, not in DKA. -Will start long-acting insulin (glargine 20) and place on SSI. -Holding metformin with acidosis although unlikely to be contributing. #Leukocytosis: -Reactive in setting of above. -Recheck in AM. #Marijuana dependence: -I think this is root of above issues. -He would likely benefit from resources on quitting or cognitive behavioral therapy. Diet: carb controlled VTE ppx: low risk, SCDs while in bed Code: full Dispo: change to inpatient status. unable to tolerate PO with cont vomitting. labs in am Subjective: Still throwing up. Tired. Not feeling well. Objective: Vital Signs Temp Pulse Resp BP Pulse Ox 37.2 C 64 12 133/70 H 98 01/08/18 07:52 01/08/18 07:52 01/08/18 07:52 01/08/18 07:52 01/08/18 07:52 Laboratory Results 01/08/18 01:00 01/08/18 01:00 01/07/18 01/08/18 01/09/18 05:59 05:59 05:59 Intake Total 3091 750 Output Total 1475 800 Balance 1616 -50 - Physical Exam Constitutional: no apparent distress, appears nourished, not in pain Eyes: PERRL, anicteric sclera, EOMI Ears, Nose, Mouth, Throat: moist mucous membranes, hearing normal, ears appear normal Cardiovascular: regular rate and rhythym, No JVD, No edema Respiratory: no respiratory distress, no rales or rhonchi, reduced air movement Gastrointestinal: distension, No tenderness, No ascites, No guarding Skin: warm, normal color, No mottled Musculoskeletal: normal joint ROM, no joint effusions, generalized weakness Neurologic: AAOx3 Psychiatric: not anxious, not encephalopathic, thought process linear, poor insight ICD10 Worksheet Patient Problems: Problems Problem Status Onset Intractable vomiting Acute Diabetes Acute Cyclic vomiting syndrome Acute Dehydration Acute Gastroparesis Acute Hyperglycemia Acute Acidosis Acute Diabetic gastroparesis Acute Hyperglycemia due to type 2 diabetes mellitus Acute Intractable nausea and vomiting Acute
[2018-01-08] MEDS: oxyCODONE IR 5 MG TAB PO PRN (12:58)
--- NOTE | 2018-01-08 15:00 | PDMN ---
Medical Necessity Medical necessity: [facility] M130 Diabetes: 52 y/o w/ vomiting and abd pain due to metabolic acidosis, suspect starvation ketosis, leukocytosis, IV fluids and SQ insulin started. Today pt still w/ persistent vomiting, not feeling well, requires a 2nd MN for ongoing IVF, IV opioids, IV antiemetics, repeat labs, acidosis correction and glucose management. Did experience hypotension middle of night 77/48. Switch to IP status 01/08/18 @1751 per HOBBER order.
[2018-01-08] MEDS: PROMETHAZINE HCL 25 MG/ML INJ IVP PRN (19:25)
[2018-01-08] MEDS: INSULIN GLARGINE 100 UNITS/ML UNIT SC SCH (22:21)
[2018-01-08] MEDS ORDERED: PROCHLORPERAZINE MALEATE 10 MG TAB PO ONE (22:35)
[2018-01-09] MEDS: ONDANSETRON DISINTEGRATING 4 MG TAB PO PRN ×2 (00:53→15:19)
[2018-01-09] MEDS: oxyCODONE IR 5 MG TAB PO PRN ×3 (00:53→20:03)
[2018-01-09] MEDS: NS 1,000 ML IV SCH (03:30)
[2018-01-09] MEDS: PROMETHAZINE HCL 25 MG/ML INJ IVP PRN (03:42)
[2018-01-09] MEDS: INSULIN LISPRO 100 UNIT/ML SC SCH ×3 (08:41→16:08)
--- NOTE | 2018-01-09 08:58 | HOSPPROG ---
Hospitalist Progress Note Assessment/Plan: 52yo M with poorly controlled type 2 diabetes and numerous hospitalization in last year for vomiting/abdominal pain presents with 3 days of intractable vomiting and abdominal pain found to have metabolic acidosis. First encounter, chart reviewed. *concern for hyperemesis syndrome -antiemetics -cessation of Cannibis recommended -he has underlying gastroparesis he believes is causing this -he isn't vomiting this morning, will dc fluids and see how he does *Anion gap metabolic acidosis: -improving *abdominal pain -resolving #Hyperglycemia with T2DM: -A1c 12% in June. Hasn't taken insulin in last 2 days prior to admission -long-acting insulin (glargine 20) and place on SSI. -Holding metformin with acidosis although unlikely to be contributing. #Leukocytosis: -Reactive in setting of above. -still elevated #Marijuana dependence: . -He would likely benefit from resources on quitting or cognitive behavioral therapy. #plan: will see how Felipe is this afternoon, if eating and drinking, will dc Subjective: Felipe is feeling better, abdominal pain resolving. Objective: Vital Signs Temp Pulse Resp BP Pulse Ox 37.2 C 77 16 101/52 L 96 01/09/18 08:00 01/09/18 08:00 01/09/18 08:00 01/09/18 08:00 01/09/18 08:00 Laboratory Results 01/09/18 04:36 01/09/18 04:36 01/08/18 01/09/18 01/10/18 05:59 05:59 05:59 Intake Total 2350 Output Total 2625 Balance -275 - Physical Exam Constitutional: no apparent distress, appears nourished Eyes: PERRL Ears, Nose, Mouth, Throat: hearing normal Cardiovascular: regular rate and rhythym Respiratory: no respiratory distress Gastrointestinal: normoactive bowel sounds, soft, non-tender abdomen Skin: warm Musculoskeletal: full muscle strength Neurologic: AAOx3 Psychiatric: interacting appropriately ICD10 Worksheet Patient Problems: Problems Problem Status Onset Hyperglycemia due to type 2 diabetes mellitus Acute Intractable vomiting Acute Acidosis Acute Cyclic vomiting syndrome Acute Dehydration Acute Diabetes Acute Diabetic gastroparesis Acute Gastroparesis Acute Hyperglycemia Acute Intractable nausea and vomiting Acute
[2018-01-09] MEDS: ONDANSETRON 4 MG/2 ML VIAL IVP PRN (20:03)
[2018-01-09] MEDS: INSULIN GLARGINE 100 UNITS/ML UNIT SC SCH (21:35)
[2018-01-10] MEDS: PROMETHAZINE HCL 25 MG/ML INJ IVP PRN ×3 (01:24→22:01)
[2018-01-10] MEDS: ONDANSETRON 4 MG/2 ML VIAL IVP PRN (04:33)
[2018-01-10 05:51] LABS: PLATELET COUNT 145 10^3/uL (150-400)
[2018-01-10] MEDS ORDERED: PROTOCOL POTASSIUM 1 DOSE MISC PRN (07:33)
[2018-01-10] MEDS: ONDANSETRON DISINTEGRATING 4 MG TAB PO PRN (09:03)
[2018-01-10] MEDS: HYDROmorphone HCL 0.5 MG/0.5 ML SYR IVP PRN ×2 (09:10→22:00)
[2018-01-10] MEDS: INSULIN LISPRO 100 UNIT/ML SC SCH ×3 (09:11→18:20)
[2018-01-10] MEDS: POTASSIUM Cl (KCl) 100 ML IV SCH ×4 (10:16→14:26)
--- NOTE | 2018-01-10 10:47 | HOSPPROG ---
Hospitalist Progress Note Assessment/Plan: 52yo M with poorly controlled type 2 diabetes and numerous hospitalization in last year for vomiting/abdominal pain presents with 3 days of intractable vomiting and abdominal pain found to have metabolic acidosis. *concern for hyperemesis syndrome -antiemetics -cessation of Cannibis recommended -he has underlying gastroparesis -had vomiting during the night and is belching frequently -will get an abdominal x ray for further evaluation *Anion gap metabolic acidosis: -improving *abdominal pain -has very quiet bowel sounds -will f/u with the x ray #Hyperglycemia with T2DM: -A1c 12% in June. Hasn't taken insulin in last 2 days prior to admission -long-acting insulin (glargine 20) and place on SSI. -Holding metformin with acidosis #Leukocytosis: -much improved #hypokalemia -protocol #Marijuana dependence: . -He would likely benefit from resources on quitting or cognitive behavioral therapy. -he is aware this is an issue, have had multiple discussions #plan: increase IV fluids, add K protocol, trial of kpad, if not much improved by tomorrow could consider further imaging, will check a lipase level and well as CMP in a.m. Subjective: Felipe has had multiple episodes of vomiting during the night. Objective: Vital Signs Temp Pulse Resp BP Pulse Ox 37.4 C 82 16 132/77 H 97 01/10/18 03:51 01/10/18 03:51 01/10/18 03:51 01/10/18 03:51 01/10/18 03:51 Laboratory Results 01/10/18 05:43 01/10/18 05:43 01/09/18 01/10/18 01/11/18 05:59 05:59 05:59 Intake Total 2350 650 500 Output Total 2625 250 Balance -275 400 500 - Physical Exam Constitutional: uncomfortable Eyes: PERRL Ears, Nose, Mouth, Throat: hearing normal Cardiovascular: regular rate and rhythym Respiratory: no respiratory distress Gastrointestinal: No normoactive bowel sounds (hypoactive, very few bowel sounds ), No guarding, No rebound Skin: warm Musculoskeletal: full muscle strength Neurologic: AAOx3 Psychiatric: interacting appropriately ICD10 Worksheet Patient Problems: Problems Problem Status Onset Hyperglycemia due to type 2 diabetes mellitus Acute Intractable vomiting Acute Acidosis Acute Cyclic vomiting syndrome Acute Dehydration Acute Diabetes Acute Diabetic gastroparesis Acute Gastroparesis Acute Hyperglycemia Acute Intractable nausea and vomiting Acute
[2018-01-10] MEDS: NS 1,000 ML IV SCH ×2 (11:56→18:11)
[2018-01-10] MEDS ORDERED: BISACODYL 10 MG SUPP PR ONE ×2 (14:44→17:15)
[2018-01-10] MEDS ORDERED: POTASSIUM CL 20 MEQ TAB PO ONE (20:46)
[2018-01-10] MEDS: INSULIN GLARGINE 100 UNITS/ML UNIT SC SCH (22:00)
[2018-01-11] MEDS: NS 1,000 ML IV SCH (02:33)
[2018-01-11 07:35] VITALS: BP 128/80
[2018-01-11] MEDS: INSULIN LISPRO 100 UNIT/ML SC SCH ×2 (08:36→11:58)
[2018-01-11] MEDS ORDERED: MAGNESIUM CITRATE 300 ML BOTTLE PO ONE (11:04)
--- NOTE | 2018-01-11 13:29 | ASMTCMCOM ---
CM Note CM Note Notes: Pt admitted for cyclic vomiting, he has a dependence on marijuana which may be causing health issues. CM gave pt resources on drug dependence and cyclical vomiting. Anticipate he will dc home w/support of when medically stable. CM available for any changes. DC Plan: Independent Date Signed: 01/11/2018 01:03 PM Electronically Signed By:Xochitl Ochoa RN
--- NOTE | 2018-01-11 17:28 | PDDCSUM ---
Discharge Summary Discharge Summary: DISCHARGE SUMMARY FOLLOW-UP ITEMS: Initiate mealtime insulin under the direction of primary care provider after glucometer teaching DATE OF ADMISSION: 01/07/2018 DATE OF DISCHARGE: 01/11/2018 DISCHARGE DIAGNOSES: 1. Acute metabolic acidosis 2. Suspected acute on chronic gastroparesis 3. Acute hyperglycemia with uncontrolled diabetes mellitus type 2 4. Acute hypokalemia 5. Possible cannabis hyperemesis syndrome CONSULTATIONS: None PROCEDURES / IMAGING: Abdominal x-ray demonstrating jejunal bowel gas pattern potentially consistent with enteritis versus ileus CHIEF COMPLAINT: Acute abdominal pain nausea and vomiting SUBJECTIVE: Patient is feeling well at time discharge, he is eating and drinking solids and liquids, he has had a bowel movement, he feels safe for discharge home PHYSICAL EXAM ON DISCHARGE: Systolic blood pressure 110-140, heart 60-80, afebrile overnight, satting well on room air, alert awake oriented x3, bowel sounds are hypoactive, abdomen is moderately distended, lung sounds are clear to auscultation bilaterally, no lower extremity edema, heart rhythm is regular LABS ON DISCHARGE: Potassium 3.7, serum bicarbonate 25, creatinine 0.6, liver panel unremarkable, cortisol Poll[place] HOSPITAL COURSE BY PROBLEM: The patient presented with acute abdominal pain, nausea and vomiting most likely secondary to a combination of acute on chronic gastro paresis with subsequent constipation as well as potential contribution of cannabis hyperemesis syndrome. The patient had not had a bowel movement for several days , and during his hospitalization, he struggled to move his bowels. The patient was placed on bowel rest, received IV fluids and pain medications for supportive care. He did not receive Reglan secondary to adverse neuromuscular effects in the past. He did receive magnesium citrate as well as a bowel regimen, and on the day of discharge, he successfully moved his bowels. After moving his bowels, the patient felt quite well. I recommended to him that he take a scheduled stool softener as well as as needed laxatives, and to have these medications on hand at home, to prevent exacerbations of constipation in the setting of suspected diabetic related gastroparesis. Regarding the patient' s diabetic control, the patient had notable hyperglycemia on presentation as well as a positive beta hydroxybutyrate level, most likely secondary to his poor oral tolerance. He was placed on long-acting insulin and insulin sliding scale, and I counseled the patient prior to discharge about the value of initiating mealtime insulin through his primary care provider office in the near future. He reports that he needs to receive additional glucometer and mealtime insulin education prior to initiating, and he will do this through his primary care provider office. We also recommended that he discontinue his home dosage of metformin, given that it may be contributing to metabolic acidosis which was present on admission. For this issue, the patient received IV fluids as well as electrolyte protocol for his acute hypokalemia. DISCHARGE MEDICATIONS: Please see official discharge medication reconciliation sheet in chart , discontinue metformin, continue Lantus, recommend outpatient insulin sliding scale, initiate scheduled Senokot S twice daily, milk of magnesium as needed. DISCHARGE INSTRUCTIONS: Please follow up with the primary care provider within 1 week to discuss the above. TIME SPENT: Greater than 30 minutes were spent on direct patient care, as well as discharge planning and preparation.
== END 2018-01-11 16:47 | disposition home or self-care (01) | DRG 74 ==
LOC: F3E 18:30 → OBSVTOIN 01-08 11:23
PROVIDERS: ADMIT Internal Medicine; ATTEND Internal Medicine
DX: E11.43 Type 2 diabetes mellitus with diabetic autonomic (poly)neuropathy (principal); E87.2 Acidosis; K31.84 Gastroparesis; T38.3X6A Underdosing of insulin and oral hypoglycemic [antidiabetic] drugs, initial encounter; E11.65 Type 2 diabetes mellitus with hyperglycemia; E86.9 Volume depletion, unspecified; E87.6 Hypokalemia; F12.288 Cannabis dependence with other cannabis-induced disorder; R11.10 Vomiting, unspecified; E11.319 Type 2 diabetes mellitus with unspecified diabetic retinopathy without macular edema; I10 Essential (primary) hypertension; Z79.84 Long term (current) use of oral hypoglycemic drugs
CPT/HCPCS: 96374; G0378; J1170; J1200; J1630; J1815; J2060; J2405; J2550; J3480

== ENCOUNTER 2018-02-12 10:10 | Observation (INO) | payer OTHER ==
[2018-02-12] MEDS ORDERED: NS 1,000 ML IV ONE (10:29)
[2018-02-12] MEDS ORDERED: HALOPERIDOL LACT 5 MG/ML INJ IVP ONE ×2 (10:30→11:07)
[2018-02-12] MEDS ORDERED: PROMETHAZINE HCL 25 MG/ML INJ IVP ONE (10:30)
--- NOTE | 2018-02-12 10:31 | EDPHY ---
H & P Stated Complaint: N/V gen abd clarke since last night- Time Seen by Provider: 02/12/18 10:27 HPI/ROS: HPI: This is a 52-year-old male who presents with Chief Complaint: N/V gen abd clarke since last night- Location: GI Quality: Nausea, vomiting Duration: Since last night Signs and Symptoms: no fever, + nausea, + vomiting, no hematemesis, no blood in stool, no abdominal bloating, no diarrhea, no back pain, no urinary symptoms, no testicular/groin pain, no indigestion, no chest pain, no shortness of breath Timing: Acute on chronic Severity: Moderate to severe Context: Patient has a history of type 2 diabetes mellitus, on Levemir, that is poorly controlled and gastroparesis which he is on disability for presents with acute on chronic nausea and vomiting that started last night accompanied by generalized abdominal pain. Patient's blood glucose this morning was 160. Once patient was roomed nurse walked into the room and saw patient sticking his finger down his throat to induce vomiting. Chart review shows that he had an EGD June 2017 that was normal, negative for H pylori, June 2017 had normal gastric emptying study. Chart review shows last admission 01/08/2018. Modifying Factors: None Comment: ROS: A comprehensive 10 system review of systems is otherwise negative aside from elements mentioned in the history of present illness. MEDICAL/SURGICAL/SOCIAL HISTORY: Medical history: GASTROPARISIS r/t DM 2 poorly controlled, periph neuropathy Surgical history: Denies Social history: Never smoked. Family history noncontributory. CONSTITUTIONAL: Lying on left side, flat affect, poor interaction, awake and alert, no obvious distress HEENT: Atraumatic and normocephalic, PERRL, EOMI. Nares patent; no rhinorrhea; no nasal mucosal edema. Tympanic membranes clear. Oropharynx clear, no exudate and moist pink mucosa. Airway patent. No lymphadenopathy. No meningismus. Cardiovascular: Normal S1/S2, regular rate, regular rhythm, without murmur rub or gallop. PULMONARY/CHEST: Symmetrical and nontender. Clear to auscultation bilaterally. Good air movement. No accessory muscle usage. ABDOMEN: Soft, nondistended, moderate generalized tenderness, no rebound, no guarding, no peritoneal signs, no masses or organomegaly. No CVAT. EXTREMITIES: 2/2 pulses, strength 5/5, no deformities, no clubbing, no cyanosis or edema. NEUROLOGICAL: no focal neuro deficits. GCS 15. SKIN: Warm and dry, no erythema. no rash. Good capillary refill. Source: Patient, Old records Exam Limitations: No limitations - Medical/Surgical History Hx Asthma: No Hx Chronic Respiratory Disease: No Hx Diabetes: Yes Hx Cardiac Disease: No Hx Renal Disease: No Hx Cirrhosis: No Hx Alcoholism: No Hx HIV/AIDS: No Hx Splenectomy or Spleen Trauma: No Other PMH: GASTROPARISIS r/t DM 2 poorly controlled, periph neuropathy - Social History Smoking Status: Never smoked Constitutional: Initial Vital Signs Temperature (C) 36.8 C 02/12/18 10:15 Heart Rate 91 02/12/18 10:15 Respiratory Rate 20 02/12/18 10:15 Blood Pressure 137/85 H 02/12/18 10:15 O2 Sat (%) 97 02/12/18 10:15 O2 Delivery Mode Room Air Allergies/Adverse Reactions: penicillin G Allergy (Verified 01/07/18 15:37) Unknown Home Medications: Medication Instructions Recorded Levemir 02/12/18 Meclizine HCl 02/12/18 Medical Decision Making ED Course/Re-evaluation: Vital signs reviewed and stable upon arrival. No systemic signs. Laboratory studies, IV fluids, IV medications ordered, IV Haldol 5 mg and 1 L normal saline Every time patient has been to the emergency room he has required admission. I suspect this to be the same. 1100: Notified by nursing that date her having difficulty establishing peripheral IV access. EJ attempted. Labs reviewed and show serum glucose of 324, creatinine 0.6, pH 7.48, beta hydroxy 0.69, bicarb 20, anion gap is 12, LFTs within normal limits ED decision to consult for admission for hyperglycemia, gastroparesis, intractable nausea and vomiting and type 2 diabetic. No signs of DKA. Spoke Lali who kindly agrees to admit patient to Dr. Whatley. Urine, anion gap, bicarb pending at time of consult. This patient was seen under the supervision of my secondary supervising physician. I evaluated care for this patient independently. Discussed this patient with Dr. Ruiz. Differential Diagnosis: Abdominal pain including but not limited to appendicitis, cholecystitis, gastritis and urinary tract infection. - Data Points Laboratory Results: Laboratory Results 02/12/18 11:15 02/12/18 02/12/18 02/12/18 11:15 11:15 11:06 WBC 18.28 10^3/uL H 10^3/uL (3.80-9.50) RBC 5.52 10^6/uL 10^6/uL (4.40-6.38) Hgb 16.8 g/dL g/dL (13.7-17.5) POC Hgb 17.0 gm/dL gm/dL (13.7-17.5) Hct 48.0 % % (40.0-51.0) POC Hct 50 % % (40-51) MCV 87.0 fL fL (81.5-99.8) MCH 30.4 pg pg (27.9-34.1) MCHC 35.0 g/dL g/dL (32.4-36.7) RDW 12.6 % % (11.5-15.2) Plt Count 211 10^3/uL 10^3/uL (150-400) MPV 11.8 fL H fL (8.7-11.7) Neut % (Auto) 86.2 % H % (39.3-74.2) Lymph % (Auto) 8.3 % L % (15.0-45.0) Lake % (Auto) 4.3 % L % (4.5-13.0) Eos % (Auto) 0.1 % L % (0.6-7.6) Baso % (Auto) 0.4 % % (0.3-1.7) Nucleat RBC Rel Count 0.0 % % (0.0-0.2) Absolute Neuts (auto) 15.77 10^3/uL H 10^3/uL (1.70-6.50) Absolute Lymphs (auto) 1.52 10^3/uL 10^3/uL (1.00-3.00) Absolute Monos (auto) 0.78 10^3/uL 10^3/uL (0.30-0.80) Absolute Eos (auto) 0.01 10^3/uL L 10^3/uL (0.03-0.40) Absolute Basos (auto) 0.07 10^3/uL 10^3/uL (0.02-0.10) Absolute Nucleated RBC 0.00 10^3/uL 10^3/uL (0-0.01) Immature Gran % 0.7 % % (0.0-1.1) Immature Gran # 0.13 10^3/uL H 10^3/uL (0.00-0.10) VBG pH POC Sodium 142 mEq/L mEq/L (135-145) POC Potassium 4.4 mEq/L mEq/L (3.3-5.0) POC Chloride 106 mEq/L mEq/L (97-110) POC BUN 13 mg/dL mg/dL (7-23) POC Creatinine 0.6 mg/dL L mg/dL (0.7-1.3) POC Glucose 324 mg/dL H mg/dL (70-100) Magnesium 1.6 mg/dL mg/dL (1.6-2.3) Beta-Hydroxybutyrate 0.69 mmol/L H mmol/L (0.02-0.27) 02/12/18 02/12/18 11:00 11:00 WBC REJ RBC REJ Hgb REJ POC Hgb Hct REJ POC Hct MCV REJ MCH REJ MCHC REJ RDW REJ Plt Count REJ MPV REJ Neut % (Auto) REJ Lymph % (Auto) REJ Lake % (Auto) REJ Eos % (Auto) REJ Baso % (Auto) REJ Nucleat RBC Rel Count REJ Absolute Neuts (auto) REJ Absolute Lymphs (auto) REJ Absolute Monos (auto) REJ Absolute Eos (auto) REJ Absolute Basos (auto) REJ Absolute Nucleated RBC REJ Immature Gran % REJ Immature Gran # REJ VBG pH 7.48 H (7.31-7.42) POC Sodium POC Potassium POC Chloride POC BUN POC Creatinine POC Glucose Magnesium Beta-Hydroxybutyrate Medications Given: Discontinued Medications Diphenhydramine HCl (Benadryl Injection) 50 mg IVP EDNOW ONE Stop: 02/12/18 10:31 Last Admin: 02/12/18 11:23 Dose: 50 mg Haloperidol Lactate (Haldol Injection) 2.5 mg IVP EDNOW ONE Stop: 02/12/18 10:31 Last Admin: 02/12/18 11:34 Dose: Not Given Haloperidol Lactate (Haldol Injection) 5 mg IVP EDNOW ONE Stop: 02/12/18 11:08 Last Admin: 02/12/18 11:23 Dose: 5 mg Sodium Chloride (Ns) 1,000 mls @ 1,000 mls/hr IV EDNOW ONE PRN Reason: Protocol Stop: 02/12/18 11:28 Last Admin: 02/12/18 11:23 Dose: 1,000 mls Promethazine HCl (Phenergan) 12.5 mg IVP ONCE ONE Stop: 02/12/18 10:31 Last Admin: 02/12/18 11:23 Dose: 12.5 mg Point of Care Test Results: Chemistry 02/12/18 11:06 POC Sodium 142 mEq/L mEq/L (135-145) POC Potassium 4.4 mEq/L mEq/L (3.3-5.0) POC Chloride 106 mEq/L mEq/L (97-110) POC BUN 13 mg/dL mg/dL (7-23) POC Creatinine 0.6 mg/dL L mg/dL (0.7-1.3) POC Glucose 324 mg/dL H mg/dL (70-100) ISTAT H&H 02/12/18 11:06 POC Hgb 17.0 gm/dL gm/dL (13.7-17.5) POC Hct 50 % % (40-51) Departure - Departure Disposition: [facility] In[facility] Acute Clinical Impression: Gastroparesis due to DM Hyperglycemia due to type 2 diabetes mellitus Qualifiers: Diabetes mellitus longterm insulin use: 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
[2018-02-12 11:27] LABS: PLATELET COUNT 211 10^3/uL (150-400)
--- NOTE | 2018-02-12 14:34 | ASMTCMCOM ---
CM Note CM Note Notes: Pt presented to the ED through triage for N/V and abdominal pain. Pt accompanied by his , Nayely. Pt admitted for gastroparesis, intractable N/V and hyperglycemia due to poorly controlled T2DM. Pt has a history of ED visits and admission for similar symptoms/reasons. This is the pt's 5th admission in 2018 for same reasons. Pts most recently admission was 01/08-01/11/18. Pt has a history of daily THC use and per past admission notes he has been provided education and information on Cyclic Vomiting Syndrome as this is suspected to be a contributing factor to his ongoing symptoms. Pt has a history of taking frequent and numerous hot showers, which is a common way for CVS sufferers to relieve their symptoms. Pt also has a history of sticking his fingers down his throat to induce vomiting. Pt states his PCP is Shannan Seaman at [facility]. Pt reports he has all of the medication and BGL monitoring supplies he needs. Per past admissions notes, pt has also been provided education by [facility] re:carbohydrate counting and diabetic teaching kit. Pt states that when he is not experiencing an acute N/V episode he is normally able to live a functional and independent life. Exact DC needs TBD but anticipate pt to DC home w/ and followup w/PCP. Consider requesting a Behavioral Health RN consult re:pt's THC and possible CVS. CM to follow. Date Signed: 02/12/2018 02:34 PM Electronically Signed By:Sudha Cha RN
[2018-02-12] MEDS ORDERED: ACETAMINOPHEN 325 MG TAB PO PRN (16:21)
[2018-02-12] MEDS ORDERED: ONDANSETRON 4 MG/2 ML VIAL IVP PRN (16:21)
[2018-02-12] MEDS ORDERED: ONDANSETRON DISINTEGRATING 4 MG TAB PO PRN (16:21)
[2018-02-12] MEDS ORDERED: PROCHLORPERAZINE MALEATE 10 MG TAB PO PRN (16:24)
[2018-02-12] MEDS ORDERED: D50W 25 GM/50 ML SYR IVP PRN (16:25)
[2018-02-12] MEDS ORDERED: INSULIN LISPRO 100 UNIT/ML SC PRN (16:25)
--- NOTE | 2018-02-12 16:26 | PDGENHP ---
History and Physical History and Physical: Chief complaint: Nausea and vomiting and abdominal pain History of present illness: The patient is a 52-year-old male with a history diabetic gastroparesis and frequent hospitalizations who returns for intractable nausea, vomiting, and crampy abdominal pain for 2 days. This morning, he also had diarrhea characterized as liquid stool. He believes this is from his gastroparesis, which has caused him to be hospitalized frequently over the years. Severity of pain fluctuates, but is maximum severity 8/10. He says his blood sugar has been controlled better lately in tends to run in the 150s in the morning. He has not checked his blood sugar in the last couple days since he has been feeling ill. Nothing seems to make him feel better or worse. Typically he responds to IV fluids and "IV compazine". Past medical history: Diabetes mellitus with peripheral neuropathy and retinopathy and gastroparesis, medication noncompliance Past surgical history: None. Medications: Levemir insulin -18 units twice a day. Novolin sliding scale. Allergies: Penicillin. Social history: Uses marijuana. Denies alcohol or smoking. , lives with . Family history: Cancer, diabetes, hypertension. Review of systems: 10 point review of systems was conducted and is negative except per HPI Physical exam: Vitals: Reviewed General: The patient is a male who is alert and in no acute distress. HEENT: normocephalic, extraocular movements intact, conjunctivae clear, no lesions on face. Nares and oral mucosa pink and moist. Neck: trachea midline, no visible masses, no external lesions. CV: +S1/S2, RRR, no MRG. Resp: unlabored, CTAB no RRW. Abd: soft and nondistended. Bowel sounds present. Mild tenderness throughout. Musculoskeletal: Normal muscle tone and bulk. Neuro: cranial nerves II XII grossly intact. Intact gross motor and sensory function. Psych: Irritable mood. Appropriate affect. Skin: no pallor. Labs: WBC 18, hemoglobin 16, platelets 211, blood pH 7.48, sodium 139 potassium 4.4 chloride 107 CO2 20 BUN 12 creatinine 0.7 glucose 303, beta hydroxybutyrate 0.65 Impression and plan: Intractable nausea and vomiting Diarrhea Abdominal pain Leukocytosis -likely 2/2 infectious gastroenteritis, which is usually viral or toxin induced. Less likely flare of gastroparesis. -IVF, antiemetics, analgesics. -Clear liquid diet, ADAT. DM w/ complications -Continue home doses of insulin. Adjust in AM if needed. -Hypoglycemia protocol. 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 -Code status - full. Observation status - if pt improves and tolerates po, may DC to home in AM.
[2018-02-12] MEDS ORDERED: NS 1,000 ML IV SCH (16:30)
[2018-02-12] MEDS: oxyCODONE IR 5 MG TAB PO PRN (17:56)
[2018-02-12] MEDS: PROMETHAZINE HCL 25 MG TAB PO PRN (17:57)
[2018-02-12] MEDS: INSULIN GLARGINE 100 UNITS/ML UNIT SC SCH (20:45)
[2018-02-12] MEDS ORDERED: INSULIN DETEMIR 18 UNIT SQ SCH (21:00)
[2018-02-13] MEDS: oxyCODONE IR 5 MG TAB PO PRN (02:37)
[2018-02-13] MEDS: PROMETHAZINE HCL 25 MG TAB PO PRN (02:38)
[2018-02-13] MEDS: INSULIN GLARGINE 100 UNITS/ML UNIT SC SCH (08:52)
[2018-02-13] MEDS ORDERED: MAGNESIUM SULF 2 GM/WATER 50 ML IV ONE (10:18)
[2018-02-13 10:58] LABS: PLATELET COUNT 173 10^3/uL (150-400)
--- NOTE | 2018-02-13 13:40 | PDDCSUM ---
Discharge Summary Discharge Summary: Date of Admission: February 12, 2018 Date of Discharge: February 13, 2018 Discharge Diagnoses: Acute gastroenteritis, resolved Intractable nausea, vomiting, diarrhea-resolved Gastroparesis Diabetes mellitus with complications Admission Diagnoses: Intractable nausea and vomiting Diarrhea Gastroparesis Diabetes mellitus with complications Consultants: None. Hospital Course: The patient is a 52-year-old male with a past medical history of diabetes mellitus resulting in gastroparesis as well as a history of frequent hospitalizations for intractable nausea and vomiting who was admitted for similar recurrent symptoms. He was experiencing nausea, vomiting, and diarrhea for about 2 days prior to admission. Patient was rehydrated and given IV antiemetics and pain medication. He felt much better the next day and was discharged home with instructions to follow up with his outpatient PCP. Physical Exam: General: The patient is a male who is alert and in no acute distress. HEENT: normocephalic, extraocular movements intact, conjunctivae clear, no lesions on face. Nares and oral mucosa pink and moist. Neck: trachea midline, no visible masses, no external lesions. Resp: unlabored breathing. Abd: soft and nondistended. Musculoskeletal: Normal muscle tone and bulk Neuro: cranial nerves II XII grossly intact. Intact gross motor and sensory function. Psych: appropriate mood/affect. Skin: no pallor. Condition: Stable. Discharged to: Home. Pertinent tests/labs/imaging: No imaging performed. Medications: Please see med rec form. No new medications given. Home medications resumed. Special instructions: Return to ED if symptoms worsen. Follow up: Follow up with PCP in 1-2 weeks.
--- NOTE | 2018-02-13 14:06 | ASMTCMCOM ---
CM Note CM Note Notes: CM spoke to ANGEL Norman. Pt will d/c without any needs. CM available for changes. Plan: Independent Date Signed: 02/13/2018 02:05 PM Electronically Signed By:WILNER Smith
[2018-02-13 15:01] VITALS: BP 129/91
[2018-02-14] MEDS ORDERED: MAGNESIUM OXIDE 400 MG TAB PO SCH (09:00)
== END 2018-02-13 16:35 | disposition home or self-care (01) ==
LOC: INTOOBSV 11:55 → F3E 12:55
PROVIDERS: ADMIT Internal Medicine; ATTEND Internal Medicine
DX: K52.9 Noninfective gastroenteritis and colitis, unspecified (principal); K31.84 Gastroparesis; R11.2 Nausea with vomiting, unspecified; E86.9 Volume depletion, unspecified; E11.65 Type 2 diabetes mellitus with hyperglycemia; E11.43 Type 2 diabetes mellitus with diabetic autonomic (poly)neuropathy; F12.90 Cannabis use, unspecified, uncomplicated; Z91.14 Patient's other noncompliance with medication regimen; Z79.84 Long term (current) use of oral hypoglycemic drugs; Z88.0 Allergy status to penicillin
CPT/HCPCS: 96361; 96372; 96374; 96375; 99285; G0378; J1200; J1630; J2550; J3475; 82435-PO; 82565-PO; 82947-PO; 84132-PO; 84295-PO; 84520-PO; 85014-PO; J1815

== ENCOUNTER 2018-03-25 10:03 | Inpatient (IN) | payer OTHER ==
--- NOTE | 2018-03-25 10:18 | EDPHY ---
General - History Smoking Status: Never smoked Time Seen by Provider: 03/25/18 10:12 Narrative: CHIEF COMPLAINT: Abdominal pain, nausea vomiting HISTORY OF PRESENT ILLNESS: Patient presents by private vehicle with his spouse with complaints of abdominal pain, nausea and vomiting. He complains of severe abdominal pain at throughout. Started last night. It is consistent with previous gastroparesis type abdominal pain. He has had too numerous to count episodes of vomiting over the course of 12 hr. No bloody emesis. No constipation or diarrhea. He is an insulin-dependent diabetic with known gastroparesis with admission to this hospital February 15 for the same. He was doing well until last night. He says his blood sugars have been greater than 200 on a regular basis. He has had no fever. No urinary complaints. No cough or feelings of upper respiratory infection. He was admitted last time with conservative therapy with no need for surgical intervention. No other associated complaints or modifying factors. REVIEW OF SYSTEMS: 10 systems were reviewed and negative with the exception of the elements mentioned in the history of present illness. PCP: Dr. Campbell SPECIALISTS: None currently. No director of knowledge management PAST MEDICAL HISTORY: Insulin-dependent diabetic, gastroparesis, peripheral neuropathy cyclical vomiting PAST SURGICAL HISTORY: No recent surgical history SOCIAL HISTORY: Nonsmoker. FAMILY HISTORY: Noncontributory EXAMINATION: Vitals: Triage VS reviewed General Appearance: Alert, no distress Head: normocephalic, atraumatic Eyes: Pupils equal and round, no conjunctival pallor or injection ENT, Mouth: Mucous membranes moist Neck: Normal inspection, supple, non-tender Respiratory: Lungs are clear to auscultation Cardiovascular: Regular rate and rhythm no murmur Gastrointestinal: Abdomen is soft and nondistended. There is generalized tenderness throughout. No tympany rigidity. No guarding. No CVA tenderness. Bowel sounds are present all 4 quadrants. Neurological: A&O, nonfocal Skin: Warm and dry, no rash Extremities: Nontender, no pedal edema Psychiatric: Mood and affect normal DIFFERENTIAL DIAGNOSES: Including but not limited to gastroparesis, gastric outlet obstruction, ileus, small bowel obstruction, appendicitis, pancreatitis, cholecystitis, cholelithiasis MDM: 10:15 a.m. Acute nausea, vomiting and abdominal pain that is stated to be consistent with his previous gastroparesis. He does not have a surgical abdomen at this time. Vital signs are within normal limits. I discussed with him his successful medications, he reports that Dilaudid and Haldol have had some significant in the past. I have ordered these as well as laboratory studies including blood gas and BHB. Plain film be obtained. He is in no acute distress. No active vomiting during my examination. I have reviewed his previous admission and there was no evidence of DKA or HHS. 11:15 a.m. Laboratory studies revealed leukocytosis and significant hyperglycemia without acidosis. Minimal base deficit with minimal elevation of the anion gap. He does need IV fluid resuscitation and we will administer IV regular insulin. X- ray of the abdomen reveals no acute evidence of bowel obstruction by my read. I discussed with Dr. Gilbert will continue to medicate the patient. He will likely need admission the hospital. 11:45 a.m. No improvement with multiple rounds of medication for the patient. He will require admission the hospital for further IV fluid resuscitation, management of his glucose and anti emetic control. Case was discussed with the hospitalist and he will be admitted to Dr. Haro. He is admitted stable condition. SUPERVISION: Supervision secondary. CONSULTATION: Hospitalist admission (Kelby Helms) Medical Decision Making: PHYSICIAN DOCUMENTATION: The patient was evaluated and managed by the Physician [employer] and myself. I have reviewed the chart and in addition, I examined the patient myself at 1200. History confirmed as 2 days of acute symptoms. Physical findings as follows: No rebound or guarding on abdominal exam. 10 use IV insulin, symptomatic treatment, admission hospitalist service. Discussed with Kristal Cam for Kai Haro. I am the secondary supervising physician. (Santosh Gilbert) - Diagnostics Imaging Results: Imaging Impressions Abdomen X-Ray 03/25/18 10:31 Impression: No bowel obstruction. - Objective Vital Signs: Initial Vital Signs Temperature (C) 97.9 F 03/25/18 10:07 Heart Rate 61 03/25/18 10:07 Respiratory Rate 18 03/25/18 10:07 Blood Pressure 135/86 H 03/25/18 10:07 O2 Sat (%) 97 03/25/18 10:07 O2 Delivery Mode Room Air Allergies/Adverse Reactions: penicillin G Allergy (Verified 03/25/18 10:06) Unknown Home Medications: Medication Instructions Recorded Insulin Aspart [novoLOG] 5 unit SC PC PRN 02/12/18 Insulin Detemir [Levemir] 18 unit SQ BID 02/12/18 Promethazine HCl [Phenergan 12.5mg 12.5 mg PO Q6H PRN 02/12/18 tab] Laboratory Results: Laboratory Results 03/25/18 11:00 03/25/18 11:00 03/25/18 03/25/18 03/25/18 11:55 11:08 11:00 WBC RBC Hgb POC Hgb 17.7 gm/dL H gm/dL (13.7-17.5) Hct POC Hct 52 % H % (40-51) MCV MCH MCHC RDW Plt Count MPV Neut % (Auto) Lymph % (Auto) [place] % (Auto) Eos % (Auto) Baso % (Auto) Nucleat RBC Rel Count Absolute Neuts (auto) Absolute Lymphs (auto) Absolute Monos (auto) Absolute Eos (auto) Absolute Basos (auto) Absolute Nucleated RBC Immature Gran % Immature Gran # Puncture Site VENOUS Patient Temperature 37.0 DEGREES DEGREES VBG pH 7.46 H (7.31-7.42) VBG HCO3 17 mEQ/L L mEQ/L (22-26) VBG Total CO2 18 mEq/L L mEq/L (21-27) VBG O2 Saturation 99 % H % (65-75) VBG Base Excess -4.3 mEq/L L mEq/L (-2.5-2.5) Mixed VBG pCO2 24 mmHg L mmHg (40-44) Mixed VBG pO2 166 mmHG H mmHG (35-40) POC Sodium 142 mEq/L mEq/L (135-145) Sodium POC Potassium 3.9 mEq/L mEq/L (3.3-5.0) Potassium POC Chloride 106 mEq/L mEq/L (97-110) Chloride Carbon Dioxide Anion Gap POC BUN 14 mg/dL mg/dL (7-23) BUN Creatinine POC Creatinine 0.7 mg/dL mg/dL (0.7-1.3) Estimated GFR Glucose POC Glucose 427 mg/dL H mg/dL (70-100) Calcium Total Bilirubin Conjugated Bilirubin Unconjugated Bilirubin AST ALT Alkaline Phosphatase Total Protein Albumin Lipase Beta-Hydroxybutyrate Urine Color Pending Urine Appearance Pending Urine pH Pending Ur Specific [place] Pending Urine Protein Pending Urine Ketones Pending Urine Blood Pending Urine Nitrate Pending Urine Bilirubin Pending Urine Urobilinogen Pending Ur Leukocyte Esterase Pending Urine RBC Pending Urine WBC Pending Ur Epithelial Cells Pending Urine Glucose Pending 03/25/18 03/25/18 11:00 11:00 WBC 18.85 10^3/uL H 10^3/uL (3.80-9.50) RBC 5.71 10^6/uL 10^6/uL (4.40-6.38) Hgb 17.4 g/dL g/dL (13.7-17.5) POC Hgb Hct 49.5 % % (40.0-51.0) POC Hct MCV 86.7 fL fL (81.5-99.8) MCH 30.5 pg pg (27.9-34.1) MCHC 35.2 g/dL g/dL (32.4-36.7) RDW 12.7 % % (11.5-15.2) Plt Count 196 10^3/uL 10^3/uL (150-400) MPV 12.5 fL H fL (8.7-11.7) Neut % (Auto) 90.9 % H % (39.3-74.2) Lymph % (Auto) 5.0 % L % (15.0-45.0) [place] % (Auto) 3.0 % L % (4.5-13.0) Eos % (Auto) 0.0 % L % (0.6-7.6) Baso % (Auto) 0.3 % % (0.3-1.7) Nucleat RBC Rel Count 0.0 % % (0.0-0.2) Absolute Neuts (auto) 17.13 10^3/uL H 10^3/uL (1.70-6.50) Absolute Lymphs (auto) 0.94 10^3/uL L 10^3/uL (1.00-3.00) Absolute Monos (auto) 0.57 10^3/uL 10^3/uL (0.30-0.80) Absolute Eos (auto) 0.00 10^3/uL L 10^3/uL (0.03-0.40) Absolute Basos (auto) 0.06 10^3/uL 10^3/uL (0.02-0.10) Absolute Nucleated RBC 0.00 10^3/uL 10^3/uL (0-0.01) Immature Gran % 0.8 % % (0.0-1.1) Immature Gran # 0.15 10^3/uL H 10^3/uL (0.00-0.10) Puncture Site Patient Temperature VBG pH VBG HCO3 VBG Total CO2 VBG O2 Saturation VBG Base Excess Mixed VBG pCO2 Mixed VBG pO2 POC Sodium Sodium 140 mEq/L mEq/L (135-145) POC Potassium Potassium 4.6 mEq/L mEq/L (3.3-5.0) POC Chloride Chloride 107 mEq/L mEq/L (97-110) Carbon Dioxide 17 mEq/l L mEq/l (22-31) Anion Gap 16 mEq/L H mEq/L (6-14) POC BUN BUN 13 mg/dL mg/dL (7-23) Creatinine 0.7 mg/dL mg/dL (0.7-1.3) POC Creatinine Estimated GFR > 60 Glucose 401 mg/dL H mg/dL (70-100) POC Glucose Calcium 10.0 mg/dL mg/dL (8.5-10.4) Total Bilirubin 1.0 mg/dL mg/dL (0.1-1.4) Conjugated Bilirubin 0.4 mg/dL mg/dL (0.0-0.5) Unconjugated Bilirubin 0.6 mg/dL mg/dL (0.0-1.1) AST 19 IU/L IU/L (17-59) ALT 22 IU/L IU/L (21-72) Alkaline Phosphatase 99 IU/L IU/L (38-126) Total Protein 7.9 g/dL g/dL (6.3-8.2) Albumin 4.9 g/dL g/dL (3.5-5.0) Lipase 29 IU/L IU/L (23-300) Beta-Hydroxybutyrate 1.73 mmol/L H mmol/L (0.02-0.27) Urine Color Urine Appearance Urine pH Ur Specific [place] Urine Protein Urine Ketones Urine Blood Urine Nitrate Urine Bilirubin Urine Urobilinogen Ur Leukocyte Esterase Urine RBC Urine WBC Ur Epithelial Cells Urine Glucose Medications Given: Sodium Chloride (Ns) 1,000 mls @ 3,000 mls/hr IV ONCE ONE Stop: 03/25/18 12:30 Last Admin: 03/25/18 12:11 Dose: 1,000 mls Discontinued Medications Diphenhydramine HCl (Benadryl Injection) 25 mg IVP EDNOW ONE Stop: 03/25/18 11:26 Last Admin: 03/25/18 12:09 Dose: 25 mg Haloperidol Lactate (Haldol Injection) 2.5 mg IVP EDNOW ONE Stop: 03/25/18 10:20 Last Admin: 03/25/18 10:55 Dose: 2.5 mg Haloperidol Lactate (Haldol Injection) 2.5 mg IVP EDNOW ONE Stop: 03/25/18 11:26 Last Admin: 03/25/18 12:10 Dose: 2.5 mg Hydromorphone HCl (Dilaudid) 0.5 mg IVP EDNOW ONE Stop: 03/25/18 10:20 Last Admin: 03/25/18 10:55 Dose: 0.5 mg Insulin Human Regular (Humulin R) 10 unit IVP ONCE ONE Stop: 03/25/18 12:04 Last Admin: 03/25/18 12:16 Dose: 10 units Point of Care Test Results: Chemistry 03/25/18 11:08 POC Sodium 142 mEq/L mEq/L (135-145) POC Potassium 3.9 mEq/L mEq/L (3.3-5.0) POC Chloride 106 mEq/L mEq/L (97-110) POC BUN 14 mg/dL mg/dL (7-23) POC Creatinine 0.7 mg/dL mg/dL (0.7-1.3) POC Glucose 427 mg/dL H mg/dL (70-100) ISTAT H&H 03/25/18 11:08 POC Hgb 17.7 gm/dL H gm/dL (13.7-17.5) POC Hct 52 % H % (40-51) Departure - Departure Disposition: [facility] Inpatient Acute Clinical Impression: Intractable vomiting Abdominal pain Qualifiers: Abdominal location: generalized Qualified Code(s): R10.84 - Generalized abdominal pain Diabetes mellitus with hyperglycemia Qualifiers: Diabetes mellitus type: type 2 Diabetes mellitus prison insulin use: with coroner use Qualified Code(s): E11.65 - Type 2 diabetes mellitus with hyperglycemia; 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
[2018-03-25] MEDS ORDERED: HALOPERIDOL LACT 5 MG/ML INJ IVP ONE ×2 (10:19→11:25)
[2018-03-25] MEDS ORDERED: HYDROmorphONE/DILAUDID 1 MG/ML INJ IVP ONE (10:19)
[2018-03-25 11:12] LABS: PLATELET COUNT 196 10^3/uL (150-400)
[2018-03-25] MEDS ORDERED: INSULIN REGULAR HUMAN 100 UNIT/ML UNIT IVP ONE (12:03)
[2018-03-25] MEDS ORDERED: NS 1,000 ML IV ONE ×2 (12:11→12:41)
[2018-03-25] MEDS ORDERED: D50W 25 GM/50 ML SYR IVP PRN (13:01)
[2018-03-25] MEDS: NS 1,000 ML IV SCH (14:22)
--- NOTE | 2018-03-25 15:25 | PDGENHP ---
History and Physical - Chief Complaint Nausea/Vomiting - History of Present Illness Felipe Lilly is a 52 yo M with a PMHx of T2DM, Gastroparesis who presents to [facility] for nausea and vomiting. He reports that symptoms started 2 days ago. He has had decreased PO intake since. He denies any diarrhea, chest pain, shortness of breath, f/c. He reports that he takes 18 units of Lantus BID and his blood sugars have been relatively well controlled, he does report a reading of 400 this week though. History Information - Allergies/Home Medication List Allergies/Adverse Reactions: penicillin G Allergy (Verified 03/25/18 10:06) Unknown Home Medications: Insulin Aspart [novoLOG] 5 unit SC PC PRN 02/12/18 [Last Taken Unknown] Insulin Detemir [Levemir] 18 unit SQ BID 02/12/18 [Last Taken Unknown] Promethazine HCl [Phenergan 12.5mg tab] 12.5 mg PO Q6H PRN 02/12/18 [Last Taken Unknown] I have personally reviewed and updated: family history, medical history, social history, surgical history - Past Medical History diabetes type 2 Additional medical history: type 2 diabetes (c-peptide confirms) with peripheral neuropathy and retinopathy, marijuana dependence, medication non- compliance - Surgical History Reports: no pertinent surgical hx - Family History Positive for: cancer, diabetes type II, hypertension Additional family history: Denies family hx of gastrointestinal disease - Social History Smoking Status: Never smoked Drug Use: Marijuana Additional social history: Patient is and lives with and son. On disability for gastroparesis. Review of Systems Review of Systems: ROS: 10pt was reviewed & negative except for what was stated in HPI & below Physical Exam Physical Exam: Temp Pulse Resp BP Pulse Ox 37.1 C 77 18 112/69 98 03/25/18 13:04 03/25/18 13:04 03/25/18 13:04 03/25/18 13:04 03/25/18 13:04 Constitutional: uncomfortable Eyes: PERRL Ears, Nose, Mouth, Throat: dry mucous membranes Cardiovascular: regular rate and rhythym Respiratory: no respiratory distress, clear to auscultation Gastrointestinal: soft, non-tender abdomen Skin: warm Musculoskeletal: full muscle strength Neurologic: AAOx3 Psychiatric: flat affect Lab Data & Imaging Review 03/25/18 11:00 03/25/18 11:00 WBC 18.85 10^3/uL (3.80-9.50) H 03/25/18 11:00 RBC 5.71 10^6/uL (4.40-6.38) 03/25/18 11:00 Hgb 17.4 g/dL (13.7-17.5) 03/25/18 11:00 POC Hgb 17.7 gm/dL (13.7-17.5) H 03/25/18 11:08 Hct 49.5 % (40.0-51.0) 03/25/18 11:00 POC Hct 52 % (40-51) H 03/25/18 11:08 MCV 86.7 fL (81.5-99.8) 03/25/18 11:00 MCH 30.5 pg (27.9-34.1) 03/25/18 11:00 MCHC 35.2 g/dL (32.4-36.7) 03/25/18 11:00 RDW 12.7 % (11.5-15.2) 03/25/18 11:00 Plt Count 196 10^3/uL (150-400) 03/25/18 11:00 MPV 12.5 fL (8.7-11.7) H 03/25/18 11:00 Neut % (Auto) 90.9 % (39.3-74.2) H 03/25/18 11:00 Lymph % (Auto) 5.0 % (15.0-45.0) L 03/25/18 11:00 [place] % (Auto) 3.0 % (4.5-13.0) L 03/25/18 11:00 Eos % (Auto) 0.0 % (0.6-7.6) L 03/25/18 11:00 Baso % (Auto) 0.3 % (0.3-1.7) 03/25/18 11:00 Nucleat RBC Rel Count 0.0 % (0.0-0.2) 03/25/18 11:00 Absolute Neuts (auto) 17.13 10^3/uL (1.70-6.50) H 03/25/18 11:00 Absolute Lymphs (auto) 0.94 10^3/uL (1.00-3.00) L 03/25/18 11:00 Absolute Monos (auto) 0.57 10^3/uL (0.30-0.80) 03/25/18 11:00 Absolute Eos (auto) 0.00 10^3/uL (0.03-0.40) L 03/25/18 11:00 Absolute Basos (auto) 0.06 10^3/uL (0.02-0.10) 03/25/18 11:00 Absolute Nucleated RBC 0.00 10^3/uL (0-0.01) 03/25/18 11:00 Immature Gran % 0.8 % (0.0-1.1) 03/25/18 11:00 Immature Gran # 0.15 10^3/uL (0.00-0.10) H 03/25/18 11:00 Puncture Site VENOUS 03/25/18 11:00 Patient Temperature 37.0 DEGREES 03/25/18 11:00 VBG pH 7.46 (7.31-7.42) H 03/25/18 11:00 VBG HCO3 17 mEQ/L (22-26) L 03/25/18 11:00 VBG Total CO2 18 mEq/L (21-27) L 03/25/18 11:00 VBG O2 Saturation 99 % (65-75) H 03/25/18 11:00 VBG Base Excess -4.3 mEq/L (-2.5-2.5) L 03/25/18 11:00 Mixed VBG pCO2 24 mmHg (40-44) L 03/25/18 11:00 Mixed VBG pO2 166 mmHG (35-40) H 03/25/18 11:00 POC Sodium 142 mEq/L (135-145) 03/25/18 11:08 Sodium 140 mEq/L (135-145) 03/25/18 11:00 POC Potassium 3.9 mEq/L (3.3-5.0) 03/25/18 11:08 Potassium 4.6 mEq/L (3.3-5.0) 03/25/18 11:00 POC Chloride 106 mEq/L (97-110) 03/25/18 11:08 Chloride 107 mEq/L (97-110) 03/25/18 11:00 Carbon Dioxide 17 mEq/l (22-31) L 03/25/18 11:00 Anion Gap 16 mEq/L (6-14) H 03/25/18 11:00 POC BUN 14 mg/dL (7-23) 03/25/18 11:08 BUN 13 mg/dL (7-23) 03/25/18 11:00 Creatinine 0.7 mg/dL (0.7-1.3) 03/25/18 11:00 POC Creatinine 0.7 mg/dL (0.7-1.3) 03/25/18 11:08 Estimated GFR > 60 03/25/18 11:00 Glucose 401 mg/dL (70-100) H 03/25/18 11:00 POC Glucose 237 mg/dL (70-100) H 03/25/18 15:14 Calcium 10.0 mg/dL (8.5-10.4) 03/25/18 11:00 Total Bilirubin 1.0 mg/dL (0.1-1.4) 03/25/18 11:00 Conjugated Bilirubin 0.4 mg/dL (0.0-0.5) 03/25/18 11:00 Unconjugated Bilirubin 0.6 mg/dL (0.0-1.1) 03/25/18 11:00 AST 19 IU/L (17-59) 03/25/18 11:00 ALT 22 IU/L (21-72) 03/25/18 11:00 Alkaline Phosphatase 99 IU/L (38-126) 03/25/18 11:00 Total Protein 7.9 g/dL (6.3-8.2) 03/25/18 11:00 Albumin 4.9 g/dL (3.5-5.0) 03/25/18 11:00 Lipase 29 IU/L (23-300) 03/25/18 11:00 Beta-Hydroxybutyrate 1.73 mmol/L (0.02-0.27) H 03/25/18 11:00 Urine Color YELLOW 03/25/18 11:55 Urine Appearance CLEAR 03/25/18 11:55 Urine pH 5.0 (5.0-7.5) 03/25/18 11:55 Ur Specific [place] > 1.035 (1.002-1.030) H 03/25/18 11:55 Urine Protein NEGATIVE (NEGATIVE) 03/25/18 11:55 Urine Ketones 2+ (NEGATIVE) H 03/25/18 11:55 Urine Blood NEGATIVE (NEGATIVE) 03/25/18 11:55 Urine Nitrate NEGATIVE (NEGATIVE) 03/25/18 11:55 Urine Bilirubin NEGATIVE (NEGATIVE) 03/25/18 11:55 Urine Urobilinogen NEGATIVE EU (0.2-1.0) 03/25/18 11:55 Ur Leukocyte Esterase NEGATIVE (NEGATIVE) 03/25/18 11:55 Urine RBC 1-3 /hpf (0-3) 03/25/18 11:55 Urine WBC 1-3 /hpf (0-3) 03/25/18 11:55 Ur Epithelial Cells NONE SEEN /lpf (NONE-1+) 03/25/18 11:55 Urine Mucus TRACE /lpf (NONE-1+) 03/25/18 11:55 Urine Glucose 3+ (NEGATIVE) H 03/25/18 11:55 Assessment & Plan Assessment: Diabetes mellitus with hyperglycemia (Acute) - BG on arrival in 400's with AG 16, elevated B-Hydroxybutyrate, HC03 17, normal pH on VBG - S/p 10 unit regular insulin in ED with improvement in BG to 230's - Will restart patient's Lantus 18 units BID, SSI - Will continue aggressive IVF, electrolyte replacement PRN - Continue to monitor BMP including BG, AG, Bicarb, if patient does not improve with SubQ insulin and IVF, start DKA protocol with Insulin gtt Intractable nausea/vomiting (Acute) - Hx of gastroparesis (although normal Gastric emptying study 06/2017), cannabis hyperemesis syndrome - Likely acute in setting of hyperglycemia/DKA as above - Abdominal XR negative for obstruction on admission - IVF, anti-emetics PRN Previous extensive work up relatively unremarkable. He attributes to gastroparesis but had normal gastric emptying study recently. Instead, I suspect this is due to cannabis hyperemesis. Will treat with IV anti-emetics, pain medications, IVF. Discussed MJ cessation. Of note, he's had tardive dyskinesia with reglan in past. Leukocytosis - WBC 18 on admission - Elevated likely in setting of above - No localizing infectious symptoms on ROS and Physical exam - Continue to monitor CBC, if s/s of infection will pursue further w/u Anion Gap Metabolic Acidosis - AG 16, HCO3 17 on admission - Starvation ketosis vs. DKA - Management as above Uncontrolled T2DM - Management of hyperglycemia as above - Continue home Lantus 18 units BID for now, titrate as needed - A1c 12.3 in 06/2017, will repeat - SSI ordered Gastroparesis - Not currently on tx, refuses prokinetic medications at this time Marijuana dependence - Would benefit from resources on quitting or cognitive behavioral therapy, will discuss with patient FEN: IVF, NPO PPx: Lovenox Code: FULL Dispo: Admit to Observation, pending clinical course
[2018-03-25] MEDS ORDERED: ACETAMINOPHEN 325 MG TAB PO PRN (15:41)
[2018-03-25] MEDS: ONDANSETRON 4 MG/2 ML VIAL IVP PRN ×2 (15:56→21:10)
[2018-03-25] MEDS: PROMETHAZINE HCL 25 MG/ML INJ IVP PRN (18:18)
[2018-03-25] MEDS: INSULIN LISPRO 100 UNIT/ML SC SCH (18:27)
[2018-03-25] MEDS: CAPSACIAN 0.075% CREAM TP SCH ×2 (18:31→21:03)
[2018-03-25] MEDS ORDERED: INSULIN GLARGINE 100 UNITS/ML UNIT SC SCH (21:00)
[2018-03-25] MEDS ORDERED: INSULIN DETEMIR 18 UNIT SQ SCH (21:00)
[2018-03-25] MEDS ORDERED: KETOROLAC 30 MG/1 ML SDV IVP PRN (21:12)
[2018-03-25] MEDS: INSULIN GLARGINE 100 UNITS/ML UNIT SC SCH (21:28)
[2018-03-26] MEDS: NS 1,000 ML IV SCH ×3 (00:55→21:16)
[2018-03-26] MEDS: PROMETHAZINE HCL 25 MG/ML INJ IVP PRN ×2 (01:17→10:41)
[2018-03-26] MEDS: ONDANSETRON DISINTEGRATING 4 MG TAB PO PRN (04:33)
[2018-03-26] MEDS: ONDANSETRON 4 MG/2 ML VIAL IVP PRN (06:31)
[2018-03-26 08:23] LABS: PLATELET COUNT 160 10^3/uL (150-400)
[2018-03-26] MEDS: CAPSACIAN 0.075% CREAM TP SCH ×3 (08:39→21:12)
[2018-03-26] MEDS: INSULIN GLARGINE 100 UNITS/ML UNIT SC SCH ×2 (09:16→21:16)
[2018-03-26] MEDS: INSULIN LISPRO 100 UNIT/ML SC SCH ×3 (09:16→18:29)
[2018-03-26] MEDS: ENOXAPARIN 40 MG/0.4 ML SYR SC SCH (09:16)
--- NOTE | 2018-03-26 13:44 | HOSPPROG ---
Hospitalist Progress Note Assessment/Plan: Diabetes mellitus with hyperglycemia (Acute) - BG on arrival in 400's with AG 16, elevated B-Hydroxybutyrate, HC03 17, normal pH on VBG - S/p 10 unit regular insulin in ED with improvement in BG to 230's, AG closed, Hc03 increased - Continue Lantus 18 units BID, SSI - Will continue IVF, electrolyte replacement PRN Intractable nausea/vomiting (Acute) - Hx of gastroparesis (although normal Gastric emptying study 06/2017), cannabis hyperemesis syndrome - Likely acute in setting of hyperglycemia/DKA as above - Abdominal XR negative for obstruction on admission - IVF, anti-emetics PRN Leukocytosis - WBC 18 on admission, 16 this AM - Elevated likely in setting of above - No localizing infectious symptoms on ROS and Physical exam - Continue to monitor CBC, if s/s of infection will pursue further w/u Anion Gap Metabolic Acidosis - AG 16, HCO3 17 on admission, resolved since - Starvation ketosis vs. DKA - Management as above Uncontrolled T2DM - Management of hyperglycemia as above - Continue home Lantus 18 units BID for now, titrate as needed - A1c 12.3 in 06/2017, will repeat - SSI ordered Gastroparesis - Not currently on tx, refuses prokinetic medications at this time Marijuana dependence - Would benefit from resources on quitting or cognitive behavioral therapy, will discuss with patient FEN: IVF, NPO PPx: Lovenox Code: FULL Dispo: Pending clinical course Subjective: Patient reports nausea this morning Objective: Vital Signs Temp Pulse Resp BP Pulse Ox 37.3 C 60 20 121/55 H 99 03/26/18 12:00 03/26/18 12:00 03/26/18 12:00 03/26/18 12:00 03/26/18 12:00 Laboratory Results 03/26/18 08:09 03/26/18 08:09 03/25/18 03/26/18 03/27/18 05:59 05:59 05:59 Intake Total 5136 400 Output Total 301 Balance 4835 400 - Physical Exam Constitutional: uncomfortable Eyes: PERRL Ears, Nose, Mouth, Throat: moist mucous membranes Cardiovascular: regular rate and rhythym Respiratory: no respiratory distress Gastrointestinal: soft, non-tender abdomen Skin: warm Musculoskeletal: full muscle strength Neurologic: AAOx3 Psychiatric: interacting appropriately ICD10 Worksheet Patient Problems: Problems Problem Status Onset Abdominal pain Acute Diabetes mellitus with hyperglycemia Acute Intractable vomiting Acute Acidosis Acute Cyclic vomiting syndrome Acute Dehydration Acute Diabetes Acute Diabetic gastroparesis Acute Gastroparesis Acute Hyperglycemia Acute Hyperglycemia due to type 2 diabetes mellitus Acute Intractable nausea and vomiting Acute
--- NOTE | 2018-03-26 14:50 | ASMTCMCOM ---
CM Note CM Note Notes: Case Management Chart Review for Discharge Support: Patient is a 52 year old male who presented to [facility] ED for abdominal pain, nausea, and vomiting. Patient has hx of DM 2. Patient seen at [facility] for intractable nausea and vomiting 07/10 & 02/09. CM met with patient, states he has support and can discharge home independently when ready. CM to follow. D/C Plan: Home independent, likely in 1-2 days. Date Signed: 03/26/2018 02:50 PM Electronically Signed By:Laura Andrade
--- NOTE | 2018-03-26 16:05 | PDMN ---
Medical Necessity Medical necessity: [facility] M130 Diabetes: 52 yo presents w/ acute, intractable n/v, acute hyperglycemia 400s, initially obs but pt cont w/ persistent nausea, remains on IV fluids, frequent IV antiemetic admin, WBC remains elevated, BGs remain in the 200s. Pt will require additional MN for ongoing monitoring and tx of above. Hx DM, periph and retinal neuropathy, marijuana dependence, medication non-compliance, gastroparesis. Change to IP status 03/26/18@1344 per MD order.
[2018-03-27] MEDS: ONDANSETRON 4 MG/2 ML VIAL IVP PRN ×2 (01:09→05:20)
[2018-03-27] MEDS: PROMETHAZINE HCL 25 MG/ML INJ IVP PRN ×2 (01:32→07:42)
[2018-03-27] MEDS: ONDANSETRON DISINTEGRATING 4 MG TAB PO PRN (08:07)
[2018-03-27 08:31] VITALS: BP 149/93
[2018-03-27] MEDS ORDERED: PROMETHAZINE HCL 25 MG TAB PO PRN (08:54)
[2018-03-27] MEDS: ENOXAPARIN 40 MG/0.4 ML SYR SC SCH (09:09)
[2018-03-27] MEDS: INSULIN LISPRO 100 UNIT/ML SC SCH (09:09)
[2018-03-27] MEDS: INSULIN GLARGINE 100 UNITS/ML UNIT SC SCH (09:09)
[2018-03-27] MEDS: CAPSACIAN 0.075% CREAM TP SCH (09:22)
--- NOTE | 2018-03-27 12:34 | PDDCSUM ---
Discharge Summary Discharge Summary: Date of Admission: 03/25/2018 Date of Discharge: 03/27/2018 Consults: N/A Followup: PCP Hospital Course Problem List: Diabetes mellitus with hyperglycemia (Acute) - BG on arrival in 400's with AG 16, elevated B-Hydroxybutyrate, HC03 17, normal pH on VBG - S/p 10 unit regular insulin in ED with improvement in BG to 230's, AG closed, Hc03 increased - Continue Lantus 18 units BID, SSI Intractable nausea/vomiting (Acute) - Hx of gastroparesis (although normal Gastric emptying study 06/2017), cannabis hyperemesis syndrome - Likely acute in setting of hyperglycemia/DKA as above - Abdominal XR negative for obstruction on admission - IVF, anti-emetics PRN Leukocytosis - WBC 18 on admission - Elevated likely in setting of above - No localizing infectious symptoms on ROS and Physical exam - Continue to monitor CBC, if s/s of infection will pursue further w/u Anion Gap Metabolic Acidosis - AG 16, HCO3 17 on admission, resolved since - Starvation ketosis vs. DKA - Management as above Uncontrolled T2DM - Management of hyperglycemia as above - Continue home Lantus 18 units BID for now, titrate as needed - A1c 12.3 in 06/2017 - SSI ordered Gastroparesis - Not currently on tx, refuses prokinetic medications at this time Marijuana dependence - Would benefit from resources on quitting or cognitive behavioral therapy Time spent on discharge was >35 minutes with >50% of time spent on patient education and counseling.
== END 2018-03-27 13:13 | disposition home or self-care (01) | DRG 638 ==
LOC: INTOOBSV 11:59 → F3E 13:02 → OBSVTOIN 03-26 13:44
PROVIDERS: ADMIT Internal Medicine; ATTEND Internal Medicine
DX: E11.65 Type 2 diabetes mellitus with hyperglycemia (principal); E11.43 Type 2 diabetes mellitus with diabetic autonomic (poly)neuropathy; E11.319 Type 2 diabetes mellitus with unspecified diabetic retinopathy without macular edema; F12.20 Cannabis dependence, uncomplicated; Z91.14 Patient's other noncompliance with medication regimen; E87.2 Acidosis; Z79.4 Long term (current) use of insulin
CPT/HCPCS: 82435-PO; 82565-PO; 82947-PO; 84132-PO; 84295-PO; 84520-PO; 85014-PO; 96374; G0378; J1170; J1200; J1630; J1650; J1815; J1885; J2405; J2550

== ENCOUNTER 2018-03-27 23:51 | Inpatient (IN) | payer OTHER ==
--- NOTE | 2018-03-27 23:59 | EDPHY ---
H & P Stated Complaint: N/V, GASTROPERESIS, STARTED @ 2200/ DC'D FROM INPT TODAY Time Seen by Provider: 03/27/18 23:59 HPI/ROS: HPI The patient presents with abdominal pain, nausea, vomiting which began at about 3:00 p.m. Today. He was discharged from the hospital at about noon for vomiting and mild DKA. At about 3:00 p.m. He developed aching in his stomach and then began to have nausea and vomiting. He believes he has thrown up 7 times in the course of the last several hours. He reports diffuse in aching pain which is intermittent throughout his abdomen. He took a dose of promethazine at home, however symptoms continued so comes into the emergency department. He checked his blood glucose and it was 150. . REVIEW OF SYSTEMS 10 systems were reviewed and negative with the exception of the elements mentioned in the history of present illness. PMHx: Type 2 diabetes on insulin, history of diabetic gastroparesis versus cyclic vomiting syndrome Soc Hx: Uses marijuana, housed PHYSICAL General Appearance: Alert, no distress Eyes: Pupils equal and round no pallor or injection ENT, Mouth: Mucous membranes dry Respiratory: There are no retractions, lungs are clear to auscultation Cardiovascular: Regular rate and rhythm Gastrointestinal: Abdomen is soft and non-tender, no masses, bowel sounds normal Neurological: A&O, moves all extremities Skin: Warm and dry, no rashes Musculoskeletal: Neck is supple non tender Extremities: symmetrical, full range of motion Psychiatric: Patient is oriented X 3, there is no agitation Source: Patient Exam Limitations: No limitations - Personal History Current Tetanus Diphtheria and Acellular Pertussis (TDAP): No - Medical/Surgical History Hx Asthma: No Hx Chronic Respiratory Disease: No Hx Diabetes: Yes Hx Cardiac Disease: No Hx Renal Disease: No Hx Cirrhosis: No Hx Alcoholism: No Hx HIV/AIDS: No Hx Splenectomy or Spleen Trauma: No Other PMH: GASTROPARISIS r/t DM 2 poorly controlled, periph neuropathy, cyclical vomiting, marijuana use daily - Social History Smoking Status: Never smoked Constitutional: Initial Vital Signs Temperature (C) 36.9 C 03/27/18 23:55 Heart Rate 80 03/27/18 23:55 Respiratory Rate 16 03/27/18 23:55 Blood Pressure 158/95 H 03/27/18 23:55 O2 Sat (%) 99 12/03/18 23:55 O2 Delivery Mode Room Air Allergies/Adverse Reactions: penicillin G Allergy (Verified 03/25/18 10:06) Unknown Home Medications: Medication Instructions Recorded Insulin Aspart [novoLOG] 5 unit SC PC PRN 02/12/18 Insulin Detemir [Levemir] 18 unit SQ BID 02/12/18 Promethazine HCl [Phenergan 12.5mg 12.5 mg PO Q6H PRN 02/12/18 tab] Acetaminophen [Tylenol 325mg (*)] 650 mg PO Q4HRS PRN tab 03/27/18 Medical Decision Making Differential Diagnosis: This is a 52-year-old man with history of type 2 diabetes, diabetic gastroparesis versus cyclic vomiting syndrome, also daily marijuana use who presents from home with recurrent nausea, vomiting, abdominal pain since discharged from the hospital earlier in the day. On arrival here, he does appear dehydrated and uncomfortable. His abdominal exam is benign. In the emergency department, basic labs were checked, these were unremarkable, showing no signs of DKA. He was given IV fluids and Phenergan with some relief in his symptoms. He then was given Haldol which allowed him to rest for several hours. Differential diagnosis includes diabetic gastroparesis, cyclic vomiting syndrome , cannabinoid hyperemesis syndrome. After several hours he awoke and began dry heaving again. He requests admission to the hospital. Given that we have observed him for several hours here and his symptoms are not well controlled, I feel this is reasonable. I will consult with Dr. Plummer of the hospitalist service and order the patient a bed. - Data Points Laboratory Results: Laboratory Results 03/28/18 00:10 03/28/18 00:10 03/28/18 03/28/18 03/28/18 01:45 00:10 00:10 WBC 10.75 10^3/uL H 10^3/uL (3.80-9.50) RBC 4.67 10^6/uL 10^6/uL (4.40-6.38) Hgb 14.7 g/dL g/dL (13.7-17.5) Hct 40.3 % % (40.0-51.0) MCV 86.3 fL fL (81.5-99.8) MCH 31.5 pg pg (27.9-34.1) MCHC 36.5 g/dL g/dL (32.4-36.7) RDW 12.6 % % (11.5-15.2) Plt Count 171 10^3/uL 10^3/uL (150-400) MPV 11.9 fL H fL (8.7-11.7) Neut % (Auto) 74.9 % H % (39.3-74.2) Lymph % (Auto) 14.1 % L % (15.0-45.0) [place] % (Auto) 9.9 % % (4.5-13.0) Eos % (Auto) 0.1 % L % (0.6-7.6) Baso % (Auto) 0.4 % % (0.3-1.7) Nucleat RBC Rel Count 0.0 % % (0.0-0.2) Absolute Neuts (auto) 8.06 10^3/uL H 10^3/uL (1.70-6.50) Absolute Lymphs (auto) 1.52 10^3/uL 10^3/uL (1.00-3.00) Absolute Monos (auto) 1.06 10^3/uL H 10^3/uL (0.30-0.80) Absolute Eos (auto) 0.01 10^3/uL L 10^3/uL (0.03-0.40) Absolute Basos (auto) 0.04 10^3/uL 10^3/uL (0.02-0.10) Absolute Nucleated RBC 0.00 10^3/uL 10^3/uL (0-0.01) Immature Gran % 0.6 % % (0.0-1.1) Immature Gran # 0.06 10^3/uL 10^3/uL (0.00-0.10) Sodium 138 mEq/L mEq/L (135-145) Potassium 3.2 mEq/L L mEq/L (3.3-5.0) Chloride 105 mEq/L mEq/L (97-110) Carbon Dioxide 21 mEq/l L mEq/l (22-31) Anion Gap 12 mEq/L mEq/L (6-14) BUN 9 mg/dL mg/dL (7-23) Creatinine 0.7 mg/dL mg/dL (0.7-1.3) Estimated GFR > 60 Glucose 169 mg/dL H mg/dL (70-100) Calcium 8.9 mg/dL mg/dL (8.5-10.4) Total Bilirubin 1.7 mg/dL H mg/dL (0.1-1.4) AST 20 IU/L IU/L (17-59) ALT 27 IU/L IU/L (21-72) Alkaline Phosphatase 72 IU/L IU/L (38-126) Total Protein 6.8 g/dL g/dL (6.3-8.2) Albumin 4.2 g/dL g/dL (3.5-5.0) Urine Color PALE YELLOW Urine Appearance CLEAR Urine pH 6.0 (5.0-7.5) Ur Specific [place] 1.008 (1.002-1.030) Urine Protein NEGATIVE (NEGATIVE) Urine Ketones 1+ H (NEGATIVE) Urine Blood NEGATIVE (NEGATIVE) Urine Nitrate NEGATIVE (NEGATIVE) Urine Bilirubin NEGATIVE (NEGATIVE) Urine Urobilinogen 2.0 EU H EU (0.2-1.0) Ur Leukocyte Esterase NEGATIVE (NEGATIVE) Urine RBC 1-3 /hpf /hpf (0-3) Urine WBC 1-3 /hpf /hpf (0-3) Ur Epithelial Cells NONE SEEN /lpf /lpf (NONE-1+) Urine Mucus TRACE /lpf /lpf (NONE-1+) Urine Glucose 1+ H (NEGATIVE) Medications Given: Discontinued Medications Diphenhydramine HCl (Benadryl Injection) 25 mg IVP EDNOW ONE Stop: 03/28/18 01:07 Last Admin: 03/28/18 01:06 Dose: 25 mg Haloperidol Lactate (Haldol Injection) 2.5 mg IVP EDNOW ONE Stop: 03/28/18 01:07 Last Admin: 03/28/18 01:07 Dose: 2.5 mg Sodium Chloride (Ns) 1,000 mls @ 0 mls/hr IV EDNOW ONE; Wide Open PRN Reason: Protocol Stop: 03/28/18 00:24 Last Admin: 03/28/18 00:24 Dose: 1,000 mls Sodium Chloride (Ns) 1,000 mls @ 0 mls/hr IV EDNOW ONE; Wide Open PRN Reason: Protocol Stop: 03/28/18 02:55 Last Admin: 03/28/18 02:58 Dose: 1,000 mls Lorazepam (Ativan Injection) 1 mg IVP EDNOW ONE Stop: 03/28/18 02:55 Last Admin: 03/28/18 02:58 Dose: 1 mg Promethazine HCl (Phenergan) 12.5 mg IVP EDNOW ONE Stop: 03/28/18 00:23 Last Admin: 03/28/18 00:23 Dose: 12.5 mg Departure - Departure Disposition: [facility] Inpatient Acute Clinical Impression: Intractable vomiting Qualifiers: Vomiting type: unspecified Nausea presence: with nausea Qualified Code(s): R11.2 - Nausea with vomiting, unspecified Diabetes mellitus with hyperglycemia Qualifiers: Diabetes mellitus type: type 2 Diabetes mellitus 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
[2018-03-28 00:17] LABS: PLATELET COUNT 171 10^3/uL (150-400)
[2018-03-28] MEDS ORDERED: PROMETHAZINE HCL 25 MG/ML INJ ONE (00:21)
[2018-03-28] MEDS ORDERED: PROMETHAZINE HCL 25 MG/ML INJ IVP ONE (00:22)
[2018-03-28] MEDS ORDERED: NS 1,000 ML IV ONE ×2 (00:23→02:54)
[2018-03-28] MEDS ORDERED: HALOPERIDOL LACT 5 MG/ML INJ ONE (01:00)
[2018-03-28] MEDS ORDERED: HALOPERIDOL LACT 5 MG/ML INJ IVP ONE (01:06)
[2018-03-28] MEDS ORDERED: LORazepam 2 MG/ML INJ IVP ONE (02:54)
[2018-03-28] MEDS ORDERED: LORazepam 2 MG/ML INJ ONE (02:55)
[2018-03-28] MEDS ORDERED: CAPSACIAN 0.075% CREAM TP ONE (03:02)
[2018-03-28] MEDS ORDERED: ONDANSETRON 4 MG/2 ML VIAL IVP PRN (03:04)
[2018-03-28] MEDS ORDERED: ACETAMINOPHEN 325 MG TAB PO PRN (03:04)
[2018-03-28] MEDS ORDERED: PROMETHAZINE HCL 25 MG/ML INJ IVP PRN (03:04)
[2018-03-28] MEDS ORDERED: LORazepam 2 MG/ML INJ IVP PRN (03:04)
[2018-03-28] MEDS ORDERED: D50W 25 GM/50 ML SYR IVP PRN (03:06)
--- NOTE | 2018-03-28 03:42 | PDGENHP ---
History and Physical - Chief Complaint Nausea, vomiting - History of Present Illness 52 yo M w/ IDDM and cyclic vomiting/CHS presents with nausea and vomiting. The patient was discharged yesterday after admission dating 03/25-03/27 for the same symptoms. He has been admitted 10 times in the last 12 months for the same. He had a normal gastric emptying study in June of this year. He is a heavy marijuana user. Today he is refusing to answer most of my questions. He wants to sleep and will only tell me that he felt poorly after being discharged yesterday afternoon. Laboratory work-up is mostly unremarkable. Case discussed with ED physician Dr. Smith; records reviewed and summarized above. History Information - Allergies/Home Medication List Allergies/Adverse Reactions: penicillin G Allergy (Verified 03/25/18 10:06) Unknown Home Medications: Insulin Aspart [novoLOG] 5 unit SC PC PRN 02/12/18 [Last Taken Unknown] Insulin Detemir [Levemir] 18 unit SQ BID 02/12/18 [Last Taken Unknown] Promethazine HCl [Phenergan 12.5mg tab] 12.5 mg PO Q6H PRN 02/12/18 [Last Taken Unknown] I have personally reviewed and updated: family history, medical history - Past Medical History diabetes type 2 Additional medical history: type 2 diabetes (c-peptide confirms) with peripheral neuropathy and retinopathy, marijuana dependence, medication non- compliance - Surgical History Reports: no pertinent surgical hx - Family History Positive for: cancer, diabetes type II, hypertension Additional family history: Denies family hx of gastrointestinal disease - Social History Smoking Status: Never smoked Additional social history: Patient is and lives with and son. On disability for gastroparesis. Review of Systems Review of Systems: ROS: 10pt was reviewed & negative except for what was stated in HPI & below Physical Exam Physical Exam: Temp Pulse Resp BP Pulse Ox 37.2 C 80 18 117/65 96 03/28/18 03:37 03/28/18 03:37 03/28/18 03:37 03/28/18 03:37 03/28/18 03:37 Constitutional: appears nourished, uncomfortable Eyes: PERRL, EOMI Ears, Nose, Mouth, Throat: moist mucous membranes, no oral mucosal ulcers Cardiovascular: regular rate and rhythym, no murmur, rub, or gallop Respiratory: no respiratory distress, clear to auscultation Gastrointestinal: normoactive bowel sounds, tenderness (Diffuse), No guarding, No rebound, No distension Skin: warm, normal color Musculoskeletal: full muscle strength, no muscle tenderness Neurologic: AAOx3, CN II-XII Intact Psychiatric: depressed, flat affect Lab Data & Imaging Review 03/28/18 00:10 03/28/18 00:10 WBC 10.75 10^3/uL (3.80-9.50) H 03/28/18 00:10 RBC 4.67 10^6/uL (4.40-6.38) 03/28/18 00:10 Hgb 14.7 g/dL (13.7-17.5) 03/28/18 00:10 Hct 40.3 % (40.0-51.0) 03/28/18 00:10 MCV 86.3 fL (81.5-99.8) 03/28/18 00:10 MCH 31.5 pg (27.9-34.1) 03/28/18 00:10 MCHC 36.5 g/dL (32.4-36.7) 03/28/18 00:10 RDW 12.6 % (11.5-15.2) 03/28/18 00:10 Plt Count 171 10^3/uL (150-400) 03/28/18 00:10 MPV 11.9 fL (8.7-11.7) H 03/28/18 00:10 Neut % (Auto) 74.9 % (39.3-74.2) H 03/28/18 00:10 Lymph % (Auto) 14.1 % (15.0-45.0) L 03/28/18 00:10 [place] % (Auto) 9.9 % (4.5-13.0) 03/28/18 00:10 Eos % (Auto) 0.1 % (0.6-7.6) L 03/28/18 00:10 Baso % (Auto) 0.4 % (0.3-1.7) 03/28/18 00:10 Nucleat RBC Rel Count 0.0 % (0.0-0.2) 03/28/18 00:10 Absolute Neuts (auto) 8.06 10^3/uL (1.70-6.50) H 03/28/18 00:10 Absolute Lymphs (auto) 1.52 10^3/uL (1.00-3.00) 03/28/18 00:10 Absolute Monos (auto) 1.06 10^3/uL (0.30-0.80) H 03/28/18 00:10 Absolute Eos (auto) 0.01 10^3/uL (0.03-0.40) L 03/28/18 00:10 Absolute Basos (auto) 0.04 10^3/uL (0.02-0.10) 03/28/18 00:10 Absolute Nucleated RBC 0.00 10^3/uL (0-0.01) 03/28/18 00:10 Immature Gran % 0.6 % (0.0-1.1) 03/28/18 00:10 Immature Gran # 0.06 10^3/uL (0.00-0.10) 03/28/18 00:10 Sodium 138 mEq/L (135-145) 03/28/18 00:10 Potassium 3.2 mEq/L (3.3-5.0) L 03/28/18 00:10 Chloride 105 mEq/L (97-110) 03/28/18 00:10 Carbon Dioxide 21 mEq/l (22-31) L 03/28/18 00:10 Anion Gap 12 mEq/L (6-14) 03/28/18 00:10 BUN 9 mg/dL (7-23) 03/28/18 00:10 Creatinine 0.7 mg/dL (0.7-1.3) 03/28/18 00:10 Estimated GFR > 60 03/28/18 00:10 Glucose 169 mg/dL (70-100) H 03/28/18 00:10 Calcium 8.9 mg/dL (8.5-10.4) 03/28/18 00:10 Total Bilirubin 1.7 mg/dL (0.1-1.4) H 03/28/18 00:10 AST 20 IU/L (17-59) 03/28/18 00:10 ALT 27 IU/L (21-72) 03/28/18 00:10 Alkaline Phosphatase 72 IU/L (38-126) 03/28/18 00:10 Total Protein 6.8 g/dL (6.3-8.2) 03/28/18 00:10 Albumin 4.2 g/dL (3.5-5.0) 03/28/18 00:10 Urine Color PALE YELLOW 03/28/18 01:45 Urine Appearance CLEAR 03/28/18 01:45 Urine pH 6.0 (5.0-7.5) 03/28/18 01:45 Ur Specific [place] 1.008 (1.002-1.030) 03/28/18 01:45 Urine Protein NEGATIVE (NEGATIVE) 03/28/18 01:45 Urine Ketones 1+ (NEGATIVE) H 03/28/18 01:45 Urine Blood NEGATIVE (NEGATIVE) 03/28/18 01:45 Urine Nitrate NEGATIVE (NEGATIVE) 03/28/18 01:45 Urine Bilirubin NEGATIVE (NEGATIVE) 03/28/18 01:45 Urine Urobilinogen 2.0 EU (0.2-1.0) H 03/28/18 01:45 Ur Leukocyte Esterase NEGATIVE (NEGATIVE) 03/28/18 01:45 Urine RBC 1-3 /hpf (0-3) 03/28/18 01:45 Urine WBC 1-3 /hpf (0-3) 03/28/18 01:45 Ur Epithelial Cells NONE SEEN /lpf (NONE-1+) 03/28/18 01:45 Urine Mucus TRACE /lpf (NONE-1+) 03/28/18 01:45 Urine Glucose 1+ (NEGATIVE) H 03/28/18 01:45 Assessment & Plan Assessment: 52 yo M w/ IDDM and cyclic vomiting/CHS presents with ongoing nausea and vomiting symptoms. Plan: 1. Cyclic Vomiting, acute on chronic symptoms - Possibly CHS; patient had normal gastric emptying study in June. He was discharged yesterday after treatment for the same. He has been admitted over 10 times in the last 12 months. - mIVF, anti-emetics PRN - Radio Adjuster marijuana cessation 2. IDDM - Continue home regimen of insulin glargine 18 u BID + lispro SSI. - Monitor BG ACHS - D50 IV PRN for hypoglycemia Diet - Clears, ADAT Code - Full Ppx - LMWH Dispo - Admit under observation status
[2018-03-28] MEDS: NS W/ 20 KCl/L 1,000 ML IV SCH ×2 (04:04→18:55)
[2018-03-28] MEDS ORDERED: PROTOCOL POTASSIUM 1 DOSE MISC PRN (07:58)
--- NOTE | 2018-03-28 09:42 | HOSPPROG ---
Hospitalist Progress Note Assessment/Plan: 52 yo M w/ IDDM and cyclic vomiting/CHS presents with nausea and vomiting. The patient was discharged yesterday after admission dating 03/25-03/27 for the same symptoms. He has been admitted 10 times in the last 12 months for the same. He had a normal gastric emptying study in June of this year. He is a heavy marijuana user. He uses Marijuana to help w nausea. 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 - Monitor BG ACHS - D50 IV PRN for hypoglycemia *Plan: will cont iv hydration, anti-emetics, K pad. He is just starting to tolerated clear liquids late this afternoon. He is likely to return if discharged too soon. Will monitor over night and if he can eat and drink, will dc in the morning Subjective: Felipe said he has ongoing nausea. Objective: Vital Signs Temp Pulse Resp BP Pulse Ox 36.9 C 75 20 123/76 H 95 03/28/18 07:38 03/28/18 07:38 03/28/18 07:38 03/28/18 07:38 03/28/18 07:38 03/27/18 03/28/18 03/29/18 05:59 05:59 05:59 Intake Total 2200 Balance 2200 - Physical Exam Constitutional: uncomfortable Eyes: PERRL Ears, Nose, Mouth, Throat: hearing normal Cardiovascular: regular rate and rhythym Respiratory: no respiratory distress Gastrointestinal: soft, non-tender abdomen, No normoactive bowel sounds ( slightly hypoactive) Skin: warm Musculoskeletal: full muscle strength Neurologic: AAOx3 Psychiatric: interacting appropriately ICD10 Worksheet Patient Problems: Problems Problem Status Onset Diabetes mellitus with hyperglycemia Acute Intractable vomiting Acute Abdominal pain Acute Acidosis Acute Cyclic vomiting syndrome Acute Dehydration Acute Diabetes Acute Diabetic gastroparesis Acute Gastroparesis Acute Hyperglycemia Acute Hyperglycemia due to type 2 diabetes mellitus Acute Intractable nausea and vomiting Acute
--- NOTE | 2018-03-28 10:24 | ASMTCASEMG ---
Living Arrangements What is your living Answers: With Spouse arrangement? Who do you live with? Type Of Residence What kind of residence do Answers: Apartment you live in? Discharge Plan Comments Coordination Status Comments Notes: Patient is a 52yo male who returns to the hospital after being discahrged on 03/27/18 for the same symptoms. Patient has cyclic vomiting on chronic symptoms with IDDM. He has been admitted 10 times in the last 12 months. Patient is here OBS for now. CM will follow. Date Signed: 03/28/2018 10:23 AM Electronically Signed By:Mary Alexander LCSW
[2018-03-28] MEDS: INSULIN LISPRO 100 UNIT/ML SC SCH ×3 (10:43→17:50)
[2018-03-28] MEDS: ENOXAPARIN 40 MG/0.4 ML SYR SC SCH (10:49)
[2018-03-28] MEDS: INSULIN GLARGINE 100 UNITS/ML UNIT SC SCH (10:50)
[2018-03-28] MEDS: ONDANSETRON DISINTEGRATING 4 MG TAB PO PRN ×2 (12:04→19:58)
[2018-03-28] MEDS ORDERED: CAPSACIAN 0.075% CREAM TP SCH (16:00)
--- NOTE | 2018-03-28 16:40 | PDMN ---
Medical Necessity Medical necessity: MCG M370 Vomitin yo w/ hx IDDM and cyclic vomiting/CHS presents w/ N/V. Pt d/c yesterday for same s/sx. Admitted 10 times in last 12 mo for same. Initially OBS but pt cont w/ nausea, requires IVF until he can alaina PO. Change to IP status 03/28/18 @1622 per RELIGION TEACHER order
[2018-03-28] MEDS ORDERED: POTASSIUM CL 10 MEQ TAB PO ONE ×2 (17:54→21:49)
[2018-03-28] MEDS ORDERED: INSULIN GLARGINE 100 UNITS/ML UNIT SC SCH (21:00)
[2018-03-29] MEDS: ONDANSETRON DISINTEGRATING 4 MG TAB PO PRN (03:04)
[2018-03-29] MEDS: NS W/ 20 KCl/L 1,000 ML IV SCH (04:53)
[2018-03-29] MEDS ORDERED: POTASSIUM CL 10 MEQ TAB PO ONE ×2 (07:20→10:45)
[2018-03-29] MEDS: INSULIN LISPRO 100 UNIT/ML SC SCH ×2 (10:15→14:54)
[2018-03-29] MEDS: ENOXAPARIN 40 MG/0.4 ML SYR SC SCH (10:24)
[2018-03-29] MEDS: INSULIN GLARGINE 100 UNITS/ML UNIT SC SCH (10:25)
--- NOTE | 2018-03-29 11:39 | HOSPPROG ---
Hospitalist Progress Note Assessment/Plan: 52 yo M w/ IDDM and cyclic vomiting/CHS presents with nausea and vomiting. The patient was discharged yesterday after admission dating 03/25-03/27 for the same symptoms. He has been admitted 10 times in the last 12 months for the same. He had a normal gastric emptying study in June of this year. He is a heavy marijuana user. He uses Marijuana to help w nausea. * Cyclic Vomiting, acute on chronic symptoms - - patient had normal gastric emptying study in June - offered him a GI consult, he'd like to wait on this - mIVF, anti-emetics PRN - Suture Winder Hand marijuana cessation (he tells me he is planning on quitting, but says this frequently) - he says he has been diagnosed w gastroparesis, gave him a hand out on treatment of this, recommending he see someone at [facility] to evaluate if he would qualify for a gastric pacer *IDDM - - insulin glargine 18 u BID + lispro SSI. - Monitor BG ACHS - D50 IV PRN for hypoglycemia *Plan: eating and drinking well, has no pain. Subjective: Felipe said he feels fine, wants to go home Objective: Vital Signs Temp Pulse Resp BP Pulse Ox 37.0 C 77 16 135/92 H 98 03/29/18 07:41 03/29/18 07:41 03/29/18 07:41 03/29/18 07:41 03/29/18 07:41 Laboratory Results 03/29/18 04:53 03/28/18 03/29/18 03/30/18 05:59 05:59 05:59 Intake Total 1700 Balance 1700 - Physical Exam Constitutional: no apparent distress, appears nourished, not in pain Eyes: PERRL Ears, Nose, Mouth, Throat: hearing normal Gastrointestinal: soft, non-tender abdomen, No normoactive bowel sounds ( hypoactive) Skin: warm Musculoskeletal: full muscle strength Neurologic: AAOx3 Psychiatric: interacting appropriately ICD10 Worksheet Patient Problems: Problems Problem Status Onset Diabetes mellitus with hyperglycemia Acute Intractable vomiting Acute Abdominal pain Acute Acidosis Acute Cyclic vomiting syndrome Acute Dehydration Acute Diabetes Acute Diabetic gastroparesis Acute Gastroparesis Acute Hyperglycemia Acute Hyperglycemia due to type 2 diabetes mellitus Acute Intractable nausea and vomiting Acute
[2018-03-29 11:43] VITALS: BP 127/91
--- NOTE | 2018-03-29 12:12 | ASMTCMCOM ---
CM Note CM Note Notes: Pts case discussed w/ Kristal Cam NP. Pt will d/c without any needs. CM avaialble for changes. Date Signed: 03/29/2018 12:11 PM Electronically Signed By:WILNER Smith
--- NOTE | 2018-03-29 12:13 | ASMTLACE ---
LACE Length of stay for Answers: 3 days current admission Acuity / Level of Answers: Yes Care: Did the patient have an inpatient admission? Comorbidities - select Answers: Diabetes (uncontrolled or all that apply controlled) # of Emergency department Answers: 5-8 visits in the last 6 months Score: 11 Date Signed: 03/29/2018 12:12 PM Electronically Signed By:WILNER Smith
--- NOTE | 2018-03-29 16:19 | GDS ---
DISCHARGE DIAGNOSES: 1. Cyclic vomiting, acute on chronic symptoms, most likely hyperemesis syndrome secondary to cannabi s use. 2. Insulin-dependent diabetes. HISTORY OF PRESENT ILLNESS: Briefly, the patient is a 52-year-old male who has been admitted 10 time s the last 12 months for similar symptoms. He has a history of cyclic vomiting and presented to the ER with nausea and vomiting. He was initially discharged after being here from March 25 through and came back because his symptoms had not resolved. He has had a normal gastric emptying stud y in June of this year. He is a heavy marijuana user. HOSPITAL COURSE: 1. Cyclic vomiting, acute on chronic, likely hyperemesis syndrome secondary to cannabis use. I offe red him a gastrointestinal MD consult. He would like to wait on this. I counseled him on marijuana cessation. He says he is planning on quitting, but he frequently says this. I have told him if he d oes not get any improvement because he has been diagnosed with gastroparesis, to consider being seen down at [facility] to evaluate if he might qualify for a gastric pacer. 2. Insulin-dependent diabetes. Resumed his home regimen. DISCHARGE CONDITION: Stable. Blood pressure is 127/91, heart rate of 78, respiratory rate of 16, O2 sats on room air 96%. Temperature is 36.8 Celsius. DISCHARGE MEDICATIONS: Please see the EMR. DISCHARGE INSTRUCTIONS: 1. To follow up with his PCP. 2. Recommending cannabis cessation. 3. To return to the ER if he develops fever, chills, chest pain, or is unable to take in adequate in take. /[id number]/MODL
== END 2018-03-29 13:20 | disposition home or self-care (01) | DRG 392 ==
LOC: F3E 03-28 03:34 → OBSVTOIN 03-28 16:22
PROVIDERS: ADMIT Student in an Organized Health Care Education/Training Program; ATTEND Internal Medicine
DX: K31.89 Other diseases of stomach and duodenum (principal); F12.988 Cannabis use, unspecified with other cannabis-induced disorder; R11.2 Nausea with vomiting, unspecified; E11.9 Type 2 diabetes mellitus without complications; Z79.4 Long term (current) use of insulin
CPT/HCPCS: 96374; J1200; J1630; J1650; J1815; J2060; J2405; J2550